=== PATIENT | male | born 1935 | race Caucasian/White ===

== ENCOUNTER 2016-11-19 02:28 | Inpatient (IN) | payer MEDICARE ==
[~2016-11-19] VITALS: Ht 182.9 cm; Wt 109.9 kg
[2016-11-19 04:14] VITALS: BP 182/94
[2016-11-19] MEDS ORDERED: PRED-220 PO (04:29)
[2016-11-19] MEDS ORDERED: ACET325T9 PO (04:29)
[2016-11-19] MEDS ORDERED: METO50TA10 PO (04:29)
[2016-11-19] MEDS ORDERED: SPIR25TA PO (04:29)
[2016-11-19] MEDS ORDERED: ASCO-78 PO (04:29)
[2016-11-19] MEDS ORDERED: SERT50TA PO (04:29)
[2016-11-19] MEDS ORDERED: GLYB2.5T2 PO (04:29)
[2016-11-19] MEDS ORDERED: MELA3TAB2 PO (04:29)
[2016-11-19] MEDS ORDERED: ZINC220T PO (04:29)
[2016-11-19] MEDS ORDERED: ALLO100T PO (04:29)
[2016-11-19] MEDS ORDERED: TELM40TA PO (04:29)
[2016-11-19] MEDS ORDERED: RIVA15TA PO (04:29)
[2016-11-19] MEDS ORDERED: ANTI-COAG MONITOR BY PHARMACY. MC PRN (04:45)
[2016-11-19] MEDS ORDERED: MAG HYDROX/AL HYDROX/SIMETH 30 ML ORAL.SUSP PO PRN (04:45)
[2016-11-19] MEDS ORDERED: ACETAMINOPHEN 325 MG TABLET PO PRN ×2 (04:45→17:39)
[2016-11-19] MEDS ORDERED: METHYL SALICYLATE/MENTHOL TOPICAL OINTMENT 29GM TUBE. TP PRN (04:45)
--- NOTE | 2016-11-19 05:35 | EKG ---
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
[2016-11-19 06:26] LABS: BASO % 1 % (0-3); EOS # 0.1 x10^3/uL (0.0-0.7); EOS % 1 % (0-3); HEMATOCRIT 33.4 % (39.0-53.0); HEMOGLOBIN 11.2 g/dL (13.0-17.5); LYMPH # 0.8 x10^3/uL (1.0-4.8); LYMPH % 15 % (24-48); MEAN CORPUSCULAR HEMOGLOBIN 31 pg (25-35); MEAN CORPUSCULAR HGB CONC 33 g/dL (31-37); MEAN CORPUSCULAR VOLUME 92 fL (79-100); MONO # 0.5 x10^3/uL (0.0-1.1); MONO % 9 % (0-9); NEUT # 3.7 x10^3uL (1.8-7.7); NEUT % 74 % (31-73); PLATELET COUNT 172 x10^3/uL (140-400); RED BLOOD COUNT 3.63 x10^6/uL (4.30-5.70); WHITE BLOOD COUNT 5.1 x10^3/uL (4.0-11.0)
[2016-11-19 06:40] LABS: ALBUMIN 3.2 g/dL (3.4-5.0); ALBUMIN/GLOBULIN RATIO 1.1 (1.0-1.7); CALCIUM 9.6 mg/dL (8.5-10.1); CREATININE 1.5 mg/dL (0.7-1.3); GFR 44.7; MAGNESIUM 1.8 mg/dL (1.8-2.4); POTASSIUM 3.8 mmol/L (3.5-5.1); TOTAL BILIRUBIN 0.5 mg/dL (0.2-1.0); TOTAL PROTEIN 6.2 g/dL (6.4-8.2)
[2016-11-19] MEDS ORDERED: METOPROLOL SUCC 24HR ER 50 MG TAB.ER.24H. PO SCH (09:00)
[2016-11-19] MEDS: SERTRALINE 50 MG TABLET. PO SCH (09:21)
[2016-11-19] MEDS: ASCORBIC ACID 500 MG TABLET PO SCH ×2 (09:21→20:25)
[2016-11-19] MEDS: SPIRONOLACTONE 25 MG TABLET PO SCH (09:21)
[2016-11-19] MEDS: ZINC SULFATE 220 MG CAPSULE. PO SCH (09:21)
[2016-11-19] MEDS: ALLOPURINOL 100 MG TABLET. PO SCH (09:21)
[2016-11-19] MEDS: LOSARTAN 50 MG TABLET. PO SCH (09:22)
[2016-11-19] MEDS: predniSONE 10 MG TABLET PO SCH (09:22)
[2016-11-19] MEDS: glyBURIDE 5 MG TABLET PO SCH (09:22)
[2016-11-19] MEDS: RIVAROXABAN 15 MG TABLET. PO SCH (09:22)
[2016-11-19 11:21] LABS: THYROID STIM HORMONE (TSH) 1.526 uIU/mL (0.358-3.740)
[2016-11-19 15:55] VITALS: BP 170/79
[2016-11-19] MEDS ORDERED: METOPROLOL SUCC 24HR ER 25 MG TAB.ER.24H. PO ONE (17:15)
[2016-11-19 18:08] LABS: T3 TOTAL 89 ng/dL (71-180); THYROXINE 5.7 ug/dL (4.5-12.0)
--- NOTE | 2016-11-19 19:52 | PDOC ---
Exam Reynaldo Demential Exam: Reynaldo Note: Please also refer to the separate dictated note~for this date of service dictated separately.~Patient seen individually. Discussed the patient with Nursing staff reviewed the chart.~Reviewed interim history and current functioning. Reviewed vital signs,~Labs/ Radiology~and current medications noted below. Continue current treatment with the changes noted in the dictated addendum note Assessment: Vital Signs: Vital Signs Date Time Temp Pulse Resp B/P (MAP) Pulse Ox O2 Delivery O2 Flow Rate FiO2 11/19/16 17:33 83 170/79 11/19/16 15:55 98.0 20 97 11/19/16 04:14 Room Air Labs: Laboratory Tests Test 11/19/16 06:05 White Blood Count 5.1 x10^3/uL (4.0-11.0) Red Blood Count 3.63 x10^6/uL (4.30-5.70) L Hemoglobin 11.2 g/dL (13.0-17.5) L Hematocrit 33.4 % (39.0-53.0) L Mean Corpuscular Volume 92 fL (79-100) Mean Corpuscular Hemoglobin 31 pg (25-35) Mean Corpuscular Hemoglobin Concent 33 g/dL (31-37) Red Cell Distribution Width 14.0 % (11.5-14.5) Platelet Count 172 x10^3/uL (140-400) Neutrophils (%) (Auto) 74 % (31-73) H Lymphocytes (%) (Auto) 15 % (24-48) L Monocytes (%) (Auto) 9 % (0-9) Eosinophils (%) (Auto) 1 % (0-3) Basophils (%) (Auto) 1 % (0-3) Neutrophils # (Auto) 3.7 x10^3uL (1.8-7.7) Lymphocytes # (Auto) 0.8 x10^3/uL (1.0-4.8) L Monocytes # (Auto) 0.5 x10^3/uL (0.0-1.1) Eosinophils # (Auto) 0.1 x10^3/uL (0.0-0.7) Basophils # (Auto) 0.0 x10^3/uL (0.0-0.2) Sodium Level 145 mmol/L (136-145) Potassium Level 3.8 mmol/L (3.5-5.1) Chloride Level 109 mmol/L (98-107) H Carbon Dioxide Level 27 mmol/L (21-32) Anion Gap 9 (6-14) Blood Urea Nitrogen 19 mg/dL (8-26) Creatinine 1.5 mg/dL (0.7-1.3) H Estimated GFR (Cockcroft-Gault) 44.7 BUN/Creatinine Ratio 13 (6-20) Glucose Level 106 mg/dL (70-99) H Calcium Level 9.6 mg/dL (8.5-10.1) Magnesium Level 1.8 mg/dL (1.8-2.4) Iron Level 35 ug/dL (65-175) L Total Iron Binding Capacity 267 ug/dL (250-450) Iron Saturation 13 % (15-34) L Total Bilirubin 0.5 mg/dL (0.2-1.0) Aspartate Amino Transferase (AST) 10 U/L (15-37) L Alanine Aminotransferase (ALT) 14 U/L (16-63) L Alkaline Phosphatase 53 U/L (46-116) Total Protein 6.2 g/dL (6.4-8.2) L Albumin 3.2 g/dL (3.4-5.0) L Albumin/Globulin Ratio 1.1 (1.0-1.7) Triglycerides Level 156 mg/dL (0-150) H Cholesterol Level 178 mg/dL (0-200) LDL Cholesterol, Calculated 118 mg/dL (0-100) H VLDL Cholesterol, Calculated 31 mg/dL (0-40) Non-HDL Cholesterol Calculated 149 mg/dL (0-129) H HDL Cholesterol 29 mg/dL (40-60) L Cholesterol/HDL Ratio 6.0 Vitamin B12 Level 317 pg/mL (247-911) 25-Hydroxy Vitamin D Total Pending Thyroid Stimulating Hormone (TSH) 1.526 uIU/mL (0.358-3.740) Thyroxine (T4) 5.7 ug/dL (4.5-12.0) Total Triiodothyronine (TT3) 89 ng/dL (71-180) RPR Titer Additional Testing Pending Current Medications: Meds: Current Medications Acetaminophen (Tylenol) 650 mg PRN Q6HRS PRN PO PAIN / TEMP; Start 11/19/16 at 04:45; Stop 11/19/16 at 17:39; Status DC Multi-Ingredient Ointment (Analgesic Morrow) 1 rajesh PRN QID PRN TP MUSCLE PAIN; Start 11/19/16 at 04:45 Al Hydroxide/Mg Hydroxide (Mylanta Plus Xs) 15 ml PRN AFTMEALHC PRN PO DYSPEPSIA; Start 11/19/16 at 04:45 Magnesium Hydroxide (Milk Of Magnesia) 2,400 mg PRN QHS PRN PO CONSTIPATION; Start 11/19/16 at 04:45 Sertraline HCl (Zoloft) 50 mg DAILY PO Last administered on 11/19/16 09:21; Start 11/19/16 at 09:00 Melatonin 3 mg QHS PO ; Start 11/19/16 at 21:00 Allopurinol (Zyloprim) 100 mg DAILY PO Last administered on 11/19/16 09:21; Start 11/19/16 at 09:00 Metoprolol Succinate (Toprol Xl) 50 mg DAILY PO Last administered on 11/19/16 09:21; Start 11/19/16 at 09:00; Stop 11/19/16 at 17:14; Status DC Prednisone (Prednisone) 10 mg DAILY PO Last administered on 11/19/16 09:22; Start 11/19/16 at 09:00 Rivaroxaban (Xarelto) 15 mg DAILY PO Last administered on 11/19/16 09:22; Start 11/19/16 at 09:00 Spironolactone (Aldactone) 25 mg DAILY PO Last administered on 11/19/16 09:21; Start 11/19/16 at 09:00 Ascorbic Acid (Vitamin C) 500 mg BID PO Last administered on 11/19/16 09:21; Start 11/19/16 at 09:00 Glyburide (Diabeta) 2.5 mg DAILYWBKFT PO Last administered on 11/19/16 09:22; Start 11/19/16 at 08:00 Losartan Potassium (Cozaar) 100 mg DAILY PO Last administered on 11/19/16 09:22 ; Start 11/19/16 at 09:00 Zinc Sulfate (Orazinc) 220 mg DAILY PO Last administered on 11/19/16 09:21; Start 11/19/16 at 09:00 Info (Anti-Coagulation Monitoring By Pharmacy) 1 each PRN DAILY PRN MC SEE COMMENTS; Start 11/19/16 at 04:45 Olanzapine (ZyPREXA ZYDIS) 2.5 mg PRN Q2HR PRN PO PSYCHOSIS; Start 11/19/16 at 05:15 Metoprolol Succinate (Toprol Xl) 50 mg 1X ONCE PO Last administered on t 17:33; Start 11/19/16 at 17:15; Stop 11/19/16 at 17:16; Status DC Metoprolol Succinate (Toprol Xl) 100 mg DAILY PO ; Start 11/20/16 at 09:00 Acetaminophen (Tylenol) 650 mg PRN Q6HRS PRN PO PAIN / TEMP; Start 11/19/16 at 17:39 Mirtazapine (Remeron) 7.5 mg QHS PO ; Start 11/19/16 at 21:00 Risperidone (RisperDAL) 0.25 mg QHS PO ; Start 11/19/16 at 21:00 Active Scripts Active Reported Zinc Sulfate 220 Mg Tablet 220 Mg PO DAILY Micardis (Telmisartan) 40 Mg Tablet 40 Mg PO BID Aldactone (Spironolactone) 25 Mg Tablet 25 Mg PO DAILY Zoloft (Sertraline Hcl) 50 Mg Tablet 50 Mg PO DAILY Xarelto (Rivaroxaban) 15 Mg Tablet 15 Mg PO DAILY Prednisone 10 Mg Tablet 10 Mg PO DAILY Take 3 tablets by mouth twice a day for 3 days, then take 2 tablets by mouth twice a day for 3 days, then take 1 tablet by mouth twice a day for 3 days, then take 1 tablet by mouth daily x 3 days, then stop. Metoprolol Succinate ( Xl ) (Metoprolol Succinate) 50 Mg Tab.er.24h 50 Mg PO DAILY Glyburide 2.5 Mg Tablet 2.5 Mg PO DAILY Melatonin 3 Mg Tablet 3 Mg PO QHS Vitamin C (Ascorbate Calcium) 500 Mg Tablet 500 Mg PO BID Allopurinol 100 Mg Tablet 100 Mg PO DAILY Tylenol (Acetaminophen) 325 Mg Tablet 325 Mg PO PRN Q4HRS PRN Diagnosis: Problems: (1) Anxiety disorder (2) Psychosis, atypical (3) Impulse control disorder JANEY LAI MD Nov 19, 2016 19:52
[2016-11-19] MEDS: risperiDONE 0.25 MG TABLET. PO SCH (20:27)
[2016-11-19] MEDS: MELATONIN 3 MG TABLET PO SCH (20:27)
[2016-11-19] MEDS: MIRTAZAPINE 7.5 MG TABLET. PO SCH (20:27)
--- NOTE | 2016-11-19 22:52 | CONS ---
DATE OF CONSULTATION: 11/19/2016 HISTORY OF PRESENT ILLNESS: The patient is an 81-year-old male patient who apparently was seen at [facility] with concerns for worsening hallucinations that began about 6 months ago. The patient's family is concerned because these hallucinations are happening more frequently. They initially occurred once or twice per month but now occur daily. He states he sees people black and white. Sometimes he sees multiple people, some memorable people including young girl with mental retardation and various exotic dancers and this is concerning because he feels that these people are real, not hallucinations, even though he describes them as hallucination. He denies any history of auditory hallucination. He states that this hallucination disappeared when he turns the light on and only happens at nighttime, never in the daytime. [facility] inpatient psychiatric stabilization. PAST MEDICAL HISTORY: Significant for atrial fibrillation, chronic obstructive pulmonary disease, type 2 diabetes, gout, hypertension, and stroke. PAST SURGICAL HISTORY: Significant for hemorrhoidectomy and knee surgery. 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 FAMILY HISTORY: Unremarkable. SOCIAL HISTORY: He is . He is a former smoker, used to smoke 3 packs per day for 20 years. He does not drink alcohol or use any recreational drugs. 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 ALLERGIES: He is allergic to PENICILLIN, CIPROFLOXACIN, CODEINE, DABIGATRAN ETEXILATE, FENOFIBRATE, NIACIN, OMEGA 3, AND TIOTROPIUM. MEDICATIONS: He is currently on following medications: He is on Tylenol 650 mg every 4 hours, allopurinol 100 mg once a day, ascorbate calcium 500 mg twice a day, glyburide 2.5 mg once a day, melatonin 3 mg at bedtime, metoprolol succinate 50 mg once a day, prednisone 10 mg once a day, rivaroxaban or Xarelto 15 mg once a day, sertraline 50 mg once a day. He is on spironolactone 25 mg once a day, Micardis 40 mg p.o. b.i.d., zinc sulfate 220 mg once a day. PHYSICAL EXAMINATION: GENERAL: When I examined him, he was sitting on the edge of the bed comfortably in no apparent respiratory distress. He is somewhat pale, but no jaundice, cyanosis, or thyromegaly. No jugular venous distention. No limb edema. VITAL SIGNS: His heart rate was 83, blood pressure was 170/79, temperature was 98, respiratory rate 20, and oxygen saturation was 97%. HEAD, EYES, EARS, NOSE, AND THROAT: Showed normocephalic, atraumatic. NECK: Supple. HEART: Showed normal first and second heart sounds with no gallop, rub, or murmur. CHEST: Clear to auscultation. No crepitation or rhonchi. ABDOMEN: Distended, soft, nontender. NEUROLOGIC: He is awake, alert. All his cranial nerves are intact. EXTREMITIES: He moves extremities without difficulty, ambulates with a walker. LABORATORY DATA: His lab work showed a white cell count of 5100, hemoglobin 11, hematocrit 33, MCV 92, and platelet count of 172,000. Serum sodium was 145, potassium 3.8, chloride 109, bicarbonate 27, anion gap of 9, BUN 19, creatinine 1.5, estimated GFR was 44 mL per minute, his glucose 106, calcium was 9.6, and magnesium 1.8. Serum iron was 35, TIBC was 267, and iron saturation was 13%. Total bilirubin, AST, ALT, alkaline phosphatase were normal. Total protein 6.2, albumin 3.2. His triglycerides 156. Total cholesterol was 78, LDL cholesterol was 118, VLDL was 31, and HDL cholesterol was 29. Vitamin B12 was 317 picogram and TSH was 1.5-6. IMPRESSION: In summary, this is an 81-year-old male patient who was evaluated at the [facility] for a new onset of hallucinations that started about 6 months ago initially occasionally and now it is more persistent. 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 He has no past psychiatric history with no previous admission to any psych unit. No suicidal or homicidal ideation. He has multiple medical problems including atrial fibrillation, chronic obstructive pulmonary disease, type 2 diabetes, gout, hypertension and has had a stroke. So far, all his vital signs are stable, although his blood pressure is somewhat high. His lab work showed that he has deranged kidney function with a creatinine of 1.5 and mild protein-calorie malnutrition. From the medical point of view, the patient seems to be mostly stable, although his blood pressure is not optimally controlled and his kidney function is slightly abnormal. PLAN: My plan is to observe him further and to see if the blood pressure gets better after perhaps using all his medications as he is on losartan potassium. He is on spironolactone and metoprolol. I will check also his lab work including his hemoglobin A1c and scan his bladder to make sure that he does not have any urinary retention. Thank you, Dr. Hawkins, for allowing me to participate in the care of this patient. CONNOR GRAVES MD DR: GHISLAINE/nila JOB#: [id number] / [id number]
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
--- NOTE | 2016-11-20 01:14 | ACF ---
Admission Criteria Forms PSYCHIATRIC DISORDERS Clinical Indications for Inpatient Care (Place 'X' for any and all applicable criteria): Ongoing inpatient care may be needed for 1 or more of the following(1)(2)(3)(4)( 6)(7)(8): [ ]I. Danger to self or others not manageable at lower level of care. [ ]II. Grave disability (eg, inability to perform self care necessary at lower level of care) [ ]III. Agitation or inappropriate behavior interfering with care for primary condition (eg, attempting to discontinue lines or drains prematurely, unable to cooperate with respiratory care) [x]IV. Severe disability or disorder indicated by ALL of the following: [x]a) Severe behavioral health disorder-related symptoms or condition indicated by 1 or more of the following: [ ]i) Severe problem with cognition, memory, judgment, or impulse control [x]ii) Severe clinical manifestations (eg, hallucinations, delusions, other acute psychotic symptoms, domo, extreme agitation or anxiety) [x]b) Patient management at lower level of care is not feasible until acute intervention or modification is initiated. Extended stay beyond goal length of stay for the primary condition may be needed untilALLof the following are present(1)(2)(3)(4)(722)(23): [ ]a) Danger to self or others is absent or manageable at lower level of care [ ]b) Behavior crisis management, including physical or chemical restraints, is required and is not available at a lower level of care. [ ]c) Behavioral symptoms (e.g., agitation, somnolence, inappropriate behavior) are present, and are not manageable at a lower level of care. [ ]d) Patient cannot understand follow-up treatment and crisis plan. [ ]e) Provider and supports are sufficiently available at lower level of care. [ ]f) Patient can participate (e.g., verify absence of plan for harm) and is in needed of monitoring. The original [facility] [employer] content created by [facility] [employer] has been revised. The portions of the content which have been revised are identified through the use of italic text, and Jan [employer] has neither reviewed nor approved the modified material. All other unmodified content is copyright [facility] [employer]. Please see references footnoted in the original [facility] edition 2015 Admission Criteria Met?: Yes ANKIT FUNES Nov 20, 2016 01:14
[2016-11-20 06:05] VITALS: BP 149/79
[2016-11-20] MEDS: ZINC SULFATE 220 MG CAPSULE. PO SCH (07:49)
[2016-11-20] MEDS: ASCORBIC ACID 500 MG TABLET PO SCH ×2 (07:49→19:54)
[2016-11-20] MEDS: glyBURIDE 5 MG TABLET PO SCH (07:49)
[2016-11-20] MEDS: SPIRONOLACTONE 25 MG TABLET PO SCH (07:50)
[2016-11-20] MEDS: ALLOPURINOL 100 MG TABLET. PO SCH (07:50)
[2016-11-20] MEDS: RIVAROXABAN 15 MG TABLET. PO SCH (07:50)
[2016-11-20] MEDS: predniSONE 10 MG TABLET PO SCH (07:50)
[2016-11-20] MEDS: LOSARTAN 50 MG TABLET. PO SCH (07:50)
[2016-11-20] MEDS: SERTRALINE 50 MG TABLET. PO SCH (07:50)
[2016-11-20] MEDS: METOPROLOL SUCC 24HR ER 100 MG TAB.ER.24H. PO SCH (07:52)
--- NOTE | 2016-11-20 14:29 | RAD ---
CT head without contrast 11/20/2016 Clinical indication: History of brain tumor resection in November 2014. Comparison: None. Technique: Multiple noncontrast CT images of the head obtained according to standard protocol. PQRS Compliance Statement: One or more of the following individualized dose reduction techniques were utilized for this examination: 1. Automated exposure control 2. Adjustment of the mA and/or kV according to patient size 3. Use of iterative reconstruction technique Head findings: There are postsurgical changes of a prior translabyrinthine right tumor debulking with multiple punctate foci of low attenuation underlying the cranioplasty which likely represents fat packing. There is high density soft tissue adjacent to the prior resection which likely represents residual tumor. There are wedge-shaped low-attenuation old infarct in medial left cerebellar hemisphere. Ventricles and subarachnoid spaces are normal in size and configuration. There are patchy supratentorial hemispheric white matter low attenuation. The basal cisterns are patent. Waddell-white matter interfaces are otherwise maintained. No midline shift. Visualized globes and orbits are unremarkable. Impression: 1. No acute intracranial hemorrhage or midline shift. 2. Prior right translabyrinthine tumor debulking with probable fat packing subjacent to the cranioplasty with adjacent high density soft tissue which likely represents residual tumor. 3. Old medial left cerebellar infarct and mild nonspecific white matter disease, most, seen in chronic small vessel ischemic disease.
[2016-11-20 16:22] VITALS: BP 184/94
--- NOTE | 2016-11-20 16:54 | RAD ---
Renal ultrasound, 11/20/2016: History: Impaired renal function The right kidney measures 10.7 cm in length while the left kidney measures 11.8 cm. There is no evidence of hydronephrosis. Several small cysts are present in both kidneys. The largest of these on the right lies in the upper pole and measures 2.5 cm. The largest cyst on the left is 1.4 cm. The renal parenchymal echogenicity is otherwise within normal limits. Limited views of the urinary bladder demonstrate an impression upon its base due to an enlarged prostate gland. The bladder is otherwise unremarkable. IMPRESSION: 1. Small bilateral renal cysts. 2. No evidence of renal obstruction.
[2016-11-20] MEDS: MIRTAZAPINE 7.5 MG TABLET. PO SCH (19:54)
[2016-11-20] MEDS: MELATONIN 3 MG TABLET PO SCH (19:54)
[2016-11-20] MEDS: risperiDONE 0.25 MG TABLET. PO SCH (19:54)
[2016-11-20] MEDS: APIXABAN 2.5 MG TABLET PO SCH (19:56)
[2016-11-20] MEDS: MECLIZINE 12.5 MG TABLET. PO SCH (19:56)
--- NOTE | 2016-11-20 20:05 | PDOC ---
Exam Reynaldo Demential Exam: Reynaldo Note: Please also refer to the separate dictated note~for this date of service dictated separately.~Patient seen individually. Discussed the patient with Nursing staff reviewed the chart.~Reviewed interim history and current functioning. Reviewed vital signs,~Labs/ Radiology~and current medications noted below. Continue current treatment with the changes noted in the dictated addendum note Assessment: Vital Signs: Vital Signs Date Time Temp Pulse Resp B/P (MAP) Pulse Ox O2 Delivery O2 Flow Rate FiO2 11/20/16 16:22 97.0 77 18 184/94 (124) 96 11/19/16 04:14 Room Air I&O Intake and Output 11/20/16 07:00 Intake Total 720 ml Balance 720 ml Intake Oral 720 ml Labs: Laboratory Tests Test 11/20/16 06:14 Uric Acid 8.4 mg/dL (3.5-7.2) H Current Medications: Meds: Current Medications Acetaminophen (Tylenol) 650 mg PRN Q6HRS PRN PO PAIN / TEMP; Start 11/19/16 at 04:45; Stop 11/19/16 at 17:39; Status DC Multi-Ingredient Ointment (Analgesic [place]) 1 rajesh PRN QID PRN TP MUSCLE PAIN; Start 11/19/16 at 04:45 Al Hydroxide/Mg Hydroxide (Mylanta Plus Xs) 15 ml PRN AFTMEALHC PRN PO DYSPEPSIA; Start 11/19/16 at 04:45 Magnesium Hydroxide (Milk Of Magnesia) 2,400 mg PRN QHS PRN PO CONSTIPATION; Start 11/19/16 at 04:45 Sertraline HCl (Zoloft) 50 mg DAILY PO Last administered on 11/20/16 07:50; Start 11/19/16 at 09:00 Melatonin 3 mg QHS PO Last administered on 11/20/16 19:54; Start 11/19/16 at 21: 00 Allopurinol (Zyloprim) 100 mg DAILY PO Last administered on 11/20/16 07:50; Start 11/19/16 at 09:00 Metoprolol Succinate (Toprol Xl) 50 mg DAILY PO Last administered on 11/19/16 09:21; Start 11/19/16 at 09:00; Stop 11/19/16 at 17:14; Status DC Prednisone (Prednisone) 10 mg DAILY PO Last administered on 11/20/16 07:50; Start 11/19/16 at 09:00 Rivaroxaban (Xarelto) 15 mg DAILY PO Last administered on 11/20/16 07:50; Start 11/19/16 at 09:00; Stop 11/20/16 at 17:18; Status DC Spironolactone (Aldactone) 25 mg DAILY PO Last administered on 11/20/16 07:50; Start 11/19/16 at 09:00 Ascorbic Acid (Vitamin C) 500 mg BID PO Last administered on 11/20/16 19:54; Start 11/19/16 at 09:00 Glyburide (Diabeta) 2.5 mg DAILYWBKFT PO Last administered on 11/20/16 07:49; Start 11/19/16 at 08:00 Losartan Potassium (Cozaar) 100 mg DAILY PO Last administered on 11/20/16 07:50 ; Start 11/19/16 at 09:00 Zinc Sulfate (Orazinc) 220 mg DAILY PO Last administered on 11/20/16 07:49; Start 11/19/16 at 09:00 Info (Anti-Coagulation Monitoring By Pharmacy) 1 each PRN DAILY PRN [facility] SEE COMMENTS; Start 11/19/16 at 04:45 Olanzapine (ZyPREXA ZYDIS) 2.5 mg PRN Q2HR PRN PO PSYCHOSIS; Start 11/19/16 at 05:15 Metoprolol Succinate (Toprol Xl) 50 mg 1X ONCE PO Last administered on 17:33; Start 11/19/16 at 17:15; Stop 11/19/16 at 17:16; Status DC Metoprolol Succinate (Toprol Xl) 100 mg DAILY PO Last administered on 11/20/16 07:52; Start 11/20/16 at 09:00 Acetaminophen (Tylenol) 650 mg PRN Q6HRS PRN PO PAIN / TEMP; Start 11/19/16 at 17:39 Mirtazapine (Remeron) 7.5 mg QHS PO Last administered on 11/20/16 19:54; Start 11/19/16 at 21:00 Risperidone (RisperDAL) 0.25 mg QHS PO Last administered on 11/20/16 19:54; Start 11/19/16 at 21:00 Apixaban (Eliquis) 2.5 mg BID PO Last administered on 11/20/16 19:56; Start 11/20/16 at 21:00 Meclizine HCl (Antivert) 25 mg BID PO Last administered on 11/20/16 19:56; Start 11/20/16 at 21:00 Ferrous Sulfate (Feosol) 325 mg DAILYWBKFT PO ; Start 11/21/16 at 08:00 Cyanocobalamin (Vitamin B-12) 1,000 mcg DAILY PO ; Start 11/21/16 at 09:00 Active Scripts Active Reported Zinc Sulfate 220 Mg Tablet 220 Mg PO DAILY Micardis (Telmisartan) 40 Mg Tablet 40 Mg PO BID Aldactone (Spironolactone) 25 Mg Tablet 25 Mg PO DAILY Zoloft (Sertraline Hcl) 50 Mg Tablet 50 Mg PO DAILY Xarelto (Rivaroxaban) 15 Mg Tablet 15 Mg PO DAILY Prednisone 10 Mg Tablet 10 Mg PO DAILY Take 3 tablets by mouth twice a day for 3 days, then take 2 tablets by mouth twice a day for 3 days, then take 1 tablet by mouth twice a day for 3 days, then take 1 tablet by mouth daily x 3 days, then stop. Metoprolol Succinate ( Xl ) (Metoprolol Succinate) 50 Mg Tab.er.24h 50 Mg PO DAILY Glyburide 2.5 Mg Tablet 2.5 Mg PO DAILY Melatonin 3 Mg Tablet 3 Mg PO QHS Vitamin C (Ascorbate Calcium) 500 Mg Tablet 500 Mg PO BID Allopurinol 100 Mg Tablet 100 Mg PO DAILY Tylenol (Acetaminophen) 325 Mg Tablet 325 Mg PO PRN Q4HRS PRN Diagnosis: Problems: (1) Anxiety disorder (2) Psychosis, atypical (3) Impulse control disorder JANEY LAI MD Nov 20, 2016 20:05
[2016-11-20] MEDS: MAGNESIUM HYDROXIDE 2,400 MG/30 ML ORAL.SUSP. PO PRN (21:01)
[2016-11-21 06:26] VITALS: BP 176/95
--- NOTE | 2016-11-21 07:03 | CONS ---
DATE OF CONSULTATION: NEURO CONSULT REFERRING PHYSICIAN: Dr. Hawkins. REASON FOR CONSULTATION: Severe dizziness and unsteadiness. HISTORY OF PRESENT ILLNESS: This is an 81-year-old right-handed white male who was admitted to Emergency Room today after he presented with chief complaint of six-month history of visual hallucinations. The patient describes night visual hallucinations seeing some memorable people and exotic dancers. The hallucination usually disappears after he turns the light on. Therefore, he always asked to have a flashlight at night. The hallucination frequency becomes more intense and frequent. Neuro exam was requested because the patient has been complaining of dizziness described as "unsteadiness" and tendency to fall. 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 The patient stated he has had frequent falls in the last year or so. On occasions he complains of global headaches. He denies nausea, vomiting, photophobia, or phonophobia. He also complains of hearing loss on the right side after doing the craniotomy. The patient denies dysarthria, dysphagia, diplopia. PAST MEDICAL HISTORY: Significant for atrial fibrillations, COPD, diabetes mellitus type 2, history of stroke and concussion, hypertension, and gout. PAST SURGICAL HISTORY: Significant for total right knee replacement, craniotomy as described above. The patient stated his hallucinations started 1 month after the tumor removal. FAMILY HISTORY: Noncontributory. SOCIAL HISTORY: The patient is . He denies smoking. He used to smoke 3 packs of cigarettes daily for 20 years. He denies alcohol drinking or illicit drug use. He is a retired [employer]. ALLERGIES: PENICILLIN, CIPROFLOXACIN, CODEINE, FENOFIBRATE, NIACIN, AND OMEGA 3. CURRENT MEDICATIONS: Micardis 40 mg p.o. twice daily, prednisone 10 mg once daily, glyburide 2.5 mg once daily, melatonin 3 mg at bedtime, metoprolol succinate 50 mg once daily, Xarelto 15 mg once daily, allopurinol 100 mg once daily, and Tylenol p.r.n.. REVIEW OF SYSTEMS: A 10-point review of system was performed and consistent with unsteadiness, intermittent headaches, and visual hallucinations which is described above, otherwise unremarkable. PHYSICAL EXAMINATION: GENERAL: Well developed, well nourished white male, not in acute distress. VITAL SIGNS: Blood pressure ____, respiratory rate 20, pulse is 83 and regular. CARDIOVASCULAR: ____ rhythm, normal S1, S2. There is no S3 or S4 or murmur. ABDOMEN: Soft. Bowel sounds positive. EXTREMITIES: Negative for cyanosis, clubbing, or pitting edema. NEUROLOGIC: Mental status: The patient is alert and oriented x3. The speech is fluent. There is no language dysfunction. The patient recalls 2/3 immediately and after 1 and 3 minutes. Judgment and abstract thinking are normal. The patient denies hallucination or delusion. CRANIAL NERVES: Visual norman are full. The pupils are reactive to light and accommodation. The extraocular movements are intact. There is no nystagmus. There is no facial motor or sensory deficit. Hearing is diminished over the right side. The palate is elevated symmetrically. Sternocleidomastoid muscles are powerful bilaterally. The patient shrugs his shoulders symmetrically and protrudes his tongue in the midline without fasciculation or atrophy. MOTOR: No focal muscle bulk was seen. The tone is normal. The strength is 5/5 throughout. Sensory examination revealed diminished pinprick and light touch senses over the left face, arm, and leg, probably secondary to right craniotomy. Sensory examination was normal to pinprick, light touch, vibratory and position senses. Deep tendon reflexes were asymmetric and hypoactive with absent Achilles responses. Gait: The stance is unsteady. The patient ambulates with a walker, however, he has abnormal [id number] bilaterally. LABORATORY DATA: CBC revealed white blood cells of 5100, hemoglobin 11.2, hematocrit 33.4, platelet count 172,000. Chemistry revealed sodium of 145, potassium 3.8, chloride 109, CO2 of 27, BUN 19, creatinine 1.5, glucose 106, uric acid 8.4, calcium 9.6, iron is 35 with normal TIBC. Lipid profile revealed elevated triglyceride and LDL and low HDL, vitamin B12 in the low normal at 317. TSH, thyroid profile is normal. 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 Otherwise, no acute intracranial hemorrhage or stroke. IMPRESSION: 1. Dizziness, "unsteadiness," probably multifactorial including right labyrinthine tumor and postoperative changes along with cerebellar infarct. 2. Multiple medical problems include hyperlipidemia, hypertension, diabetes mellitus, anxiety, and gout. 3. Anemia, probably of iron deficiency and low normal vitamin B12. RECOMMENDATIONS: 1. Continue with current management initiated by Dr. Antoine and Dr. Hawkins. 2. We will try meclizine 25 mg b.i.d. - t.i.d. 3. Vitamin B12 and iron supplements. M Angel ROBB MD DR: TAMEKA/nila JOB#: [id number] / [id number]
[2016-11-21] MEDS: APIXABAN 2.5 MG TABLET PO SCH ×2 (09:19→19:37)
[2016-11-21] MEDS: SERTRALINE 50 MG TABLET. PO SCH (09:19)
[2016-11-21] MEDS: METOPROLOL SUCC 24HR ER 100 MG TAB.ER.24H. PO SCH (09:20)
[2016-11-21] MEDS: MECLIZINE 12.5 MG TABLET. PO SCH ×2 (09:20→19:37)
[2016-11-21] MEDS: ZINC SULFATE 220 MG CAPSULE. PO SCH (09:20)
[2016-11-21] MEDS: ALLOPURINOL 100 MG TABLET. PO SCH (09:21)
[2016-11-21] MEDS: predniSONE 10 MG TABLET PO SCH (09:21)
[2016-11-21] MEDS: SPIRONOLACTONE 25 MG TABLET PO SCH (09:21)
[2016-11-21] MEDS: ASCORBIC ACID 500 MG TABLET PO SCH ×2 (09:21→19:37)
[2016-11-21] MEDS: glyBURIDE 5 MG TABLET PO SCH (09:21)
[2016-11-21] MEDS: LOSARTAN 50 MG TABLET. PO SCH (09:22)
[2016-11-21] MEDS: CYANOCOBALAMIN (VITAMIN B-12) 1,000 MCG TABLET. PO SCH (09:26)
[2016-11-21] MEDS: FERROUS SULFATE 325 MG TABLET PO SCH (09:30)
[2016-11-21 16:34] VITALS: BP 154/90
[2016-11-21] MEDS: MELATONIN 3 MG TABLET PO SCH (19:36)
[2016-11-21] MEDS: risperiDONE 0.25 MG TABLET. PO SCH (19:37)
--- NOTE | 2016-11-21 21:09 | PN ---
DATE: 11/20/2016 This is a late entry for 11/20/2016 and covers elements not covered in my initial note. SUBJECTIVE: The patient was seen individually evening of 11/20/2016. He slept 7-1/[address] head has been completed and I have discussed with Dr. Del Angel, Neurology about some remaining intracranial lesion, but this is known from the past history. No clear hallucinations noted the previous night and he is tolerating the Risperdal, which was initiated at 0.25 mg at bedtime. He is quite aware of his medications and in fact corrected the nursing staff at one point. REVIEW OF SYSTEMS: Ambulation impaired with a walker. No CV, , pulmonary, eye, ENT system symptoms on review. MENTAL STATUS EXAM: Oriented to himself and situation. Speech is coherent. He is pleasant. Verbal abstraction fair, computation impaired, language function intact. Mood and affect showing improvement. No active suicidal or homicidal ideation. No active hallucinations. LABORATORY DATA: Reviewed. 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 PLAN: Continue Risperdal 0.25 mg at bedtime, Remeron 7.5 mg at bedtime, Zoloft 50 mg a day, Zyprexa p.r.n., melatonin 3 mg at bedtime. Adjust further as clinically indicated. MAN Ainsley LAI MD DR: LUZ/nila JOB#: [id number] / [id number]
--- NOTE | 2016-11-21 22:25 | PDOC ---
Exam Reynaldo Demential Exam: Reynaldo Note: Please also refer to the separate dictated note~for this date of service dictated separately.~Patient seen individually. Discussed the patient with Nursing staff reviewed the chart.~Reviewed interim history and current functioning. Reviewed vital signs,~Labs/ Radiology~and current medications noted below. Continue current treatment with the changes noted in the dictated addendum note Assessment: Vital Signs: Vital Signs Date Time Temp Pulse Resp B/P (MAP) Pulse Ox O2 Delivery O2 Flow Rate FiO2 11/21/16 16:34 97.6 80 18 154/90 (111) 100 11/19/16 04:14 Room Air I&O Intake and Output 11/21/16 07:00 Intake Total 720 ml Balance 720 ml Intake Oral 720 ml Current Medications: Meds: Current Medications Acetaminophen (Tylenol) 650 mg PRN Q6HRS PRN PO PAIN / TEMP; Start 11/19/16 at 04:45; Stop 11/19/16 at 17:39; Status DC Multi-Ingredient Ointment (Analgesic [place]) 1 rajesh PRN QID PRN TP MUSCLE PAIN; Start 11/19/16 at 04:45 Al Hydroxide/Mg Hydroxide (Mylanta Plus Xs) 15 ml PRN AFTMEALHC PRN PO DYSPEPSIA; Start 11/19/16 at 04:45 Magnesium Hydroxide (Milk Of Magnesia) 2,400 mg PRN QHS PRN PO CONSTIPATION Last administered on 11/20/16 21:01; Start 11/19/16 at 04:45 Sertraline HCl (Zoloft) 50 mg DAILY PO Last administered on 11/21/16 09:19; Start 11/19/16 at 09:00 Melatonin 3 mg QHS PO Last administered on 11/21/16 19:36; Start 11/19/16 at 21: 00 Allopurinol (Zyloprim) 100 mg DAILY PO Last administered on 11/21/16 09:21; Start 11/19/16 at 09:00 Metoprolol Succinate (Toprol Xl) 50 mg DAILY PO Last administered on 11/19/16 09:21; Start 11/19/16 at 09:00; Stop 11/19/16 at 17:14; Status DC Prednisone (Prednisone) 10 mg DAILY PO Last administered on 11/21/16 09:21; Start 11/19/16 at 09:00 Rivaroxaban (Xarelto) 15 mg DAILY PO Last administered on 11/20/16 07:50; Start 11/19/16 at 09:00; Stop 11/20/16 at 17:18; Status DC Spironolactone (Aldactone) 25 mg DAILY PO Last administered on 11/21/16 09:21; Start 11/19/16 at 09:00 Ascorbic Acid (Vitamin C) 500 mg BID PO Last administered on 11/21/16 19:37; Start 11/19/16 at 09:00 Glyburide (Diabeta) 2.5 mg DAILYWBKFT PO Last administered on 11/21/16 09:21; Start 11/19/16 at 08:00 Losartan Potassium (Cozaar) 100 mg DAILY PO Last administered on 11/21/16 09:22 ; Start 11/19/16 at 09:00 Zinc Sulfate (Orazinc) 220 mg DAILY PO Last administered on 11/21/16 09:20; Start 11/19/16 at 09:00 Info (Anti-Coagulation Monitoring By Pharmacy) 1 each PRN DAILY PRN MC SEE COMMENTS; Start 11/19/16 at 04:45 Olanzapine (ZyPREXA ZYDIS) 2.5 mg PRN Q2HR PRN PO PSYCHOSIS; Start 11/19/16 at 05:15 Metoprolol Succinate (Toprol Xl) 50 mg 1X ONCE PO Last administered on 17:33; Start 11/19/16 at 17:15; Stop 11/19/16 at 17:16; Status DC Metoprolol Succinate (Toprol Xl) 100 mg DAILY PO Last administered on 11/21/16 09:20; Start 11/20/16 at 09:00 Acetaminophen (Tylenol) 650 mg PRN Q6HRS PRN PO PAIN / TEMP; Start 11/19/16 at 17:39 Mirtazapine (Remeron) 7.5 mg QHS PO Last administered on 11/20/16 19:54; Start 11/19/16 at 21:00; Stop 11/21/16 at 18:44; Status DC Risperidone (RisperDAL) 0.25 mg QHS PO Last administered on 11/21/16 19:37; Start 11/19/16 at 21:00 Apixaban (Eliquis) 2.5 mg BID PO Last administered on 11/21/16 19:37; Start 11/20/16 at 21:00 Meclizine HCl (Antivert) 25 mg BID PO Last administered on 11/21/16 19:37; Start 11/20/16 at 21:00 Ferrous Sulfate (Feosol) 325 mg DAILYWBKFT PO Last administered on 11/21/16 09: 30; Start 11/21/16 at 08:00 Cyanocobalamin (Vitamin B-12) 1,000 mcg DAILY PO Last administered on 11/21/16 09:26; Start 11/21/16 at 09:00 Trazodone HCl (Desyrel) 50 mg QHS PRN PO INSOMNIA, MAY REPEAT X1; Start at 18:45 Active Scripts Active Reported Zinc Sulfate 220 Mg Tablet 220 Mg PO DAILY Micardis (Telmisartan) 40 Mg Tablet 40 Mg PO BID Aldactone (Spironolactone) 25 Mg Tablet 25 Mg PO DAILY Zoloft (Sertraline Hcl) 50 Mg Tablet 50 Mg PO DAILY Xarelto (Rivaroxaban) 15 Mg Tablet 15 Mg PO DAILY Prednisone 10 Mg Tablet 10 Mg PO DAILY Take 3 tablets by mouth twice a day for 3 days, then take 2 tablets by mouth twice a day for 3 days, then take 1 tablet by mouth twice a day for 3 days, then take 1 tablet by mouth daily x 3 days, then stop. Metoprolol Succinate ( Xl ) (Metoprolol Succinate) 50 Mg Tab.er.24h 50 Mg PO DAILY Glyburide 2.5 Mg Tablet 2.5 Mg PO DAILY Melatonin 3 Mg Tablet 3 Mg PO QHS Vitamin C (Ascorbate Calcium) 500 Mg Tablet 500 Mg PO BID Allopurinol 100 Mg Tablet 100 Mg PO DAILY Tylenol (Acetaminophen) 325 Mg Tablet 325 Mg PO PRN Q4HRS PRN Diagnosis: Problems: (1) Anxiety disorder (2) Psychosis, atypical (3) Impulse control disorder JANEY LAI MD Nov 21, 2016 22:25
[2016-11-21] MEDS: traZODone 50 MG TABLET. PO PRN (23:50)
[2016-11-22 02:46] VITALS: BP 180/100
[2016-11-22 06:28] VITALS: BP 189/93
[2016-11-22] MEDS: FERROUS SULFATE 325 MG TABLET PO SCH (08:07)
[2016-11-22] MEDS: CYANOCOBALAMIN (VITAMIN B-12) 1,000 MCG TABLET. PO SCH (08:07)
[2016-11-22] MEDS: ZINC SULFATE 220 MG CAPSULE. PO SCH (08:07)
[2016-11-22] MEDS: LOSARTAN 50 MG TABLET. PO SCH (08:07)
[2016-11-22] MEDS: ASCORBIC ACID 500 MG TABLET PO SCH ×2 (08:07→19:50)
[2016-11-22] MEDS: METOPROLOL SUCC 24HR ER 100 MG TAB.ER.24H. PO SCH (08:07)
[2016-11-22] MEDS: APIXABAN 2.5 MG TABLET PO SCH ×2 (08:08→19:50)
[2016-11-22] MEDS: SERTRALINE 50 MG TABLET. PO SCH (08:08)
[2016-11-22] MEDS: SPIRONOLACTONE 25 MG TABLET PO SCH (08:08)
[2016-11-22] MEDS: glyBURIDE 5 MG TABLET PO SCH (08:08)
[2016-11-22] MEDS: ALLOPURINOL 100 MG TABLET. PO SCH (08:08)
[2016-11-22] MEDS: predniSONE 10 MG TABLET PO SCH (08:08)
[2016-11-22] MEDS: MECLIZINE 12.5 MG TABLET. PO SCH (09:00)
[2016-11-22 15:53] VITALS: BP 164/93
[2016-11-22] MEDS: risperiDONE 0.25 MG TABLET. PO SCH (19:50)
[2016-11-22] MEDS: MELATONIN 3 MG TABLET PO SCH (19:50)
[2016-11-22] MEDS: MIRTAZAPINE 15 MG TABLET PO SCH (19:51)
--- NOTE | 2016-11-22 19:56 | PDOC ---
Exam Reynaldo Demential Exam: Reynaldo Note: Please also refer to the separate dictated note~for this date of service dictated separately.~Patient seen individually. Discussed the patient with Nursing staff reviewed the chart.~Reviewed interim history and current functioning. Reviewed vital signs,~Labs/ Radiology~and current medications noted below. Continue current treatment with the changes noted in the dictated addendum note Assessment: Vital Signs: Vital Signs Date Time Temp Pulse Resp B/P (MAP) Pulse Ox O2 Delivery O2 Flow Rate FiO2 11/22/16 15:53 97.8 68 18 164/93 (116) 98 11/19/16 04:14 Room Air I&O Intake and Output 11/22/16 07:00 Intake Total 960 ml Output Total 1 ml Balance 959 ml Intake Oral 960 ml Output Urine Total 1 ml Current Medications: Meds: Current Medications Acetaminophen (Tylenol) 650 mg PRN Q6HRS PRN PO PAIN / TEMP; Start 11/19/16 at 04:45; Stop 11/19/16 at 17:39; Status DC Multi-Ingredient Ointment (Analgesic [place]) 1 rajesh PRN QID PRN TP MUSCLE PAIN; Start 11/19/16 at 04:45 Al Hydroxide/Mg Hydroxide (Mylanta Plus Xs) 15 ml PRN AFTMEALHC PRN PO DYSPEPSIA; Start 11/19/16 at 04:45 Magnesium Hydroxide (Milk Of Magnesia) 2,400 mg PRN QHS PRN PO CONSTIPATION Last administered on 11/20/16 21:01; Start 11/19/16 at 04:45 Sertraline HCl (Zoloft) 50 mg DAILY PO Last administered on 11/22/16 08:08; Start 11/19/16 at 09:00 Melatonin 3 mg QHS PO Last administered on 11/22/16 19:50; Start 11/19/16 at 21: 00 Allopurinol (Zyloprim) 100 mg DAILY PO Last administered on 11/22/16 08:08; Start 11/19/16 at 09:00 Metoprolol Succinate (Toprol Xl) 50 mg DAILY PO Last administered on 11/19/16 09:21; Start 11/19/16 at 09:00; Stop 11/19/16 at 17:14; Status DC Prednisone (Prednisone) 10 mg DAILY PO Last administered on 11/22/16 08:08; Start 11/19/16 at 09:00 Rivaroxaban (Xarelto) 15 mg DAILY PO Last administered on 11/20/16 07:50; Start 11/19/16 at 09:00; Stop 11/20/16 at 17:18; Status DC Spironolactone (Aldactone) 25 mg DAILY PO Last administered on 11/22/16 08:08; Start 11/19/16 at 09:00 Ascorbic Acid (Vitamin C) 500 mg BID PO Last administered on 11/22/16 19:50; Start 11/19/16 at 09:00 Glyburide (Diabeta) 2.5 mg DAILYWBKFT PO Last administered on 11/22/16 08:08; Start 11/19/16 at 08:00 Losartan Potassium (Cozaar) 100 mg DAILY PO Last administered on 11/22/16 08:07 ; Start 11/19/16 at 09:00 Zinc Sulfate (Orazinc) 220 mg DAILY PO Last administered on 11/22/16 08:07; Start 11/19/16 at 09:00 Info (Anti-Coagulation Monitoring By Pharmacy) 1 each PRN DAILY PRN [facility] SEE COMMENTS; Start 11/19/16 at 04:45; Status Cancel Olanzapine (ZyPREXA ZYDIS) 2.5 mg PRN Q2HR PRN PO PSYCHOSIS; Start 11/19/16 at 05:15 Metoprolol Succinate (Toprol Xl) 50 mg 1X ONCE PO Last administered on 17:33; Start 11/19/16 at 17:15; Stop 11/19/16 at 17:16; Status DC Metoprolol Succinate (Toprol Xl) 100 mg DAILY PO Last administered on 11/22/16 08:07; Start 11/20/16 at 09:00 Acetaminophen (Tylenol) 650 mg PRN Q6HRS PRN PO PAIN / TEMP; Start 11/19/16 at 17:39 Mirtazapine (Remeron) 7.5 mg QHS PO Last administered on 11/20/16 19:54; Start 11/19/16 at 21:00; Stop 11/21/16 at 18:44; Status DC Risperidone (RisperDAL) 0.25 mg QHS PO Last administered on 11/22/16 19:50; Start 11/19/16 at 21:00 Apixaban (Eliquis) 2.5 mg BID PO Last administered on 11/22/16 19:50; Start 11/20/16 at 21:00 Meclizine HCl (Antivert) 25 mg BID PO Last administered on 11/21/16 19:37; Start 11/20/16 at 21:00; Stop 11/22/16 at 19:05; Status DC Ferrous Sulfate (Feosol) 325 mg DAILYWBKFT PO Last administered on 11/22/16 08: 07; Start 11/21/16 at 08:00 Cyanocobalamin (Vitamin B-12) 1,000 mcg DAILY PO Last administered on 11/22/16 08:07; Start 11/21/16 at 09:00 Trazodone HCl (Desyrel) 50 mg QHS PRN PO INSOMNIA, MAY REPEAT X1 Last administered on 11/21/16 23:50; Start 11/21/16 at 18:45 Vitamin D (Vitamin D3) 50,000 unit WEEKLY PO ; Start 11/23/16 at 09:00 Mirtazapine (Remeron) 15 mg QHS PO Last administered on 11/22/16 19:51; Start 11/22/16 at 21:00 Active Scripts Active Reported Zinc Sulfate 220 Mg Tablet 220 Mg PO DAILY Micardis (Telmisartan) 40 Mg Tablet 40 Mg PO BID Aldactone (Spironolactone) 25 Mg Tablet 25 Mg PO DAILY Zoloft (Sertraline Hcl) 50 Mg Tablet 50 Mg PO DAILY Xarelto (Rivaroxaban) 15 Mg Tablet 15 Mg PO DAILY Prednisone 10 Mg Tablet 10 Mg PO DAILY Take 3 tablets by mouth twice a day for 3 days, then take 2 tablets by mouth twice a day for 3 days, then take 1 tablet by mouth twice a day for 3 days, then take 1 tablet by mouth daily x 3 days, then stop. Metoprolol Succinate ( Xl ) (Metoprolol Succinate) 50 Mg Tab.er.24h 50 Mg PO DAILY Glyburide 2.5 Mg Tablet 2.5 Mg PO DAILY Melatonin 3 Mg Tablet 3 Mg PO QHS Vitamin C (Ascorbate Calcium) 500 Mg Tablet 500 Mg PO BID Allopurinol 100 Mg Tablet 100 Mg PO DAILY Tylenol (Acetaminophen) 325 Mg Tablet 325 Mg PO PRN Q4HRS PRN Diagnosis: Problems: (1) Anxiety disorder (2) Psychosis, atypical (3) Impulse control disorder JANEY LAI MD Nov 22, 2016 19:56
--- NOTE | 2016-11-22 20:24 | PN ---
DATE: 11/21/2016 PSYCHIATRIC PROGRESS NOTE This is a late entry for 11/21/2016, covers elements not covered in my initial note of 11/21/2016. SUBJECTIVE: The patient was seen individually the evening of 11/21/2016. The patient slept poorly the night before despite the Remeron 7.5 mg at bedtime. He is taking meclizine 25 mg twice a day and complains of feeling dizzy and drowsy during the day on 11/21/2016. He wonders if it is any of his psychotropics that could be causing this reaction. It is unlikely that it is the Remeron since even with the Remeron he did not sleep very well the night before and it is unlikely to be the very small dosage of Risperdal that he takes at night for the same reason. Drowsiness certainly could happen with the meclizine, but he is wanting one of his psychotropics discontinued to see how he does and we will stop the Remeron and use trazodone p.r.n. as noted below. REVIEW OF SYSTEMS: Ambulation impaired with a walker. No CV, , pulmonary, eye system symptoms on review. MENTAL STATUS EXAM: Reasonably oriented. Speech coherent met with him in his room the evening of 11/21/2016. Abstraction fair, computation reasonable, language function intact. Attention span short. No psychotic symptoms, no hallucinations the previous night. LABORATORY DATA: Reviewed. IMPRESSION: Psychotic disorder, unspecified. 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 Anxiety disorder, unspecified. PLAN: Discontinue the Remeron, continue Risperdal 0.25 mg at bedtime, start trazodone 50 mg at bedtime p.r.n., may repeat x 1 for insomnia. Continue meclizine for now, but the drowsiness could well be contributed by the meclizine and we will reassess in a day or so. MAN Ainsley LAI MD DR: LUZ/nila JOB#: [id number] / [id number]
[2016-11-23 06:08] VITALS: BP 165/81
[2016-11-23] MEDS: SERTRALINE 50 MG TABLET. PO SCH (08:58)
[2016-11-23] MEDS: ZINC SULFATE 220 MG CAPSULE. PO SCH (08:58)
[2016-11-23] MEDS: ASCORBIC ACID 500 MG TABLET PO SCH ×2 (08:58→20:43)
[2016-11-23] MEDS: METOPROLOL SUCC 24HR ER 100 MG TAB.ER.24H. PO SCH (08:58)
[2016-11-23] MEDS: CYANOCOBALAMIN (VITAMIN B-12) 1,000 MCG TABLET. PO SCH (08:58)
[2016-11-23] MEDS: FERROUS SULFATE 325 MG TABLET PO SCH (08:59)
[2016-11-23] MEDS: ALLOPURINOL 100 MG TABLET. PO SCH (08:59)
[2016-11-23] MEDS: glyBURIDE 5 MG TABLET PO SCH (08:59)
[2016-11-23] MEDS: predniSONE 10 MG TABLET PO SCH (08:59)
[2016-11-23] MEDS: APIXABAN 2.5 MG TABLET PO SCH ×2 (09:00→20:43)
[2016-11-23] MEDS: LOSARTAN 50 MG TABLET. PO SCH (09:00)
[2016-11-23] MEDS: CHOLECALCIFEROL (VITAMIN D3) 50,000 UNIT CAPSULE PO SCH (09:02)
[2016-11-23] MEDS: SPIRONOLACTONE 25 MG TABLET PO SCH (09:03)
[2016-11-23 13:25] LABS: BACTERIA,URINE 0 /HPF (0-FEW); BILIRUBIN,URINE NEG (NEG); CLARITY,URINE CLEAR; COLOR,URINE YELLOW; GLUCOSE,URINE NEG (NEG); HYALINE CASTS, URINE OCC /HPF; NITRITE,URINE NEG (NEG); RBC,URINE RARE /HPF (0-2); SQUAMOUS EPITHELIAL CELL,UR OCC /LPF; UROBILINOGEN,URINE 0.2 mg/dL (0.2 mg/dL); WBC,URINE RARE /HPF (0-4)
[2016-11-23 16:15] VITALS: BP 159/82
--- NOTE | 2016-11-23 20:09 | PDOC ---
Exam Reynaldo Demential Exam: Reynaldo Note: Please also refer to the separate dictated note~for this date of service dictated separately.~Patient seen individually. Discussed the patient with Nursing staff reviewed the chart.~Reviewed interim history and current functioning. Reviewed vital signs,~Labs/ Radiology~and current medications noted below. Continue current treatment with the changes noted in the dictated addendum note Assessment: Vital Signs: Vital Signs Date Time Temp Pulse Resp B/P (MAP) Pulse Ox O2 Delivery O2 Flow Rate FiO2 11/23/16 16:15 98.1 67 20 159/82 (107) 99 Room Air I&O Intake and Output 11/23/16 07:00 Intake Total 840 ml Balance 840 ml Intake Oral 840 ml Labs: Laboratory Tests Test 11/23/16 08:55 11/23/16 13:00 Glucose (Fingerstick) 167 mg/dL (70-99) H Urine Collection Type Unknown Urine Color Yellow Urine Clarity Clear Urine pH 5.5 Urine Specific [place] 1.015 Urine Protein Neg (NEG-TRACE) Urine Glucose (UA) Neg mg/dL (NEG) Urine Ketones (Stick) Neg mg/dL (NEG) Urine Blood Neg (NEG) Urine Nitrite Neg (NEG) Urine Bilirubin Neg (NEG) Urine Urobilinogen Dipstick 0.2 mg/dL (0.2 mg/dL) Urine Leukocyte Esterase Neg (NEG) Urine RBC Rare /HPF (0-2) Urine WBC Rare /HPF (0-4) Urine Squamous Epithelial Cells Occ /LPF Urine Bacteria 0 /HPF (0-FEW) Urine Hyaline Casts Occ /HPF Current Medications: Meds: Current Medications Acetaminophen (Tylenol) 650 mg PRN Q6HRS PRN PO PAIN / TEMP; Start 11/19/16 at 04:45; Stop 11/19/16 at 17:39; Status DC Multi-Ingredient Ointment (Analgesic [place]) 1 rajesh PRN QID PRN TP MUSCLE PAIN; Start 11/19/16 at 04:45 Al Hydroxide/Mg Hydroxide (Mylanta Plus Xs) 15 ml PRN AFTMEALHC PRN PO DYSPEPSIA; Start 11/19/16 at 04:45 Magnesium Hydroxide (Milk Of Magnesia) 2,400 mg PRN QHS PRN PO CONSTIPATION Last administered on 11/20/16t 21:01; Start 11/19/16 at 04:45 Sertraline HCl (Zoloft) 50 mg DAILY PO Last administered on 11/23/16 08:58; Start 11/19/16 at 09:00 Melatonin 3 mg QHS PO Last administered on 11/22/16 19:50; Start 11/19/16 at 21: 00 Allopurinol (Zyloprim) 100 mg DAILY PO Last administered on 11/23/16 08:59; Start 11/19/16 at 09:00 Metoprolol Succinate (Toprol Xl) 50 mg DAILY PO Last administered on 11/19/16 09:21; Start 11/19/16 at 09:00; Stop 11/19/16 at 17:14; Status DC Prednisone (Prednisone) 10 mg DAILY PO Last administered on 11/23/16 08:59; Start 11/19/16 at 09:00 Rivaroxaban (Xarelto) 15 mg DAILY PO Last administered on 11/20/16 07:50; Start 11/19/16 at 09:00; Stop 11/20/16 at 17:18; Status DC Spironolactone (Aldactone) 25 mg DAILY PO Last administered on 11/23/16 09:03; Start 11/19/16 at 09:00 Ascorbic Acid (Vitamin C) 500 mg BID PO Last administered on 11/23/16 08:58; Start 11/19/16 at 09:00 Glyburide (Diabeta) 2.5 mg DAILYWBKFT PO Last administered on 11/23/16 08:59; Start 11/19/16 at 08:00 Losartan Potassium (Cozaar) 100 mg DAILY PO Last administered on 11/23/16 09:00 ; Start 11/19/16 at 09:00 Zinc Sulfate (Orazinc) 220 mg DAILY PO Last administered on 11/23/16 08:58; Start 11/19/16 at 09:00 Info (Anti-Coagulation Monitoring By Pharmacy) 1 each PRN DAILY PRN [facility] SEE COMMENTS; Start 11/19/16 at 04:45; Status Cancel Olanzapine (ZyPREXA ZYDIS) 2.5 mg PRN Q2HR PRN PO PSYCHOSIS; Start 11/19/16 at 05:15 Metoprolol Succinate (Toprol Xl) 50 mg 1X ONCE PO Last administered on 17:33; Start 11/19/16 at 17:15; Stop 11/19/16 at 17:16; Status DC Metoprolol Succinate (Toprol Xl) 100 mg DAILY PO Last administered on 11/23/16 08:58; Start 11/20/16 at 09:00 Acetaminophen (Tylenol) 650 mg PRN Q6HRS PRN PO PAIN / TEMP; Start 11/19/16 at 17:39 Mirtazapine (Remeron) 7.5 mg QHS PO Last administered on 11/20/16 19:54; Start 11/19/16 at 21:00; Stop 11/21/16 at 18:44; Status DC Risperidone (RisperDAL) 0.25 mg QHS PO Last administered on 11/22/16 19:50; Start 11/19/16 at 21:00 Apixaban (Eliquis) 2.5 mg BID PO Last administered on 11/23/16 09:00; Start 11/20/16 at 21:00 Meclizine HCl (Antivert) 25 mg BID PO Last administered on 11/21/16 19:37; Start 11/20/16 at 21:00; Stop 11/22/16 at 19:05; Status DC Ferrous Sulfate (Feosol) 325 mg DAILYWBKFT PO Last administered on 11/23/16 08: 59; Start 11/21/16 at 08:00 Cyanocobalamin (Vitamin B-12) 1,000 mcg DAILY PO Last administered on 11/23/16 08:58; Start 11/21/16 at 09:00 Trazodone HCl (Desyrel) 50 mg QHS PRN PO INSOMNIA, MAY REPEAT X1 Last administered on 11/21/16 23:50; Start 11/21/16 at 18:45 Vitamin D (Vitamin D3) 50,000 unit WEEKLY PO Last administered on 11/23/16 09: 02; Start 11/23/16 at 09:00 Mirtazapine (Remeron) 15 mg QHS PO Last administered on 11/22/16 19:51; Start 11/22/16 at 21:00 Active Scripts Active Reported Zinc Sulfate 220 Mg Tablet 220 Mg PO DAILY Micardis (Telmisartan) 40 Mg Tablet 40 Mg PO BID Aldactone (Spironolactone) 25 Mg Tablet 25 Mg PO DAILY Zoloft (Sertraline Hcl) 50 Mg Tablet 50 Mg PO DAILY Xarelto (Rivaroxaban) 15 Mg Tablet 15 Mg PO DAILY Prednisone 10 Mg Tablet 10 Mg PO DAILY Take 3 tablets by mouth twice a day for 3 days, then take 2 tablets by mouth twice a day for 3 days, then take 1 tablet by mouth twice a day for 3 days, then take 1 tablet by mouth daily x 3 days, then stop. Metoprolol Succinate ( Xl ) (Metoprolol Succinate) 50 Mg Tab.er.24h 50 Mg PO DAILY Glyburide 2.5 Mg Tablet 2.5 Mg PO DAILY Melatonin 3 Mg Tablet 3 Mg PO QHS Vitamin C (Ascorbate Calcium) 500 Mg Tablet 500 Mg PO BID Allopurinol 100 Mg Tablet 100 Mg PO DAILY Tylenol (Acetaminophen) 325 Mg Tablet 325 Mg PO PRN Q4HRS PRN Diagnosis: Problems: (1) Anxiety disorder (2) Psychosis, atypical (3) Impulse control disorder JANEY LAI MD Nov 23, 2016 20:09
[2016-11-23] MEDS: traZODone 50 MG TABLET. PO PRN (20:43)
[2016-11-23] MEDS: MIRTAZAPINE 15 MG TABLET PO SCH (20:43)
[2016-11-23] MEDS: MELATONIN 3 MG TABLET PO SCH (20:43)
[2016-11-23] MEDS: risperiDONE 0.25 MG TABLET. PO SCH (20:43)
--- NOTE | 2016-11-24 01:26 | PN ---
DATE: 11/22/2016 PSYCHIATRIC PROGRESS NOTE This is a late entry for 11/22/2016, covers elements not covered in my initial note. SUBJECTIVE: The patient was seen individually the evening of 11/22/2016. He is sleeping poorly at night. Fell at 2:20 in the morning, as he was trying to get to the bathroom and stood up to do this. Blood pressure has been slightly elevated, we will defer to Dr. Singleton/Dr. Antoine. REVIEW OF SYSTEMS: Still complains of some drowsiness during the day. Meclizine has been discontinued since there is a question whether this could be contributing to it. REVIEW OF SYSTEMS: Ambulation impaired with a walker. No CV, , pulmonary, eye, ENT system symptoms on review. MENTAL STATUS EXAM: Reasonably oriented. Speech is coherent, abstraction fair, computation impaired, language function intact. Attention span short. Gait slightly unsteady with walker. LABORATORY DATA: Reviewed. 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 PLAN: Restart Remeron 15 mg at bedtime to help with his insomnia. Continue trazodone 50 mg at bedtime and may repeat x 1 p.r.n. for insomnia, melatonin 3 mg at bedtime, Zoloft 50 mg a day, Risperdal 0.25 mg at bedtime, and Zyprexa p.r.n. He has had no overt hallucinations the previous evening. JANEY LAI MD DR: LUZ/nila JOB#: [id number] / [id number]
[2016-11-24 05:51] VITALS: BP 168/82
[2016-11-24] MEDS: LOSARTAN 50 MG TABLET. PO SCH (08:27)
[2016-11-24] MEDS: CYANOCOBALAMIN (VITAMIN B-12) 1,000 MCG TABLET. PO SCH (08:27)
[2016-11-24] MEDS: ASCORBIC ACID 500 MG TABLET PO SCH ×2 (08:27→19:35)
[2016-11-24] MEDS: SERTRALINE 50 MG TABLET. PO SCH (08:27)
[2016-11-24] MEDS: FERROUS SULFATE 325 MG TABLET PO SCH (08:27)
[2016-11-24] MEDS: predniSONE 10 MG TABLET PO SCH (08:28)
[2016-11-24] MEDS: glyBURIDE 5 MG TABLET PO SCH (08:28)
[2016-11-24] MEDS: APIXABAN 2.5 MG TABLET PO SCH ×2 (08:28→19:36)
[2016-11-24] MEDS: METOPROLOL SUCC 24HR ER 100 MG TAB.ER.24H. PO SCH (08:28)
[2016-11-24] MEDS: ZINC SULFATE 220 MG CAPSULE. PO SCH (08:28)
[2016-11-24] MEDS: ALLOPURINOL 100 MG TABLET. PO SCH (08:28)
[2016-11-24] MEDS: SPIRONOLACTONE 25 MG TABLET PO SCH (08:28)
[2016-11-24 16:06] VITALS: BP 178/83
[2016-11-24] MEDS: risperiDONE 0.25 MG TABLET. PO SCH (19:35)
[2016-11-24] MEDS: MIRTAZAPINE 15 MG TABLET PO SCH (19:36)
[2016-11-24] MEDS: traZODone 50 MG TABLET. PO PRN (19:36)
[2016-11-24] MEDS: MELATONIN 3 MG TABLET PO SCH (19:36)
--- NOTE | 2016-11-24 19:58 | PDOC ---
Exam Reynaldo Demential Exam: Reynaldo Note: Please also refer to the separate dictated note~for this date of service dictated separately.~Patient seen individually. Discussed the patient with Nursing staff reviewed the chart.~Reviewed interim history and current functioning. Reviewed vital signs,~Labs/ Radiology~and current medications noted below. Continue current treatment with the changes noted in the dictated addendum note Assessment: Vital Signs: Vital Signs Date Time Temp Pulse Resp B/P (MAP) Pulse Ox O2 Delivery O2 Flow Rate FiO2 11/24/16 16:06 97.6 82 16 178/83 (114) 99 11/23/16 16:15 Room Air I&O Intake and Output 11/24/16 07:00 Intake Total 1080 ml Balance 1080 ml Intake Oral 1080 ml Labs: Laboratory Tests Test 11/24/16 08:22 Glucose (Fingerstick) 93 mg/dL (70-99) Current Medications: Meds: Current Medications Acetaminophen (Tylenol) 650 mg PRN Q6HRS PRN PO PAIN / TEMP; Start 11/19/16 at 04:45; Stop 11/19/16 at 17:39; Status DC Multi-Ingredient Ointment (Analgesic [place]) 1 rajesh PRN QID PRN TP MUSCLE PAIN; Start 11/19/16 at 04:45 Al Hydroxide/Mg Hydroxide (Mylanta Plus Xs) 15 ml PRN AFTMEALHC PRN PO DYSPEPSIA; Start 11/19/16 at 04:45 Magnesium Hydroxide (Milk Of Magnesia) 2,400 mg PRN QHS PRN PO CONSTIPATION Last administered on 11/20/16 21:01; Start 11/19/16 at 04:45 Sertraline HCl (Zoloft) 50 mg DAILY PO Last administered on 11/24/16 08:27; Start 11/19/16 at 09:00 Melatonin 3 mg QHS PO Last administered on 11/24/16 19:36; Start 11/19/16 at 21: 00 Allopurinol (Zyloprim) 100 mg DAILY PO Last administered on 11/24/16 08:28; Start 11/19/16 at 09:00 Metoprolol Succinate (Toprol Xl) 50 mg DAILY PO Last administered on 11/19/16 09:21; Start 11/19/16 at 09:00; Stop 11/19/16 at 17:14; Status DC Prednisone (Prednisone) 10 mg DAILY PO Last administered on 11/24/16 08:28; Start 11/19/16 at 09:00 Rivaroxaban (Xarelto) 15 mg DAILY PO Last administered on 11/20/16 07:50; Start 11/19/16 at 09:00; Stop 11/20/16 at 17:18; Status DC Spironolactone (Aldactone) 25 mg DAILY PO Last administered on 11/24/16 08:28; Start 11/19/16 at 09:00 Ascorbic Acid (Vitamin C) 500 mg BID PO Last administered on 11/24/16 19:35; Start 11/19/16 at 09:00 Glyburide (Diabeta) 2.5 mg DAILYWBKFT PO Last administered on 11/24/16 08:28; Start 11/19/16 at 08:00 Losartan Potassium (Cozaar) 100 mg DAILY PO Last administered on 11/24/16 08:27 ; Start 11/19/16 at 09:00 Zinc Sulfate (Orazinc) 220 mg DAILY PO Last administered on 11/24/16 08:28; Start 11/19/16 at 09:00 Info (Anti-Coagulation Monitoring By Pharmacy) 1 each PRN DAILY PRN [facility] SEE COMMENTS; Start 11/19/16 at 04:45; Status Cancel Olanzapine (ZyPREXA ZYDIS) 2.5 mg PRN Q2HR PRN PO PSYCHOSIS; Start 11/19/16 at 05:15 Metoprolol Succinate (Toprol Xl) 50 mg 1X ONCE PO Last administered on 17:33; Start 11/19/16 at 17:15; Stop 11/19/16 at 17:16; Status DC Metoprolol Succinate (Toprol Xl) 100 mg DAILY PO Last administered on 11/24/16 08:28; Start 11/20/16 at 09:00 Acetaminophen (Tylenol) 650 mg PRN Q6HRS PRN PO PAIN / TEMP; Start 11/19/16 at 17:39 Mirtazapine (Remeron) 7.5 mg QHS PO Last administered on 11/20/16 19:54; Start 11/19/16 at 21:00; Stop 11/21/16 at 18:44; Status DC Risperidone (RisperDAL) 0.25 mg QHS PO Last administered on 11/23/16 20:43; Start 11/19/16 at 21:00; Stop 11/24/16 at 18:32; Status DC Apixaban (Eliquis) 2.5 mg BID PO Last administered on 11/24/16 19:36; Start 11/20/16 at 21:00 Meclizine HCl (Antivert) 25 mg BID PO Last administered on 11/21/16 19:37; Start 11/20/16 at 21:00; Stop 11/22/16 at 19:05; Status DC Ferrous Sulfate (Feosol) 325 mg DAILYWBKFT PO Last administered on 11/24/16 08: 27; Start 11/21/16 at 08:00 Cyanocobalamin (Vitamin B-12) 1,000 mcg DAILY PO Last administered on 11/24/16 08:27; Start 11/21/16 at 09:00 Trazodone HCl (Desyrel) 50 mg QHS PRN PO INSOMNIA, MAY REPEAT X1 Last administered on 11/24/16 19:36; Start 11/21/16 at 18:45 Vitamin D (Vitamin D3) 50,000 unit WEEKLY PO Last administered on 11/23/16 09: 02; Start 11/23/16 at 09:00 Mirtazapine (Remeron) 15 mg QHS PO Last administered on 11/24/16 19:36; Start 11/22/16 at 21:00 Risperidone (RisperDAL) 0.375 mg DAILY@1900 PO Last administered on 11/24/16 19 :35; Start 11/24/16 at 19:00 Active Scripts Active Reported Zinc Sulfate 220 Mg Tablet 220 Mg PO DAILY Micardis (Telmisartan) 40 Mg Tablet 40 Mg PO BID Aldactone (Spironolactone) 25 Mg Tablet 25 Mg PO DAILY Zoloft (Sertraline Hcl) 50 Mg Tablet 50 Mg PO DAILY Xarelto (Rivaroxaban) 15 Mg Tablet 15 Mg PO DAILY Prednisone 10 Mg Tablet 10 Mg PO DAILY Take 3 tablets by mouth twice a day for 3 days, then take 2 tablets by mouth twice a day for 3 days, then take 1 tablet by mouth twice a day for 3 days, then take 1 tablet by mouth daily x 3 days, then stop. Metoprolol Succinate ( Xl ) (Metoprolol Succinate) 50 Mg Tab.er.24h 50 Mg PO DAILY Glyburide 2.5 Mg Tablet 2.5 Mg PO DAILY Melatonin 3 Mg Tablet 3 Mg PO QHS Vitamin C (Ascorbate Calcium) 500 Mg Tablet 500 Mg PO BID Allopurinol 100 Mg Tablet 100 Mg PO DAILY Tylenol (Acetaminophen) 325 Mg Tablet 325 Mg PO PRN Q4HRS PRN Diagnosis: Problems: (1) Anxiety disorder (2) Psychosis, atypical (3) Impulse control disorder JANEY LAI MD Nov 24, 2016 19:58
--- NOTE | 2016-11-24 23:43 | PN ---
DATE: 11/23/2016 This late entry 11/23/2016 covers the elements that are covered in my initial note of 11/23/2016. SUBJECTIVE: The patient slept 8-1/4 hours previous evening, which is quite an improvement for him. UA is negative. He was somewhat delusional previous evening; thought his son had bought in $800 glasses which were misplaced here. Nursing staff to check with the family on this. REVIEW OF SYSTEMS: Still complains of some dizziness ambulates with a walker. No CV, , pulmonary, eye system symptoms on review. MENTAL STATUS EXAM: Reasonably oriented. Speech is coherent, has some latency. Abstraction fair, computation impaired, language function intact, attention span short. Mood and affect overall showing improvement. LABORATORY DATA: Reviewed. No clear psychotic symptoms other than as noted above. IMPRESSION: Unchanged from initial note. PLAN: Continue Risperdal 0.25 mg at bedtime, Remeron 15 mg at bedtime, Zoloft 50 mg a day, melatonin 3 mg at bedtime, trazodone p.r.n., Zyprexa p.r.n. Adjust further as clinically indicated. MAN Ainsley LAI MD DR: LUZ/nila JOB#: [id number] / [id number]
[2016-11-25 06:09] VITALS: BP 136/86
[2016-11-25] MEDS: SERTRALINE 50 MG TABLET. PO SCH (08:30)
[2016-11-25] MEDS: SPIRONOLACTONE 25 MG TABLET PO SCH (08:30)
[2016-11-25] MEDS: predniSONE 10 MG TABLET PO SCH (08:30)
[2016-11-25] MEDS: APIXABAN 2.5 MG TABLET PO SCH ×2 (08:31→20:48)
[2016-11-25] MEDS: CYANOCOBALAMIN (VITAMIN B-12) 1,000 MCG TABLET. PO SCH (08:31)
[2016-11-25] MEDS: LOSARTAN 50 MG TABLET. PO SCH (08:31)
[2016-11-25] MEDS: METOPROLOL SUCC 24HR ER 100 MG TAB.ER.24H. PO SCH (08:31)
[2016-11-25] MEDS: ZINC SULFATE 220 MG CAPSULE. PO SCH (08:32)
[2016-11-25] MEDS: ASCORBIC ACID 500 MG TABLET PO SCH ×2 (08:32→19:47)
[2016-11-25] MEDS: ALLOPURINOL 100 MG TABLET. PO SCH (08:32)
[2016-11-25] MEDS: FERROUS SULFATE 325 MG TABLET PO SCH (08:32)
[2016-11-25] MEDS: glyBURIDE 5 MG TABLET PO SCH (08:32)
[2016-11-25] MEDS: MAGNESIUM HYDROXIDE 2,400 MG/30 ML ORAL.SUSP. PO PRN (08:53)
[2016-11-25 09:46] LABS: BASO # 0.1 x10^3/uL (0.0-0.2); BASO % 1 % (0-3); EOS # 0.1 x10^3/uL (0.0-0.7); EOS % 2 % (0-3); HEMATOCRIT 37.2 % (39.0-53.0); HEMOGLOBIN 12.1 g/dL (13.0-17.5); LYMPH # 1.2 x10^3/uL (1.0-4.8); LYMPH % 21 % (24-48); MEAN CORPUSCULAR HEMOGLOBIN 30 pg (25-35); MEAN CORPUSCULAR HGB CONC 33 g/dL (31-37); MEAN CORPUSCULAR VOLUME 92 fL (79-100); MONO # 0.4 x10^3/uL (0.0-1.1); MONO % 7 % (0-9); NEUT # 4.2 x10^3uL (1.8-7.7); NEUT % 70 % (31-73); PLATELET COUNT 166 x10^3/uL (140-400); RED BLOOD COUNT 4.04 x10^6/uL (4.30-5.70)
[2016-11-25 09:52] LABS: ALBUMIN 3.3 g/dL (3.4-5.0); ALBUMIN/GLOBULIN RATIO 1.1 (1.0-1.7); CALCIUM 9.6 mg/dL (8.5-10.1); CREATININE 1.7 mg/dL (0.7-1.3); GFR 38.7; MAGNESIUM 1.7 mg/dL (1.8-2.4); POTASSIUM 3.9 mmol/L (3.5-5.1); TOTAL BILIRUBIN 0.4 mg/dL (0.2-1.0); TOTAL PROTEIN 6.2 g/dL (6.4-8.2)
[2016-11-25 16:18] VITALS: BP 164/82
[2016-11-25] MEDS: risperiDONE 0.25 MG TABLET. PO SCH (19:41)
[2016-11-25] MEDS: traZODone 50 MG TABLET. PO PRN (19:44)
[2016-11-25] MEDS: MELATONIN 3 MG TABLET PO SCH (19:45)
--- NOTE | 2016-11-25 19:54 | PDOC ---
Exam Reynaldo Demential Exam: Reynaldo Note: Please also refer to the separate dictated note~for this date of service dictated separately.~Patient seen individually. Discussed the patient with Nursing staff reviewed the chart.~Reviewed interim history and current functioning. Reviewed vital signs,~Labs/ Radiology~and current medications noted below. Continue current treatment with the changes noted in the dictated addendum note Assessment: Vital Signs: Vital Signs Date Time Temp Pulse Resp B/P (MAP) Pulse Ox O2 Delivery O2 Flow Rate FiO2 11/25/16 16:18 97.9 87 18 164/82 (109) 99 11/23/16 16:15 Room Air I&O Intake and Output 11/25/16 07:00 Intake Total 900 ml Balance 900 ml Intake Oral 900 ml # Voids 1 Labs: Laboratory Tests Test 11/25/16 07:19 11/25/16 09:28 Glucose (Fingerstick) 84 mg/dL (70-99) White Blood Count 6.0 x10^3/uL (4.0-11.0) Red Blood Count 4.04 x10^6/uL (4.30-5.70) L Hemoglobin 12.1 g/dL (13.0-17.5) L Hematocrit 37.2 % (39.0-53.0) L Mean Corpuscular Volume 92 fL (79-100) Mean Corpuscular Hemoglobin 30 pg (25-35) Mean Corpuscular Hemoglobin Concent 33 g/dL (31-37) Red Cell Distribution Width 14.0 % (11.5-14.5) Platelet Count 166 x10^3/uL (140-400) Neutrophils (%) (Auto) 70 % (31-73) Lymphocytes (%) (Auto) 21 % (24-48) L Monocytes (%) (Auto) 7 % (0-9) Eosinophils (%) (Auto) 2 % (0-3) Basophils (%) (Auto) 1 % (0-3) Neutrophils # (Auto) 4.2 x10^3uL (1.8-7.7) Lymphocytes # (Auto) 1.2 x10^3/uL (1.0-4.8) Monocytes # (Auto) 0.4 x10^3/uL (0.0-1.1) Eosinophils # (Auto) 0.1 x10^3/uL (0.0-0.7) Basophils # (Auto) 0.1 x10^3/uL (0.0-0.2) Sodium Level 144 mmol/L (136-145) Potassium Level 3.9 mmol/L (3.5-5.1) Chloride Level 109 mmol/L (98-107) H Carbon Dioxide Level 30 mmol/L (21-32) Anion Gap 5 (6-14) L Blood Urea Nitrogen 26 mg/dL (8-26) Creatinine 1.7 mg/dL (0.7-1.3) H Estimated GFR (Cockcroft-Gault) 38.7 BUN/Creatinine Ratio 15 (6-20) Glucose Level 129 mg/dL (70-99) H Calcium Level 9.6 mg/dL (8.5-10.1) Magnesium Level 1.7 mg/dL (1.8-2.4) L Total Bilirubin 0.4 mg/dL (0.2-1.0) Aspartate Amino Transferase (AST) 10 U/L (15-37) L Alanine Aminotransferase (ALT) 25 U/L (16-63) Alkaline Phosphatase 60 U/L (46-116) Total Protein 6.2 g/dL (6.4-8.2) L Albumin 3.3 g/dL (3.4-5.0) L Albumin/Globulin Ratio 1.1 (1.0-1.7) Current Medications: Meds: Current Medications Acetaminophen (Tylenol) 650 mg PRN Q6HRS PRN PO PAIN / TEMP; Start 11/19/16 at 04:45; Stop 11/19/16 at 17:39; Status DC Multi-Ingredient Ointment (Analgesic [place]) 1 rajesh PRN QID PRN TP MUSCLE PAIN; Start 11/19/16 at 04:45 Al Hydroxide/Mg Hydroxide (Mylanta Plus Xs) 15 ml PRN AFTMEALHC PRN PO DYSPEPSIA; Start 11/19/16 at 04:45 Magnesium Hydroxide (Milk Of Magnesia) 2,400 mg PRN QHS PRN PO CONSTIPATION Last administered on 11/25/16 08:53; Start 11/19/16 at 04:45 Sertraline HCl (Zoloft) 50 mg DAILY PO Last administered on 11/25/16 08:30; Start 11/19/16 at 09:00 Melatonin 3 mg QHS PO Last administered on 11/25/16 19:45; Start 11/19/16 at 21: 00 Allopurinol (Zyloprim) 100 mg DAILY PO Last administered on 11/25/16 08:32; Start 11/19/16 at 09:00 Metoprolol Succinate (Toprol Xl) 50 mg DAILY PO Last administered on 11/19/16 09:21; Start 11/19/16 at 09:00; Stop 11/19/16 at 17:14; Status DC Prednisone (Prednisone) 10 mg DAILY PO Last administered on 11/25/16 08:30; Start 11/19/16 at 09:00 Rivaroxaban (Xarelto) 15 mg DAILY PO Last administered on 11/20/16 07:50; Start 11/19/16 at 09:00; Stop 11/20/16 at 17:18; Status DC Spironolactone (Aldactone) 25 mg DAILY PO Last administered on 11/25/16 08:30; Start 11/19/16 at 09:00 Ascorbic Acid (Vitamin C) 500 mg BID PO Last administered on 11/25/16 19:47; Start 11/19/16 at 09:00 Glyburide (Diabeta) 2.5 mg DAILYWBKFT PO Last administered on 11/25/16 08:32; Start 11/19/16 at 08:00 Losartan Potassium (Cozaar) 100 mg DAILY PO Last administered on 11/25/16 08:31 ; Start 11/19/16 at 09:00 Zinc Sulfate (Orazinc) 220 mg DAILY PO Last administered on 11/25/16 08:32; Start 11/19/16 at 09:00 Info (Anti-Coagulation Monitoring By Pharmacy) 1 each PRN DAILY PRN [facility] SEE COMMENTS; Start 11/19/16 at 04:45; Status Cancel Olanzapine (ZyPREXA ZYDIS) 2.5 mg PRN Q2HR PRN PO PSYCHOSIS; Start 11/19/16 at 05:15 Metoprolol Succinate (Toprol Xl) 50 mg 1X ONCE PO Last administered on 17:33; Start 11/19/16 at 17:15; Stop 11/19/16 at 17:16; Status DC Metoprolol Succinate (Toprol Xl) 100 mg DAILY PO Last administered on 11/25/16 08:31; Start 11/20/16 at 09:00 Acetaminophen (Tylenol) 650 mg PRN Q6HRS PRN PO PAIN / TEMP; Start 11/19/16 at 17:39 Mirtazapine (Remeron) 7.5 mg QHS PO Last administered on 11/20/16 19:54; Start 11/19/16 at 21:00; Stop 11/21/16 at 18:44; Status DC Risperidone (RisperDAL) 0.25 mg QHS PO Last administered on 11/23/16 20:43; Start 11/19/16 at 21:00; Stop 11/24/16 at 18:32; Status DC Apixaban (Eliquis) 2.5 mg BID PO Last administered on 11/25/16 08:31; Start 11/20/16 at 21:00 Meclizine HCl (Antivert) 25 mg BID PO Last administered on 11/21/16 19:37; Start 11/20/16 at 21:00; Stop 11/22/16 at 19:05; Status DC Ferrous Sulfate (Feosol) 325 mg DAILYWBKFT PO Last administered on 11/25/16 08: 32; Start 11/21/16 at 08:00 Cyanocobalamin (Vitamin B-12) 1,000 mcg DAILY PO Last administered on 11/25/16 08:31; Start 11/21/16 at 09:00 Trazodone HCl (Desyrel) 50 mg QHS PRN PO INSOMNIA, MAY REPEAT X1 Last administered on 11/25/16 19:44; Start 11/21/16 at 18:45 Vitamin D (Vitamin D3) 50,000 unit WEEKLY PO Last administered on 11/23/16 09: 02; Start 11/23/16 at 09:00 Mirtazapine (Remeron) 15 mg QHS PO Last administered on 11/24/16 19:36; Start 11/22/16 at 21:00 Risperidone (RisperDAL) 0.375 mg DAILY@1900 PO Last administered on 11/25/16 19 :41; Start 11/24/16 at 19:00 Active Scripts Active Reported Zinc Sulfate 220 Mg Tablet 220 Mg PO DAILY Micardis (Telmisartan) 40 Mg Tablet 40 Mg PO BID Aldactone (Spironolactone) 25 Mg Tablet 25 Mg PO DAILY Zoloft (Sertraline Hcl) 50 Mg Tablet 50 Mg PO DAILY Xarelto (Rivaroxaban) 15 Mg Tablet 15 Mg PO DAILY Prednisone 10 Mg Tablet 10 Mg PO DAILY Take 3 tablets by mouth twice a day for 3 days, then take 2 tablets by mouth twice a day for 3 days, then take 1 tablet by mouth twice a day for 3 days, then take 1 tablet by mouth daily x 3 days, then stop. Metoprolol Succinate ( Xl ) (Metoprolol Succinate) 50 Mg Tab.er.24h 50 Mg PO DAILY Glyburide 2.5 Mg Tablet 2.5 Mg PO DAILY Melatonin 3 Mg Tablet 3 Mg PO QHS Vitamin C (Ascorbate Calcium) 500 Mg Tablet 500 Mg PO BID Allopurinol 100 Mg Tablet 100 Mg PO DAILY Tylenol (Acetaminophen) 325 Mg Tablet 325 Mg PO PRN Q4HRS PRN Diagnosis: Problems: (1) Anxiety disorder (2) Psychosis, atypical (3) Impulse control disorder JANEY LAI MD Nov 25, 2016 19:54
[2016-11-25] MEDS: MIRTAZAPINE 15 MG TABLET PO SCH (20:49)
--- NOTE | 2016-11-26 01:02 | PN ---
DATE: 11/24/2016 This is a late entry for 11/24/2016 and covers elements not covered in my initial note. I met with the patient evening of 11/24/2016. The previous evening per nursing report, the patient was hallucinating, saw a [place] dog in his room but none during the day. Per nursing staff, he gets a little paranoid about his as well, which was not evident to me initially. REVIEW OF SYSTEMS: No CV, , pulmonary, eye, ENT system symptoms on review. Gait unsteady, complains of some dizziness. MENTAL STATUS EXAM: Reasonably oriented. Speech is coherent, anxious. Abstraction fair, computation impaired, language function intact, attention span short. Mood and affect overall improved, still anxious, slightly labile at times. LABORATORY DATA: Reviewed. IMPRESSION: Unchanged from initial note. 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 PLAN: The patient is currently on Risperdal 0.25 mg at bedtime. We will increase this to 0.375 mg at 7 p.m. to cover for the evening hallucinations. Maintain melatonin, Zoloft, Remeron, along with trazodone and Zyprexa p.r.n. Adjust as clinically indicated. JANEY LAI MD DR: LUZ/nila JOB#: [id number] / [id number]
[2016-11-26 06:55] VITALS: BP 144/91
[2016-11-26] MEDS: ALLOPURINOL 100 MG TABLET. PO SCH (09:00)
[2016-11-26] MEDS: predniSONE 10 MG TABLET PO SCH (09:16)
[2016-11-26] MEDS: SPIRONOLACTONE 25 MG TABLET PO SCH (09:16)
[2016-11-26] MEDS: LOSARTAN 50 MG TABLET. PO SCH (09:16)
[2016-11-26] MEDS: CYANOCOBALAMIN (VITAMIN B-12) 1,000 MCG TABLET. PO SCH (09:17)
[2016-11-26] MEDS: ZINC SULFATE 220 MG CAPSULE. PO SCH (09:17)
[2016-11-26] MEDS: glyBURIDE 5 MG TABLET PO SCH (09:17)
[2016-11-26] MEDS: METOPROLOL SUCC 24HR ER 100 MG TAB.ER.24H. PO SCH (09:17)
[2016-11-26] MEDS: SERTRALINE 50 MG TABLET. PO SCH (09:17)
[2016-11-26] MEDS: ASCORBIC ACID 500 MG TABLET PO SCH ×2 (09:17→20:34)
[2016-11-26] MEDS: APIXABAN 2.5 MG TABLET PO SCH ×2 (09:18→20:34)
[2016-11-26] MEDS: FERROUS SULFATE 325 MG TABLET PO SCH (09:18)
[2016-11-26 16:33] VITALS: BP 152/84
[2016-11-26] MEDS ORDERED: risperiDONE 0.25 MG TABLET. PO SCH (19:00)
--- NOTE | 2016-11-26 19:55 | PDOC ---
Exam Reynaldo Demential Exam: Reynaldo Note: Please also refer to the separate dictated note~for this date of service dictated separately.~Patient seen individually. Discussed the patient with Nursing staff reviewed the chart.~Reviewed interim history and current functioning. Reviewed vital signs,~Labs/ Radiology~and current medications noted below. Continue current treatment with the changes noted in the dictated addendum note Assessment: Vital Signs: Vital Signs Date Time Temp Pulse Resp B/P (MAP) Pulse Ox O2 Delivery O2 Flow Rate FiO2 11/26/16 16:33 97.7 81 20 152/84 (106) 99 Room Air I&O Intake and Output 11/26/16 07:00 Intake Total 1440 ml Balance 1440 ml Intake Oral 1440 ml # Voids 1 # Bowel Movements 1 Labs: Laboratory Tests Test 11/26/16 07:22 Glucose (Fingerstick) 94 mg/dL (70-99) Current Medications: Meds: Current Medications Acetaminophen (Tylenol) 650 mg PRN Q6HRS PRN PO PAIN / TEMP; Start 11/19/16 at 04:45; Stop 11/19/16 at 17:39; Status DC Multi-Ingredient Ointment (Analgesic [place]) 1 rajesh PRN QID PRN TP MUSCLE PAIN; Start 11/19/16 at 04:45 Al Hydroxide/Mg Hydroxide (Mylanta Plus Xs) 15 ml PRN AFTMEALHC PRN PO DYSPEPSIA; Start 11/19/16 at 04:45 Magnesium Hydroxide (Milk Of Magnesia) 2,400 mg PRN QHS PRN PO CONSTIPATION Last administered on 11/25/16 08:53; Start 11/19/16 at 04:45 Sertraline HCl (Zoloft) 50 mg DAILY PO Last administered on 11/26/16 09:17; Start 11/19/16 at 09:00 Melatonin 3 mg QHS PO Last administered on 11/25/16 19:45; Start 11/19/16 at 21: 00 Allopurinol (Zyloprim) 100 mg DAILY PO Last administered on 11/26/16 09:00; Start 11/19/16 at 09:00 Metoprolol Succinate (Toprol Xl) 50 mg DAILY PO Last administered on 11/19/16 09:21; Start 11/19/16 at 09:00; Stop 11/19/16 at 17:14; Status DC Prednisone (Prednisone) 10 mg DAILY PO Last administered on 11/26/16 09:16; Start 11/19/16 at 09:00 Rivaroxaban (Xarelto) 15 mg DAILY PO Last administered on 11/20/16 07:50; Start 11/19/16 at 09:00; Stop 11/20/16 at 17:18; Status DC Spironolactone (Aldactone) 25 mg DAILY PO Last administered on 11/26/16 09:16 ; Start 11/19/16 at 09:00 Ascorbic Acid (Vitamin C) 500 mg BID PO Last administered on 11/26/16 09:17; Start 11/19/16 at 09:00 Glyburide (Diabeta) 2.5 mg DAILYWBKFT PO Last administered on 11/26/16 09:17; Start 11/19/16 at 08:00 Losartan Potassium (Cozaar) 100 mg DAILY PO Last administered on 11/26/16 09: 16; Start 11/19/16 at 09:00 Zinc Sulfate (Orazinc) 220 mg DAILY PO Last administered on 11/26/16 09:17; Start 11/19/16 at 09:00 Info (Anti-Coagulation Monitoring By Pharmacy) 1 each PRN DAILY PRN MC SEE COMMENTS; Start 11/19/16 at 04:45; Status Cancel Olanzapine (ZyPREXA ZYDIS) 2.5 mg PRN Q2HR PRN PO PSYCHOSIS; Start 11/19/16 at 05:15 Metoprolol Succinate (Toprol Xl) 50 mg 1X ONCE PO Last administered on 17:33; Start 11/19/16 at 17:15; Stop 11/19/16 at 17:16; Status DC Metoprolol Succinate (Toprol Xl) 100 mg DAILY PO Last administered on 09:17; Start 11/20/16 at 09:00 Acetaminophen (Tylenol) 650 mg PRN Q6HRS PRN PO PAIN / TEMP; Start 11/19/16 at 17:39 Mirtazapine (Remeron) 7.5 mg QHS PO Last administered on 11/20/16 19:54; Start 11/19/16 at 21:00; Stop 11/21/16 at 18:44; Status DC Risperidone (RisperDAL) 0.25 mg QHS PO Last administered on 11/23/16 20:43; Start 11/19/16 at 21:00; Stop 11/24/16 at 18:32; Status DC Apixaban (Eliquis) 2.5 mg BID PO Last administered on 11/26/16 09:18; Start at 21:00 Meclizine HCl (Antivert) 25 mg BID PO Last administered on 11/21/16 19:37; Start 11/20/16 at 21:00; Stop 11/22/16 at 19:05; Status DC Ferrous Sulfate (Feosol) 325 mg DAILYWBKFT PO Last administered on 11/26/16 09 :18; Start 11/21/16 at 08:00 Cyanocobalamin (Vitamin B-12) 1,000 mcg DAILY PO Last administered on 09:17; Start 11/21/16 at 09:00 Trazodone HCl (Desyrel) 50 mg QHS PRN PO INSOMNIA, MAY REPEAT X1 Last administered on 11/25/16 19:44; Start 11/21/16 at 18:45 Vitamin D (Vitamin D3) 50,000 unit WEEKLY PO Last administered on 11/23/16 09: 02; Start 11/23/16 at 09:00 Mirtazapine (Remeron) 15 mg QHS PO Last administered on 11/25/16 20:49; Start 11/22/16 at 21:00 Risperidone (RisperDAL) 0.375 mg DAILY@1900 PO Last administered on 11/25/16 19 :41; Start 11/24/16 at 19:00; Stop 11/26/16 at 15:03; Status DC Risperidone (RisperDAL) 0.5 mg DAILY@1900 PO ; Start 11/26/16 at 19:00; Stop 02/02 at 19:03; Status DC Risperidone (RisperDAL) 1 mg DAILY@1900 PO ; Start 11/27/16 at 19:00 Active Scripts Active Reported Zinc Sulfate 220 Mg Tablet 220 Mg PO DAILY Micardis (Telmisartan) 40 Mg Tablet 40 Mg PO BID Aldactone (Spironolactone) 25 Mg Tablet 25 Mg PO DAILY Zoloft (Sertraline Hcl) 50 Mg Tablet 50 Mg PO DAILY Xarelto (Rivaroxaban) 15 Mg Tablet 15 Mg PO DAILY Prednisone 10 Mg Tablet 10 Mg PO DAILY Take 3 tablets by mouth twice a day for 3 days, then take 2 tablets by mouth twice a day for 3 days, then take 1 tablet by mouth twice a day for 3 days, then take 1 tablet by mouth daily x 3 days, then stop. Metoprolol Succinate ( Xl ) (Metoprolol Succinate) 50 Mg Tab.er.24h 50 Mg PO DAILY Glyburide 2.5 Mg Tablet 2.5 Mg PO DAILY Melatonin 3 Mg Tablet 3 Mg PO QHS Vitamin C (Ascorbate Calcium) 500 Mg Tablet 500 Mg PO BID Allopurinol 100 Mg Tablet 100 Mg PO DAILY Tylenol (Acetaminophen) 325 Mg Tablet 325 Mg PO PRN Q4HRS PRN Diagnosis: Problems: (1) Anxiety disorder (2) Psychosis, atypical (3) Impulse control disorder JANEY LAI MD Nov 26, 2016 19:55
[2016-11-26] MEDS: MELATONIN 3 MG TABLET PO SCH (20:34)
[2016-11-26] MEDS: MIRTAZAPINE 15 MG TABLET PO SCH (20:34)
--- NOTE | 2016-11-26 22:54 | PN ---
DATE: 11/25/2016 PSYCHIATRIC PROGRESS NOTE This is a late entry of 11/25/2016 covers elements not covered in my initial note. SUBJECTIVE: The patient slept 6-1/2 hours the previous evening. I met with him twice on rounds in the evening as he wanted to meet with me again later in his room. He wanted the door shut and had a very long conversation about believing how people where walking into his home at night to go into his 's bedroom and he felt she was having extramarital affairs. He is able to show inside that this may be his perception reality. The previous evening, he was talking about being confused had to walk across the parking lot, but no hallucinations noted. REVIEW OF SYSTEMS: No CV, , pulmonary, eye system symptoms on review. Ambulation impaired. MENTAL STATUS EXAM: Reasonably oriented. Speech coherent, abstraction fair, computation impaired, language function intact, attention span short. Mood and affect somewhat anxious, labile, but improved. LABORATORY DATA: Reviewed. IMPRESSION: Unchanged from initial note. PLAN: Continue current psychotropics. Risperdal will be increased to 0.5 mg p.o. daily starting on 11/26/2016. Continue the rest unchanged. JANEY LAI MD DR: LUZ/nila JOB#: [id number] / [id number]
[2016-11-27 05:54] VITALS: BP 138/88
[2016-11-27] MEDS: METOPROLOL SUCC 24HR ER 100 MG TAB.ER.24H. PO SCH (06:53)
[2016-11-27] MEDS: glyBURIDE 5 MG TABLET PO SCH (06:53)
[2016-11-27] MEDS: ZINC SULFATE 220 MG CAPSULE. PO SCH (06:54)
[2016-11-27] MEDS: APIXABAN 2.5 MG TABLET PO SCH ×2 (06:54→19:57)
[2016-11-27] MEDS: ALLOPURINOL 100 MG TABLET. PO SCH (06:54)
[2016-11-27] MEDS: SPIRONOLACTONE 25 MG TABLET PO SCH (06:54)
[2016-11-27] MEDS: FERROUS SULFATE 325 MG TABLET PO SCH (06:54)
[2016-11-27] MEDS: predniSONE 10 MG TABLET PO SCH (06:54)
[2016-11-27] MEDS: SERTRALINE 50 MG TABLET. PO SCH (06:54)
[2016-11-27] MEDS: CYANOCOBALAMIN (VITAMIN B-12) 1,000 MCG TABLET. PO SCH (06:54)
[2016-11-27] MEDS: LOSARTAN 50 MG TABLET. PO SCH (06:55)
[2016-11-27] MEDS: ASCORBIC ACID 500 MG TABLET PO SCH ×2 (06:55→19:57)
[2016-11-27 16:12] VITALS: BP 139/88
[2016-11-27] MEDS ORDERED: risperiDONE 1 MG TABLET. PO SCH (19:00)
[2016-11-27] MEDS: MELATONIN 3 MG TABLET PO SCH (19:57)
[2016-11-27] MEDS: MIRTAZAPINE 15 MG TABLET PO SCH (19:57)
[2016-11-27] MEDS: traZODone 50 MG TABLET. PO PRN (19:57)
[2016-11-27] MEDS: risperiDONE 0.5 MG TABLET. PO SCH (19:58)
--- NOTE | 2016-11-27 20:02 | PDOC ---
Exam Reynaldo Demential Exam: Reynaldo Note: Please also refer to the separate dictated note~for this date of service dictated separately.~Patient seen individually. Discussed the patient with Nursing staff reviewed the chart.~Reviewed interim history and current functioning. Reviewed vital signs,~Labs/ Radiology~and current medications noted below. Continue current treatment with the changes noted in the dictated addendum note Assessment: Vital Signs: Vital Signs Date Time Temp Pulse Resp B/P (MAP) Pulse Ox O2 Delivery O2 Flow Rate FiO2 11/27/16 16:12 97.8 81 18 139/88 (105) 96 11/27/16 05:54 Room Air I&O Intake and Output 11/27/16 07:00 Intake Total 900 ml Balance 900 ml Intake Oral 900 ml # Voids 1 Labs: Laboratory Tests Test 11/27/16 07:49 Glucose (Fingerstick) 87 mg/dL (70-99) Current Medications: Meds: Current Medications Acetaminophen (Tylenol) 650 mg PRN Q6HRS PRN PO PAIN / TEMP; Start 11/19/16 at 04:45; Stop 11/19/16 at 17:39; Status DC Multi-Ingredient Ointment (Analgesic [place]) 1 rajesh PRN QID PRN TP MUSCLE PAIN; Start 11/19/16 at 04:45 Al Hydroxide/Mg Hydroxide (Mylanta Plus Xs) 15 ml PRN AFTMEALHC PRN PO DYSPEPSIA; Start 11/19/16 at 04:45 Magnesium Hydroxide (Milk Of Magnesia) 2,400 mg PRN QHS PRN PO CONSTIPATION Last administered on 11/25/16 08:53; Start 11/19/16 at 04:45 Sertraline HCl (Zoloft) 50 mg DAILY PO Last administered on 11/27/16 06:54; Start 11/19/16 at 09:00 Melatonin 3 mg QHS PO Last administered on 11/27/16 19:57; Start 11/19/16 at 21 :00 Allopurinol (Zyloprim) 100 mg DAILY PO Last administered on 11/27/16 06:54; Start 11/19/16 at 09:00 Metoprolol Succinate (Toprol Xl) 50 mg DAILY PO Last administered on 11/19/16 09:21; Start 11/19/16 at 09:00; Stop 11/19/16 at 17:14; Status DC Prednisone (Prednisone) 10 mg DAILY PO Last administered on 11/27/16 06:54; Start 11/19/16 at 09:00 Rivaroxaban (Xarelto) 15 mg DAILY PO Last administered on 11/20/16 07:50; Start 11/19/16 at 09:00; Stop 11/20/16 at 17:18; Status DC Spironolactone (Aldactone) 25 mg DAILY PO Last administered on 11/27/16 06:54 ; Start 11/19/16 at 09:00 Ascorbic Acid (Vitamin C) 500 mg BID PO Last administered on 11/27/16 19:57; Start 11/19/16 at 09:00 Glyburide (Diabeta) 2.5 mg DAILYWBKFT PO Last administered on 11/27/16 06:53; Start 11/19/16 at 08:00 Losartan Potassium (Cozaar) 100 mg DAILY PO Last administered on 11/27/16 06: 55; Start 11/19/16 at 09:00 Zinc Sulfate (Orazinc) 220 mg DAILY PO Last administered on 11/27/16 06:54; Start 11/19/16 at 09:00 Info (Anti-Coagulation Monitoring By Pharmacy) 1 each PRN DAILY PRN MC SEE COMMENTS; Start 11/19/16 at 04:45; Status Cancel Olanzapine (ZyPREXA ZYDIS) 2.5 mg PRN Q2HR PRN PO PSYCHOSIS; Start 11/19/16 at 05:15 Metoprolol Succinate (Toprol Xl) 50 mg 1X ONCE PO Last administered on 17:33; Start 11/19/16 at 17:15; Stop 11/19/16 at 17:16; Status DC Metoprolol Succinate (Toprol Xl) 100 mg DAILY PO Last administered on 06:53; Start 11/20/16 at 09:00 Acetaminophen (Tylenol) 650 mg PRN Q6HRS PRN PO PAIN / TEMP; Start 11/19/16 at 17:39 Mirtazapine (Remeron) 7.5 mg QHS PO Last administered on 11/20/16 19:54; Start 11/19/16 at 21:00; Stop 11/21/16 at 18:44; Status DC Risperidone (RisperDAL) 0.25 mg QHS PO Last administered on 11/23/16 20:43; Start 11/19/16 at 21:00; Stop 11/24/16 at 18:32; Status DC Apixaban (Eliquis) 2.5 mg BID PO Last administered on 11/27/16 19:57; Start at 21:00 Meclizine HCl (Antivert) 25 mg BID PO Last administered on 11/21/16 19:37; Start 11/20/16 at 21:00; Stop 11/22/16 at 19:05; Status DC Ferrous Sulfate (Feosol) 325 mg DAILYWBKFT PO Last administered on 11/27/16 06 :54; Start 11/21/16 at 08:00 Cyanocobalamin (Vitamin B-12) 1,000 mcg DAILY PO Last administered on 06:54; Start 11/21/16 at 09:00 Trazodone HCl (Desyrel) 50 mg QHS PRN PO INSOMNIA, MAY REPEAT X1 Last administered on 11/27/16 19:57; Start 11/21/16 at 18:45 Vitamin D (Vitamin D3) 50,000 unit WEEKLY PO Last administered on 11/23/16 09: 02; Start 11/23/16 at 09:00 Mirtazapine (Remeron) 15 mg QHS PO Last administered on 11/27/16 19:57; Start 11/22/16 at 21:00 Risperidone (RisperDAL) 0.375 mg DAILY@1900 PO Last administered on 11/25/16 19 :41; Start 11/24/16 at 19:00; Stop 11/26/16 at 15:03; Status DC Risperidone (RisperDAL) 0.5 mg DAILY@1900 PO ; Start 11/26/16 at 19:00; Stop 02/02 at 19:03; Status DC Risperidone (RisperDAL) 1 mg DAILY@1900 PO ; Start 11/27/16 at 19:00; Stop 11/27 at 19:00; Status DC Risperidone (RisperDAL) 0.5 mg DAILY@1900 PO Last administered on 11/27/16 19: 58; Start 11/27/16 at 19:00 Risperidone (RisperDAL) 0.5 mg DAILY PO ; Start 11/28/16 at 09:00 Active Scripts Active Reported Zinc Sulfate 220 Mg Tablet 220 Mg PO DAILY Micardis (Telmisartan) 40 Mg Tablet 40 Mg PO BID Aldactone (Spironolactone) 25 Mg Tablet 25 Mg PO DAILY Zoloft (Sertraline Hcl) 50 Mg Tablet 50 Mg PO DAILY Xarelto (Rivaroxaban) 15 Mg Tablet 15 Mg PO DAILY Prednisone 10 Mg Tablet 10 Mg PO DAILY Take 3 tablets by mouth twice a day for 3 days, then take 2 tablets by mouth twice a day for 3 days, then take 1 tablet by mouth twice a day for 3 days, then take 1 tablet by mouth daily x 3 days, then stop. Metoprolol Succinate ( Xl ) (Metoprolol Succinate) 50 Mg Tab.er.24h 50 Mg PO DAILY Glyburide 2.5 Mg Tablet 2.5 Mg PO DAILY Melatonin 3 Mg Tablet 3 Mg PO QHS Vitamin C (Ascorbate Calcium) 500 Mg Tablet 500 Mg PO BID Allopurinol 100 Mg Tablet 100 Mg PO DAILY Tylenol (Acetaminophen) 325 Mg Tablet 325 Mg PO PRN Q4HRS PRN Diagnosis: Problems: (1) Anxiety disorder (2) Psychosis, atypical (3) Impulse control disorder JANEY LAI MD Nov 27, 2016 20:02
--- NOTE | 2016-11-27 22:34 | PN ---
DATE: 11/26/2016 This is a late entry for 11/26/2016, and covers the elements not covered in my initial note. SUBJECTIVE: The patient was staffed at a treatment team meeting at length the morning of 11/26/2016 and the patient's [id number], Lela, attended the conference. Reviewed at length his diagnosis, past history of an intracranial lesion with partial excision, which could be further complicating the presentation. He has been quite paranoid, delusional that his is having an affair, that young man walk into his house at night to go into her bedroom. His son has removed all the guns. The patient is wanting one of his guns back to protect his . MENTAL STATUS EXAMINATION: He is quite oriented. No CV, , pulmonary, eye, ENT system symptoms on review. Complains of some lightheadedness at times, sleep and appetite are fair, at times in the evening gets confused believes he has to walk across a parking lot. Reasonably oriented. Speech coherent, abstraction fair, computation somewhat impaired, language function intact. Mood and affect somewhat anxious, labile. LABORATORY DATA: Reviewed. IMPRESSION: Unchanged from initial note. PLAN: Increase Risperdal from 0.375 mg a day, initially I thought of increasing to 0.5 mg a day and then decided to increase to 1 mg a day. Maintain the Rest unchanged and adjust further as clinically indicated. JANEY LAI MD DR: LUZ/nila JOB#: [id number] / [id number]
[2016-11-28 06:44] VITALS: BP 140/70
[2016-11-28] MEDS: glyBURIDE 5 MG TABLET PO SCH (08:51)
[2016-11-28] MEDS: FERROUS SULFATE 325 MG TABLET PO SCH (08:57)
[2016-11-28] MEDS: SPIRONOLACTONE 25 MG TABLET PO SCH (08:59)
[2016-11-28] MEDS: risperiDONE 0.5 MG TABLET. PO SCH ×2 (09:00→18:19)
[2016-11-28] MEDS: LOSARTAN 50 MG TABLET. PO SCH (09:00)
[2016-11-28] MEDS: CYANOCOBALAMIN (VITAMIN B-12) 1,000 MCG TABLET. PO SCH (09:00)
[2016-11-28] MEDS: METOPROLOL SUCC 24HR ER 100 MG TAB.ER.24H. PO SCH (09:00)
[2016-11-28] MEDS: ZINC SULFATE 220 MG CAPSULE. PO SCH (09:00)
[2016-11-28] MEDS: SERTRALINE 50 MG TABLET. PO SCH (09:00)
[2016-11-28] MEDS: APIXABAN 2.5 MG TABLET PO SCH ×2 (09:00→20:25)
[2016-11-28] MEDS: predniSONE 10 MG TABLET PO SCH (09:00)
[2016-11-28] MEDS: ASCORBIC ACID 500 MG TABLET PO SCH ×2 (09:00→20:25)
[2016-11-28] MEDS: ALLOPURINOL 100 MG TABLET. PO SCH (09:01)
[2016-11-28 16:36] VITALS: BP 135/84
[2016-11-28] MEDS: MELATONIN 3 MG TABLET PO SCH (20:25)
[2016-11-28] MEDS: MIRTAZAPINE 15 MG TABLET PO SCH (20:25)
[2016-11-28] MEDS: traZODone 50 MG TABLET. PO PRN (20:25)
--- NOTE | 2016-11-28 20:39 | PN ---
DATE: 11/27/2016 This is a late entry for 11/27/2016 and covers elements not covered in my initial note. SUBJECTIVE: The patient was seen individually evening 11/27/2016. The patient did well the previous evening and has done reasonably well during the day on 11/27/2016, but as I met with him, he admits to some unsteadiness of his gait and dizziness. He states especially when he gets up at night to go to the restroom, he feels very unsteady. He does get 1 mg Risperdal at 1900 hours and we will change it to 0.5 mg b.i.d. to reduce the potential side effect. REVIEW OF SYSTEMS: Ambulation impaired. No CV, , pulmonary, eye, ENT system symptoms on review. MENTAL STATUS EXAM: The patient was seen individually, pleasant, verbal, as I met with him and I sat with him. Speech is coherent, abstraction fair, computation somewhat impaired, language function intact. Less psychotic, mood and affect showing improved liability and he was able to process at some length how he now was feeling that perhaps his was not having an affair. He talked at great length how he met with his neighbor who has security cameras and neighbor had reassured him that he had not seen anything on the security cameras to validate his belief that young men were coming in to his house at night. It is interesting that the patient brought this up spontaneously with me the evening of 11/27/2016. LABORATORY DATA: Reviewed. IMPRESSION: Unchanged from initial note. PLAN: Continue psychotropics with the changes noted above. Reviewed drug interactions at length. Risk/benefit ratio favors no further change at this time. MAN Ainsley LAI MD DR: LUZ/nila JOB#: [id number] / [id number]
--- NOTE | 2016-11-28 23:21 | PDOC ---
Exam Reynaldo Demential Exam: Reynaldo Note: Please also refer to the separate dictated note~for this date of service dictated separately.~Patient seen individually. Discussed the patient with Nursing staff reviewed the chart.~Reviewed interim history and current functioning. Reviewed vital signs,~Labs/ Radiology~and current medications noted below. Continue current treatment with the changes noted in the dictated addendum note Assessment: Vital Signs: Vital Signs Date Time Temp Pulse Resp B/P (MAP) Pulse Ox O2 Delivery O2 Flow Rate FiO2 11/28/16 16:36 97.8 73 16 135/84 (101) 98 11/28/16 06:31 Room Air I&O Intake and Output 11/28/16 07:00 Intake Total 1440 ml Balance 1440 ml Intake Oral 1440 ml # Voids 1 Labs: Laboratory Tests Test 11/28/16 07:54 Glucose (Fingerstick) 83 mg/dL (70-99) Current Medications: Meds: Current Medications Acetaminophen (Tylenol) 650 mg PRN Q6HRS PRN PO PAIN / TEMP; Start 11/19/16 at 04:45; Stop 11/19/16 at 17:39; Status DC Multi-Ingredient Ointment (Analgesic [place]) 1 rajesh PRN QID PRN TP MUSCLE PAIN; Start 11/19/16 at 04:45 Al Hydroxide/Mg Hydroxide (Mylanta Plus Xs) 15 ml PRN AFTMEALHC PRN PO DYSPEPSIA; Start 11/19/16 at 04:45 Magnesium Hydroxide (Milk Of Magnesia) 2,400 mg PRN QHS PRN PO CONSTIPATION Last administered on 11/25/16 08:53; Start 11/19/16 at 04:45 Sertraline HCl (Zoloft) 50 mg DAILY PO Last administered on 11/28/16 09:00; Start 11/19/16 at 09:00 Melatonin 3 mg QHS PO Last administered on 11/28/16 20:25; Start 11/19/16 at 21 :00 Allopurinol (Zyloprim) 100 mg DAILY PO Last administered on 11/28/16 09:01; Start 11/19/16 at 09:00 Metoprolol Succinate (Toprol Xl) 50 mg DAILY PO Last administered on 11/19/16 09:21; Start 11/19/16 at 09:00; Stop 11/19/16 at 17:14; Status DC Prednisone (Prednisone) 10 mg DAILY PO Last administered on 11/28/16 09:00; Start 11/19/16 at 09:00 Rivaroxaban (Xarelto) 15 mg DAILY PO Last administered on 11/20/16 07:50; Start 11/19/16 at 09:00; Stop 11/20/16 at 17:18; Status DC Spironolactone (Aldactone) 25 mg DAILY PO Last administered on 11/28/16 08:59 ; Start 11/19/16 at 09:00 Ascorbic Acid (Vitamin C) 500 mg BID PO Last administered on 11/28/16 20:25; Start 11/19/16 at 09:00 Glyburide (Diabeta) 2.5 mg DAILYWBKFT PO Last administered on 11/28/16 08:51; Start 11/19/16 at 08:00 Losartan Potassium (Cozaar) 100 mg DAILY PO Last administered on 11/28/16 09: 00; Start 11/19/16 at 09:00 Zinc Sulfate (Orazinc) 220 mg DAILY PO Last administered on 11/28/16 09:00; Start 11/19/16 at 09:00 Info (Anti-Coagulation Monitoring By Pharmacy) 1 each PRN DAILY PRN [facility] SEE COMMENTS; Start 11/19/16 at 04:45; Status Cancel Olanzapine (ZyPREXA ZYDIS) 2.5 mg PRN Q2HR PRN PO PSYCHOSIS; Start 11/19/16 at 05:15 Metoprolol Succinate (Toprol Xl) 50 mg 1X ONCE PO Last administered on 17:33; Start 11/19/16 at 17:15; Stop 11/19/16 at 17:16; Status DC Metoprolol Succinate (Toprol Xl) 100 mg DAILY PO Last administered on 09:00; Start 11/20/16 at 09:00 Acetaminophen (Tylenol) 650 mg PRN Q6HRS PRN PO PAIN / TEMP; Start 11/19/16 at 17:39 Mirtazapine (Remeron) 7.5 mg QHS PO Last administered on 11/20/16 19:54; Start 11/19/16 at 21:00; Stop 11/21/16 at 18:44; Status DC Risperidone (RisperDAL) 0.25 mg QHS PO Last administered on 11/23/16 20:43; Start 11/19/16 at 21:00; Stop 11/24/16 at 18:32; Status DC Apixaban (Eliquis) 2.5 mg BID PO Last administered on 11/28/16 20:25; Start at 21:00 Meclizine HCl (Antivert) 25 mg BID PO Last administered on 11/21/16 19:37; Start 11/20/16 at 21:00; Stop 11/22/16 at 19:05; Status DC Ferrous Sulfate (Feosol) 325 mg DAILYWBKFT PO Last administered on 11/28/16 08 :57; Start 11/21/16 at 08:00 Cyanocobalamin (Vitamin B-12) 1,000 mcg DAILY PO Last administered on 09:00; Start 11/21/16 at 09:00 Trazodone HCl (Desyrel) 50 mg QHS PRN PO INSOMNIA, MAY REPEAT X1 Last administered on 11/28/16 20:25; Start 11/21/16 at 18:45 Vitamin D (Vitamin D3) 50,000 unit WEEKLY PO Last administered on 11/23/16 09: 02; Start 11/23/16 at 09:00 Mirtazapine (Remeron) 15 mg QHS PO Last administered on 11/28/16 20:25; Start 11/22/16 at 21:00 Risperidone (RisperDAL) 0.375 mg DAILY@1900 PO Last administered on 11/25/16 19 :41; Start 11/24/16 at 19:00; Stop 11/26/16 at 15:03; Status DC Risperidone (RisperDAL) 0.5 mg DAILY@1900 PO ; Start 11/26/16 at 19:00; Stop 02/02 at 19:03; Status DC Risperidone (RisperDAL) 1 mg DAILY@1900 PO ; Start 11/27/16 at 19:00; Stop 11/27 at 19:00; Status DC Risperidone (RisperDAL) 0.5 mg DAILY@1900 PO Last administered on 11/28/16 18: 19; Start 11/27/16 at 19:00 Risperidone (RisperDAL) 0.5 mg DAILY PO Last administered on 11/28/16t 09:00; Start 11/28/16 at 09:00 Active Scripts Active Reported Zinc Sulfate 220 Mg Tablet 220 Mg PO DAILY Micardis (Telmisartan) 40 Mg Tablet 40 Mg PO BID Aldactone (Spironolactone) 25 Mg Tablet 25 Mg PO DAILY Zoloft (Sertraline Hcl) 50 Mg Tablet 50 Mg PO DAILY Xarelto (Rivaroxaban) 15 Mg Tablet 15 Mg PO DAILY Prednisone 10 Mg Tablet 10 Mg PO DAILY Take 3 tablets by mouth twice a day for 3 days, then take 2 tablets by mouth twice a day for 3 days, then take 1 tablet by mouth twice a day for 3 days, then take 1 tablet by mouth daily x 3 days, then stop. Metoprolol Succinate ( Xl ) (Metoprolol Succinate) 50 Mg Tab.er.24h 50 Mg PO DAILY Glyburide 2.5 Mg Tablet 2.5 Mg PO DAILY Melatonin 3 Mg Tablet 3 Mg PO QHS Vitamin C (Ascorbate Calcium) 500 Mg Tablet 500 Mg PO BID Allopurinol 100 Mg Tablet 100 Mg PO DAILY Tylenol (Acetaminophen) 325 Mg Tablet 325 Mg PO PRN Q4HRS PRN Diagnosis: Problems: (1) Anxiety disorder (2) Psychosis, atypical (3) Impulse control disorder JANEY LAI MD Nov 28, 2016 23:21
[2016-11-29 06:22] VITALS: BP 147/89
[2016-11-29] MEDS: glyBURIDE 5 MG TABLET PO SCH (08:26)
[2016-11-29] MEDS: SPIRONOLACTONE 25 MG TABLET PO SCH (08:28)
[2016-11-29] MEDS: FERROUS SULFATE 325 MG TABLET PO SCH (08:28)
[2016-11-29] MEDS: ZINC SULFATE 220 MG CAPSULE. PO SCH (08:29)
[2016-11-29] MEDS: risperiDONE 0.5 MG TABLET. PO SCH ×2 (08:29→18:08)
[2016-11-29] MEDS: APIXABAN 2.5 MG TABLET PO SCH ×2 (08:29→20:02)
[2016-11-29] MEDS: LOSARTAN 50 MG TABLET. PO SCH (08:29)
[2016-11-29] MEDS: predniSONE 10 MG TABLET PO SCH (08:29)
[2016-11-29] MEDS: SERTRALINE 50 MG TABLET. PO SCH (08:30)
[2016-11-29] MEDS: METOPROLOL SUCC 24HR ER 100 MG TAB.ER.24H. PO SCH (08:30)
[2016-11-29] MEDS: ALLOPURINOL 100 MG TABLET. PO SCH (08:30)
[2016-11-29] MEDS: CYANOCOBALAMIN (VITAMIN B-12) 1,000 MCG TABLET. PO SCH (08:30)
[2016-11-29] MEDS: ASCORBIC ACID 500 MG TABLET PO SCH ×2 (08:30→20:02)
[2016-11-29 17:38] VITALS: BP 110/70
[2016-11-29] MEDS: MELATONIN 3 MG TABLET PO SCH (20:01)
[2016-11-29] MEDS: MIRTAZAPINE 15 MG TABLET PO SCH (20:02)
[2016-11-29] MEDS: traZODone 50 MG TABLET. PO PRN (20:02)
[2016-11-29] MEDS: MAGNESIUM HYDROXIDE 2,400 MG/30 ML ORAL.SUSP. PO PRN (20:25)
--- NOTE | 2016-11-29 20:27 | PDOC ---
Exam Reynaldo Demential Exam: Reynaldo Note: Please also refer to the separate dictated note~for this date of service dictated separately.~Patient seen individually. Discussed the patient with Nursing staff reviewed the chart.~Reviewed interim history and current functioning. Reviewed vital signs,~Labs/ Radiology~and current medications noted below. Continue current treatment with the changes noted in the dictated addendum note Assessment: Vital Signs: Vital Signs Date Time Temp Pulse Resp B/P (MAP) Pulse Ox O2 Delivery O2 Flow Rate FiO2 11/29/16 17:38 98.1 76 18 110/70 (83) 98 11/28/16 06:31 Room Air I&O Intake and Output 11/29/16 07:00 Intake Total 1200 ml Balance 1200 ml Intake Oral 1200 ml # Voids 1 # Bowel Movements 1 Labs: Laboratory Tests Test 11/29/16 07:20 Glucose (Fingerstick) 95 mg/dL (70-99) Current Medications: Meds: Current Medications Acetaminophen (Tylenol) 650 mg PRN Q6HRS PRN PO PAIN / TEMP; Start 11/19/16 at 04:45; Stop 11/19/16 at 17:39; Status DC Multi-Ingredient Ointment (Analgesic [place]) 1 rajesh PRN QID PRN TP MUSCLE PAIN; Start 11/19/16 at 04:45 Al Hydroxide/Mg Hydroxide (Mylanta Plus Xs) 15 ml PRN AFTMEALHC PRN PO DYSPEPSIA; Start 11/19/16 at 04:45 Magnesium Hydroxide (Milk Of Magnesia) 2,400 mg PRN QHS PRN PO CONSTIPATION Last administered on 11/29/16 20:25; Start 11/19/16 at 04:45 Sertraline HCl (Zoloft) 50 mg DAILY PO Last administered on 11/29/16 08:30; Start 11/19/16 at 09:00 Melatonin 3 mg QHS PO Last administered on 11/29/16 20:01; Start 11/19/16 at 21 :00 Allopurinol (Zyloprim) 100 mg DAILY PO Last administered on 11/29/16 08:30; Start 11/19/16 at 09:00 Metoprolol Succinate (Toprol Xl) 50 mg DAILY PO Last administered on 11/19/16 09:21; Start 11/19/16 at 09:00; Stop 11/19/16 at 17:14; Status DC Prednisone (Prednisone) 10 mg DAILY PO Last administered on 11/29/16 08:29; Start 11/19/16 at 09:00 Rivaroxaban (Xarelto) 15 mg DAILY PO Last administered on 11/20/16 07:50; Start 11/19/16 at 09:00; Stop 11/20/16 at 17:18; Status DC Spironolactone (Aldactone) 25 mg DAILY PO Last administered on 11/29/16 08:28 ; Start 11/19/16 at 09:00 Ascorbic Acid (Vitamin C) 500 mg BID PO Last administered on 11/29/16 20:02; Start 11/19/16 at 09:00 Glyburide (Diabeta) 2.5 mg DAILYWBKFT PO Last administered on 11/29/16 08:26; Start 11/19/16 at 08:00 Losartan Potassium (Cozaar) 100 mg DAILY PO Last administered on 11/29/16 08: 29; Start 11/19/16 at 09:00 Zinc Sulfate (Orazinc) 220 mg DAILY PO Last administered on 11/29/16 08:29; Start 11/19/16 at 09:00 Info (Anti-Coagulation Monitoring By Pharmacy) 1 each PRN DAILY PRN [facility] SEE COMMENTS; Start 11/19/16 at 04:45; Status Cancel Olanzapine (ZyPREXA ZYDIS) 2.5 mg PRN Q2HR PRN PO PSYCHOSIS; Start 11/19/16 at 05:15 Metoprolol Succinate (Toprol Xl) 50 mg 1X ONCE PO Last administered on 17:33; Start 11/19/16 at 17:15; Stop 11/19/16 at 17:16; Status DC Metoprolol Succinate (Toprol Xl) 100 mg DAILY PO Last administered on 08:30; Start 11/20/16 at 09:00 Acetaminophen (Tylenol) 650 mg PRN Q6HRS PRN PO PAIN / TEMP; Start 11/19/16 at 17:39 Mirtazapine (Remeron) 7.5 mg QHS PO Last administered on 11/20/16 19:54; Start 11/19/16 at 21:00; Stop 11/21/16 at 18:44; Status DC Risperidone (RisperDAL) 0.25 mg QHS PO Last administered on 11/23/16 20:43; Start 11/19/16 at 21:00; Stop 11/24/16 at 18:32; Status DC Apixaban (Eliquis) 2.5 mg BID PO Last administered on 11/29/16 20:02; Start at 21:00 Meclizine HCl (Antivert) 25 mg BID PO Last administered on 11/21/16 19:37; Start 11/20/16 at 21:00; Stop 11/22/16 at 19:05; Status DC Ferrous Sulfate (Feosol) 325 mg DAILYWBKFT PO Last administered on 11/29/16 08 :28; Start 11/21/16 at 08:00 Cyanocobalamin (Vitamin B-12) 1,000 mcg DAILY PO Last administered on 08:30; Start 11/21/16 at 09:00 Trazodone HCl (Desyrel) 50 mg QHS PRN PO INSOMNIA, MAY REPEAT X1 Last administered on 11/29/16 20:02; Start 11/21/16 at 18:45 Vitamin D (Vitamin D3) 50,000 unit WEEKLY PO Last administered on 11/23/16 09: 02; Start 11/23/16 at 09:00 Mirtazapine (Remeron) 15 mg QHS PO Last administered on 11/29/16 20:02; Start 11/22/16 at 21:00 Risperidone (RisperDAL) 0.375 mg DAILY@1900 PO Last administered on 11/25/16 19 :41; Start 11/24/16 at 19:00; Stop 11/26/16 at 15:03; Status DC Risperidone (RisperDAL) 0.5 mg DAILY@1900 PO ; Start 11/26/16 at 19:00; Stop 02/02 at 19:03; Status DC Risperidone (RisperDAL) 1 mg DAILY@1900 PO ; Start 11/27/16 at 19:00; Stop 11/27 at 19:00; Status DC Risperidone (RisperDAL) 0.5 mg DAILY@1900 PO Last administered on 11/29/16 18: 08; Start 11/27/16 at 19:00; Stop 11/29/16 at 19:24; Status DC Risperidone (RisperDAL) 0.5 mg DAILY PO Last administered on 11/29/16t 08:29; Start 11/28/16 at 09:00 Risperidone (RisperDAL) 1 mg DAILY@1900 PO ; Start 11/30/16 at 19:00 Active Scripts Active Reported Zinc Sulfate 220 Mg Tablet 220 Mg PO DAILY Micardis (Telmisartan) 40 Mg Tablet 40 Mg PO BID Aldactone (Spironolactone) 25 Mg Tablet 25 Mg PO DAILY Zoloft (Sertraline Hcl) 50 Mg Tablet 50 Mg PO DAILY Xarelto (Rivaroxaban) 15 Mg Tablet 15 Mg PO DAILY Prednisone 10 Mg Tablet 10 Mg PO DAILY Take 3 tablets by mouth twice a day for 3 days, then take 2 tablets by mouth twice a day for 3 days, then take 1 tablet by mouth twice a day for 3 days, then take 1 tablet by mouth daily x 3 days, then stop. Metoprolol Succinate ( Xl ) (Metoprolol Succinate) 50 Mg Tab.er.24h 50 Mg PO DAILY Glyburide 2.5 Mg Tablet 2.5 Mg PO DAILY Melatonin 3 Mg Tablet 3 Mg PO QHS Vitamin C (Ascorbate Calcium) 500 Mg Tablet 500 Mg PO BID Allopurinol 100 Mg Tablet 100 Mg PO DAILY Tylenol (Acetaminophen) 325 Mg Tablet 325 Mg PO PRN Q4HRS PRN Diagnosis: Problems: (1) Anxiety disorder (2) Psychosis, atypical (3) Impulse control disorder JANEY LAI MD Nov 29, 2016 20:27
--- NOTE | 2016-11-29 22:04 | PN ---
DATE: 11/28/2016 PSYCHIATRIC PROGRESS NOTE This is a late entry of 11/28/2016 covers elements not covered in my initial note. SUBJECTIVE: I met with the patient evening of 11/28/2016. Per nursing report, the patient was seen pleasant, interactive, social calmer, and compliant. This is a gradual improvement for him. He seems less psychotic as I met with him at some length individually evening of 11/28/2016. No CV, , pulmonary, eye, ENT system symptoms on review. Gait somewhat unsteady. MENTAL STATUS EXAM: Reasonably oriented. Speech coherent, abstraction fair, computation impaired, language function intact. Mood and affect showing stability. He talked at length about that it is probably not feasible that is why first getting young man to come to her at night because his neighbor has cameras when they did not pickup anything. However, he was still questioning and ____ from the distant past when his had told him that she had gone out for a cup of coffee with a male friend. He is still somewhat preoccupied with this, but much less delusional. Speech is coherent, abstraction fair, computation somewhat impaired. Mood and affect appears stable. No active suicidal or homicidal ideation. LABORATORY DATA: Reviewed. IMPRESSION: Unchanged from initial note. PLAN: Continue current psychotropics mentioned in my initial note. Adjust as clinically indicated. MAN Ainsley LAI MD DR: LUZ/nila JOB#: [id number] / [id number]
[2016-11-30 06:30] VITALS: BP 145/80
[2016-11-30] MEDS: METOPROLOL SUCC 24HR ER 100 MG TAB.ER.24H. PO SCH (09:00)
[2016-11-30] MEDS: predniSONE 10 MG TABLET PO SCH (09:15)
[2016-11-30] MEDS: ALLOPURINOL 100 MG TABLET. PO SCH (09:15)
[2016-11-30] MEDS: CHOLECALCIFEROL (VITAMIN D3) 50,000 UNIT CAPSULE PO SCH (09:15)
[2016-11-30] MEDS: glyBURIDE 5 MG TABLET PO SCH (09:15)
[2016-11-30] MEDS: ASCORBIC ACID 500 MG TABLET PO SCH ×2 (09:15→19:48)
[2016-11-30] MEDS: APIXABAN 2.5 MG TABLET PO SCH ×2 (09:15→19:49)
[2016-11-30] MEDS: FERROUS SULFATE 325 MG TABLET PO SCH (09:15)
[2016-11-30] MEDS: SERTRALINE 50 MG TABLET. PO SCH (09:15)
[2016-11-30] MEDS: CYANOCOBALAMIN (VITAMIN B-12) 1,000 MCG TABLET. PO SCH (09:15)
[2016-11-30] MEDS: ZINC SULFATE 220 MG CAPSULE. PO SCH (09:15)
[2016-11-30] MEDS: risperiDONE 0.5 MG TABLET. PO SCH (09:15)
[2016-11-30] MEDS: SPIRONOLACTONE 25 MG TABLET PO SCH (09:15)
[2016-11-30] MEDS: LOSARTAN 50 MG TABLET. PO SCH (09:15)
[2016-11-30 11:34] LABS: BASO % 1 % (0-3); EOS # 0.2 x10^3/uL (0.0-0.7); EOS % 2 % (0-3); HEMOGLOBIN 12.8 g/dL (13.0-17.5); LYMPH # 1.1 x10^3/uL (1.0-4.8); LYMPH % 15 % (24-48); MEAN CORPUSCULAR HEMOGLOBIN 30 pg (25-35); MEAN CORPUSCULAR HGB CONC 33 g/dL (31-37); MEAN CORPUSCULAR VOLUME 92 fL (79-100); MONO # 0.4 x10^3/uL (0.0-1.1); MONO % 5 % (0-9); NEUT % 77 % (31-73); PLATELET COUNT 176 x10^3/uL (140-400); RED BLOOD COUNT 4.24 x10^6/uL (4.30-5.70); RED CELL DISTRIBUTION WIDTH 14.6 % (11.5-14.5); WHITE BLOOD COUNT 7.8 x10^3/uL (4.0-11.0)
[2016-11-30 13:21] LABS: ALBUMIN 3.5 g/dL (3.4-5.0); ALBUMIN/GLOBULIN RATIO 1.2 (1.0-1.7); CALCIUM 9.6 mg/dL (8.5-10.1); CREATININE 1.5 mg/dL (0.7-1.3); GFR 44.7; POTASSIUM 4.2 mmol/L (3.5-5.1); TOTAL BILIRUBIN 0.3 mg/dL (0.2-1.0); TOTAL PROTEIN 6.4 g/dL (6.4-8.2)
[2016-11-30 17:00] VITALS: BP 130/80
[2016-11-30] MEDS: risperiDONE 1 MG TABLET. PO SCH (17:54)
[2016-11-30] MEDS: MELATONIN 3 MG TABLET PO SCH (19:49)
[2016-11-30] MEDS: MIRTAZAPINE 15 MG TABLET PO SCH (19:49)
--- NOTE | 2016-11-30 20:27 | PDOC ---
Exam Reynaldo Demential Exam: Reynaldo Note: Please also refer to the separate dictated note~for this date of service dictated separately.~Patient seen individually. Discussed the patient with Nursing staff reviewed the chart.~Reviewed interim history and current functioning. Reviewed vital signs,~Labs/ Radiology~and current medications noted below. Continue current treatment with the changes noted in the dictated addendum note Assessment: Vital Signs: Vital Signs Date Time Temp Pulse Resp B/P (MAP) Pulse Ox O2 Delivery O2 Flow Rate FiO2 11/30/16 17:00 97.9 88 22 130/80 (97) 98 11/28/16 06:31 Room Air I&O Intake and Output 11/30/16 07:00 Intake Total 1640 ml Balance 1640 ml Intake Oral 1640 ml # Voids 3 Labs: Laboratory Tests Test 11/30/16 07:19 11/30/16 08:58 Glucose (Fingerstick) 97 mg/dL (70-99) White Blood Count 7.8 x10^3/uL (4.0-11.0) Red Blood Count 4.24 x10^6/uL (4.30-5.70) L Hemoglobin 12.8 g/dL (13.0-17.5) L Hematocrit 39.0 % (39.0-53.0) Mean Corpuscular Volume 92 fL (79-100) Mean Corpuscular Hemoglobin 30 pg (25-35) Mean Corpuscular Hemoglobin Concent 33 g/dL (31-37) Red Cell Distribution Width 14.6 % (11.5-14.5) H Platelet Count 176 x10^3/uL (140-400) Neutrophils (%) (Auto) 77 % (31-73) H Lymphocytes (%) (Auto) 15 % (24-48) L Monocytes (%) (Auto) 5 % (0-9) Eosinophils (%) (Auto) 2 % (0-3) Basophils (%) (Auto) 1 % (0-3) Neutrophils # (Auto) 6.0 x10^3uL (1.8-7.7) Lymphocytes # (Auto) 1.1 x10^3/uL (1.0-4.8) Monocytes # (Auto) 0.4 x10^3/uL (0.0-1.1) Eosinophils # (Auto) 0.2 x10^3/uL (0.0-0.7) Basophils # (Auto) 0.0 x10^3/uL (0.0-0.2) Sodium Level 146 mmol/L (136-145) H Potassium Level 4.2 mmol/L (3.5-5.1) Chloride Level 110 mmol/L (98-107) H Carbon Dioxide Level 30 mmol/L (21-32) Anion Gap 6 (6-14) Blood Urea Nitrogen 28 mg/dL (8-26) H Creatinine 1.5 mg/dL (0.7-1.3) H Estimated GFR (Cockcroft-Gault) 44.7 BUN/Creatinine Ratio 19 (6-20) Glucose Level 131 mg/dL (70-99) H Calcium Level 9.6 mg/dL (8.5-10.1) Total Bilirubin 0.3 mg/dL (0.2-1.0) Aspartate Amino Transferase (AST) 12 U/L (15-37) L Alanine Aminotransferase (ALT) 28 U/L (16-63) Alkaline Phosphatase 62 U/L (46-116) Total Protein 6.4 g/dL (6.4-8.2) Albumin 3.5 g/dL (3.4-5.0) Albumin/Globulin Ratio 1.2 (1.0-1.7) Current Medications: Meds: Current Medications Acetaminophen (Tylenol) 650 mg PRN Q6HRS PRN PO PAIN / TEMP; Start 11/19/16 at 04:45; Stop 11/19/16 at 17:39; Status DC Multi-Ingredient Ointment (Analgesic [place]) 1 rajesh PRN QID PRN TP MUSCLE PAIN; Start 11/19/16 at 04:45 Al Hydroxide/Mg Hydroxide (Mylanta Plus Xs) 15 ml PRN AFTMEALHC PRN PO DYSPEPSIA; Start 11/19/16 at 04:45 Magnesium Hydroxide (Milk Of Magnesia) 2,400 mg PRN QHS PRN PO CONSTIPATION Last administered on 11/29/16 20:25; Start 11/19/16 at 04:45 Sertraline HCl (Zoloft) 50 mg DAILY PO Last administered on 11/30/16 09:15; Start 11/19/16 at 09:00 Melatonin 3 mg QHS PO Last administered on 11/30/16 19:49; Start 11/19/16 at 21 :00 Allopurinol (Zyloprim) 100 mg DAILY PO Last administered on 11/30/16 09:15; Start 11/19/16 at 09:00 Metoprolol Succinate (Toprol Xl) 50 mg DAILY PO Last administered on 11/19/16 09:21; Start 11/19/16 at 09:00; Stop 11/19/16 at 17:14; Status DC Prednisone (Prednisone) 10 mg DAILY PO Last administered on 11/30/16 09:15; Start 11/19/16 at 09:00 Rivaroxaban (Xarelto) 15 mg DAILY PO Last administered on 11/20/16 07:50; Start 11/19/16 at 09:00; Stop 11/20/16 at 17:18; Status DC Spironolactone (Aldactone) 25 mg DAILY PO Last administered on 11/30/16 09:15 ; Start 11/19/16 at 09:00 Ascorbic Acid (Vitamin C) 500 mg BID PO Last administered on 11/30/16 19:48; Start 11/19/16 at 09:00 Glyburide (Diabeta) 2.5 mg DAILYWBKFT PO Last administered on 11/30/16 09:15; Start 11/19/16 at 08:00 Losartan Potassium (Cozaar) 100 mg DAILY PO Last administered on 11/30/16 09: 15; Start 11/19/16 at 09:00 Zinc Sulfate (Orazinc) 220 mg DAILY PO Last administered on 11/30/16 09:15; Start 11/19/16 at 09:00 Info (Anti-Coagulation Monitoring By Pharmacy) 1 each PRN DAILY PRN [facility] SEE COMMENTS; Start 11/19/16 at 04:45; Status Cancel Olanzapine (ZyPREXA ZYDIS) 2.5 mg PRN Q2HR PRN PO PSYCHOSIS; Start 11/19/16 at 05:15 Metoprolol Succinate (Toprol Xl) 50 mg 1X ONCE PO Last administered on 17:33; Start 11/19/16 at 17:15; Stop 11/19/16 at 17:16; Status DC Metoprolol Succinate (Toprol Xl) 100 mg DAILY PO Last administered on 09:00; Start 11/20/16 at 09:00 Acetaminophen (Tylenol) 650 mg PRN Q6HRS PRN PO PAIN / TEMP; Start 11/19/16 at 17:39 Mirtazapine (Remeron) 7.5 mg QHS PO Last administered on 11/20/16 19:54; Start 11/19/16 at 21:00; Stop 11/21/16 at 18:44; Status DC Risperidone (RisperDAL) 0.25 mg QHS PO Last administered on 11/23/16 20:43; Start 11/19/16 at 21:00; Stop 11/24/16 at 18:32; Status DC Apixaban (Eliquis) 2.5 mg BID PO Last administered on 11/30/16 19:49; Start at 21:00 Meclizine HCl (Antivert) 25 mg BID PO Last administered on 11/21/16 19:37; Start 11/20/16 at 21:00; Stop 11/22/16 at 19:05; Status DC Ferrous Sulfate (Feosol) 325 mg DAILYWBKFT PO Last administered on 11/30/16 09 :15; Start 11/21/16 at 08:00 Cyanocobalamin (Vitamin B-12) 1,000 mcg DAILY PO Last administered on 09:15; Start 11/21/16 at 09:00 Trazodone HCl (Desyrel) 50 mg QHS PRN PO INSOMNIA, MAY REPEAT X1 Last administered on 11/29/16 20:02; Start 11/21/16 at 18:45 Vitamin D (Vitamin D3) 50,000 unit WEEKLY PO Last administered on 11/30/16 09: 15; Start 11/23/16 at 09:00 Mirtazapine (Remeron) 15 mg QHS PO Last administered on 11/30/16 19:49; Start 11/22/16 at 21:00 Risperidone (RisperDAL) 0.375 mg DAILY@1900 PO Last administered on 11/25/16 19 :41; Start 11/24/16 at 19:00; Stop 11/26/16 at 15:03; Status DC Risperidone (RisperDAL) 0.5 mg DAILY@1900 PO ; Start 11/26/16 at 19:00; Stop 02/02 at 19:03; Status DC Risperidone (RisperDAL) 1 mg DAILY@1900 PO ; Start 11/27/16 at 19:00; Stop 11/27 at 19:00; Status DC Risperidone (RisperDAL) 0.5 mg DAILY@1900 PO Last administered on 11/29/16 18: 08; Start 11/27/16 at 19:00; Stop 11/29/16 at 19:24; Status DC Risperidone (RisperDAL) 0.5 mg DAILY PO Last administered on 11/30/16 09:15; Start 11/28/16 at 09:00 Risperidone (RisperDAL) 1 mg DAILY@1900 PO Last administered on 11/30/16 17:54 ; Start 11/30/16 at 19:00 Active Scripts Active Reported Zinc Sulfate 220 Mg Tablet 220 Mg PO DAILY Micardis (Telmisartan) 40 Mg Tablet 40 Mg PO BID Aldactone (Spironolactone) 25 Mg Tablet 25 Mg PO DAILY Zoloft (Sertraline Hcl) 50 Mg Tablet 50 Mg PO DAILY Xarelto (Rivaroxaban) 15 Mg Tablet 15 Mg PO DAILY Prednisone 10 Mg Tablet 10 Mg PO DAILY Take 3 tablets by mouth twice a day for 3 days, then take 2 tablets by mouth twice a day for 3 days, then take 1 tablet by mouth twice a day for 3 days, then take 1 tablet by mouth daily x 3 days, then stop. Metoprolol Succinate ( Xl ) (Metoprolol Succinate) 50 Mg Tab.er.24h 50 Mg PO DAILY Glyburide 2.5 Mg Tablet 2.5 Mg PO DAILY Melatonin 3 Mg Tablet 3 Mg PO QHS Vitamin C (Ascorbate Calcium) 500 Mg Tablet 500 Mg PO BID Allopurinol 100 Mg Tablet 100 Mg PO DAILY Tylenol (Acetaminophen) 325 Mg Tablet 325 Mg PO PRN Q4HRS PRN Diagnosis: Problems: (1) Anxiety disorder (2) Psychosis, atypical (3) Impulse control disorder JANEY LAI MD Nov 30, 2016 20:27
[2016-12-01 05:37] VITALS: BP 136/86
[2016-12-01] MEDS: SPIRONOLACTONE 25 MG TABLET PO SCH (08:49)
[2016-12-01] MEDS: CYANOCOBALAMIN (VITAMIN B-12) 1,000 MCG TABLET. PO SCH (08:50)
[2016-12-01] MEDS: APIXABAN 2.5 MG TABLET PO SCH ×2 (08:50→19:45)
[2016-12-01] MEDS: ASCORBIC ACID 500 MG TABLET PO SCH ×2 (08:50→19:45)
[2016-12-01] MEDS: FERROUS SULFATE 325 MG TABLET PO SCH (08:50)
[2016-12-01] MEDS: SERTRALINE 50 MG TABLET. PO SCH (08:50)
[2016-12-01] MEDS: ALLOPURINOL 100 MG TABLET. PO SCH (08:50)
[2016-12-01] MEDS: LOSARTAN 50 MG TABLET. PO SCH (08:51)
[2016-12-01] MEDS: ZINC SULFATE 220 MG CAPSULE. PO SCH (08:51)
[2016-12-01] MEDS: predniSONE 10 MG TABLET PO SCH (08:51)
[2016-12-01] MEDS: risperiDONE 0.5 MG TABLET. PO SCH (08:51)
[2016-12-01] MEDS: METOPROLOL SUCC 24HR ER 100 MG TAB.ER.24H. PO SCH (08:51)
[2016-12-01] MEDS: glyBURIDE 5 MG TABLET PO SCH (08:52)
--- NOTE | 2016-12-01 10:25 | PN ---
DATE: 11/29/2016 This is a late entry for 11/29/2016 and covers elements not covered in my initial note of 11/29/2016. I met with the patient evening 11/29/2016 at some length individually. He did well the previous evening, slept 5-3/4 hours, was not up at night. No active hallucinations at night. However, as I talked to him at some length, he is still somewhat paranoid about his and states she told him about an incident where she went out for coffee with another man in the distant past and wonders what the reason was for that. He wonders if he has an member of parliament, though he does want to leave her. Paranoia persists, but is much improved. REVIEW OF SYSTEMS: No CV, , pulmonary, eye, ENT system symptoms on review. Gait steady with a walker. MENTAL STATUS EXAM: Reasonably oriented. Speech coherent, abstraction fair, computation impaired, language function intact, attention span short. Mood and affect less labile. Intellect average. Insight improving. No active suicidal or homicidal ideation. LABORATORY DATA: Reviewed. IMPRESSION: Unchanged from initial note. PLAN: Increase Risperdal from 0.5 mg twice a day to 0.5 mg in the morning and 1 mg at night. Continue rest of the psychotropics and change. Reviewed drug interaction, risk/benefit ratio favors no further change at this time. MAN Ainsley LAI MD DR: LUZ/nila JOB#: [id number] / [id number]
[2016-12-01 16:35] VITALS: BP 115/80
[2016-12-01] MEDS: MELATONIN 3 MG TABLET PO SCH (19:45)
[2016-12-01] MEDS: MIRTAZAPINE 15 MG TABLET PO SCH (19:45)
[2016-12-01] MEDS: risperiDONE 1 MG TABLET. PO SCH (19:46)
--- NOTE | 2016-12-01 20:03 | PDOC ---
Exam Reynaldo Demential Exam: Reynaldo Note: Please also refer to the separate dictated note~for this date of service dictated separately.~Patient seen individually. Discussed the patient with Nursing staff reviewed the chart.~Reviewed interim history and current functioning. Reviewed vital signs,~Labs/ Radiology~and current medications noted below. Continue current treatment with the changes noted in the dictated addendum note Assessment: Vital Signs: Vital Signs Date Time Temp Pulse Resp B/P (MAP) Pulse Ox O2 Delivery O2 Flow Rate FiO2 12/01/16 16:35 97.9 83 20 115/80 (92) 100 12/01/16 05:37 Room Air I&O Intake and Output 12/01/16 07:00 Intake Total 1420 ml Balance 1420 ml Intake Oral 1420 ml Labs: Laboratory Tests Test 12/01/16 07:27 Glucose (Fingerstick) 79 mg/dL (70-99) Current Medications: Meds: Current Medications Acetaminophen (Tylenol) 650 mg PRN Q6HRS PRN PO PAIN / TEMP; Start 11/19/16 at 04:45; Stop 11/19/16 at 17:39; Status DC Multi-Ingredient Ointment (Analgesic [place]) 1 rajesh PRN QID PRN TP MUSCLE PAIN; Start 11/19/16 at 04:45 Al Hydroxide/Mg Hydroxide (Mylanta Plus Xs) 15 ml PRN AFTMEALHC PRN PO DYSPEPSIA; Start 11/19/16 at 04:45 Magnesium Hydroxide (Milk Of Magnesia) 2,400 mg PRN QHS PRN PO CONSTIPATION Last administered on 11/29/16 20:25; Start 11/19/16 at 04:45 Sertraline HCl (Zoloft) 50 mg DAILY PO Last administered on 12/01/16 08:50; Start 11/19/16 at 09:00; Stop 12/01/16 at 13:35; Status DC Melatonin 3 mg QHS PO Last administered on 12/01/16 19:45; Start 11/19/16 at 21 :00 Allopurinol (Zyloprim) 100 mg DAILY PO Last administered on 12/01/16 08:50; Start 11/19/16 at 09:00 Metoprolol Succinate (Toprol Xl) 50 mg DAILY PO Last administered on 11/19/16 09:21; Start 11/19/16 at 09:00; Stop 11/19/16 at 17:14; Status DC Prednisone (Prednisone) 10 mg DAILY PO Last administered on 12/01/16 08:51; Start 11/19/16 at 09:00 Rivaroxaban (Xarelto) 15 mg DAILY PO Last administered on 11/20/16 07:50; Start 11/19/16 at 09:00; Stop 11/20/16 at 17:18; Status DC Spironolactone (Aldactone) 25 mg DAILY PO Last administered on 12/01/16 08:49 ; Start 11/19/16 at 09:00 Ascorbic Acid (Vitamin C) 500 mg BID PO Last administered on 12/01/16 19:45; Start 11/19/16 at 09:00 Glyburide (Diabeta) 2.5 mg DAILYWBKFT PO Last administered on 12/01/16 08:52; Start 11/19/16 at 08:00 Losartan Potassium (Cozaar) 100 mg DAILY PO Last administered on 12/01/16 08: 51; Start 11/19/16 at 09:00 Zinc Sulfate (Orazinc) 220 mg DAILY PO Last administered on 12/01/16 08:51; Start 11/19/16 at 09:00 Info (Anti-Coagulation Monitoring By Pharmacy) 1 each PRN DAILY PRN [facility] SEE COMMENTS; Start 11/19/16 at 04:45; Status Cancel Olanzapine (ZyPREXA ZYDIS) 2.5 mg PRN Q2HR PRN PO PSYCHOSIS; Start 11/19/16 at 05:15 Metoprolol Succinate (Toprol Xl) 50 mg 1X ONCE PO Last administered on 17:33; Start 11/19/16 at 17:15; Stop 11/19/16 at 17:16; Status DC Metoprolol Succinate (Toprol Xl) 100 mg DAILY PO Last administered on 08:51; Start 11/20/16 at 09:00 Acetaminophen (Tylenol) 650 mg PRN Q6HRS PRN PO PAIN / TEMP; Start 11/19/16 at 17:39 Mirtazapine (Remeron) 7.5 mg QHS PO Last administered on 11/20/16 19:54; Start 11/19/16 at 21:00; Stop 11/21/16 at 18:44; Status DC Risperidone (RisperDAL) 0.25 mg QHS PO Last administered on 11/23/16 20:43; Start 11/19/16 at 21:00; Stop 11/24/16 at 18:32; Status DC Apixaban (Eliquis) 2.5 mg BID PO Last administered on 12/01/16 19:45; Start at 21:00 Meclizine HCl (Antivert) 25 mg BID PO Last administered on 11/21/16 19:37; Start 11/20/16 at 21:00; Stop 11/22/16 at 19:05; Status DC Ferrous Sulfate (Feosol) 325 mg DAILYWBKFT PO Last administered on 12/01/16 08 :50; Start 11/21/16 at 08:00 Cyanocobalamin (Vitamin B-12) 1,000 mcg DAILY PO Last administered on 08:50; Start 11/21/16 at 09:00 Trazodone HCl (Desyrel) 50 mg QHS PRN PO INSOMNIA, MAY REPEAT X1 Last administered on 11/29/16 20:02; Start 11/21/16 at 18:45 Vitamin D (Vitamin D3) 50,000 unit WEEKLY PO Last administered on 11/30/16 09: 15; Start 11/23/16 at 09:00 Mirtazapine (Remeron) 15 mg QHS PO Last administered on 12/01/16 19:45; Start 11/22/16 at 21:00 Risperidone (RisperDAL) 0.375 mg DAILY@1900 PO Last administered on 11/25/16 19 :41; Start 11/24/16 at 19:00; Stop 11/26/16 at 15:03; Status DC Risperidone (RisperDAL) 0.5 mg DAILY@1900 PO ; Start 11/26/16 at 19:00; Stop 02/02 at 19:03; Status DC Risperidone (RisperDAL) 1 mg DAILY@1900 PO ; Start 11/27/16 at 19:00; Stop 11/27 at 19:00; Status DC Risperidone (RisperDAL) 0.5 mg DAILY@1900 PO Last administered on 11/29/16 18: 08; Start 11/27/16 at 19:00; Stop 11/29/16 at 19:24; Status DC Risperidone (RisperDAL) 0.5 mg DAILY PO Last administered on 12/01/16 08:51; Start 11/28/16 at 09:00 Risperidone (RisperDAL) 1 mg DAILY@1900 PO Last administered on 12/01/16 19:46 ; Start 11/30/16 at 19:00 Sertraline HCl (Zoloft) 75 mg DAILY PO ; Start 12/02/16 at 09:00 Active Scripts Active Reported Zinc Sulfate 220 Mg Tablet 220 Mg PO DAILY Micardis (Telmisartan) 40 Mg Tablet 40 Mg PO BID Aldactone (Spironolactone) 25 Mg Tablet 25 Mg PO DAILY Zoloft (Sertraline Hcl) 50 Mg Tablet 50 Mg PO DAILY Xarelto (Rivaroxaban) 15 Mg Tablet 15 Mg PO DAILY Prednisone 10 Mg Tablet 10 Mg PO DAILY Take 3 tablets by mouth twice a day for 3 days, then take 2 tablets by mouth twice a day for 3 days, then take 1 tablet by mouth twice a day for 3 days, then take 1 tablet by mouth daily x 3 days, then stop. Metoprolol Succinate ( Xl ) (Metoprolol Succinate) 50 Mg Tab.er.24h 50 Mg PO DAILY Glyburide 2.5 Mg Tablet 2.5 Mg PO DAILY Melatonin 3 Mg Tablet 3 Mg PO QHS Vitamin C (Ascorbate Calcium) 500 Mg Tablet 500 Mg PO BID Allopurinol 100 Mg Tablet 100 Mg PO DAILY Tylenol (Acetaminophen) 325 Mg Tablet 325 Mg PO PRN Q4HRS PRN Diagnosis: Problems: (1) Anxiety disorder (2) Psychosis, atypical (3) Impulse control disorder JANEY LAI MD Dec 01, 2016 20:03
--- NOTE | 2016-12-02 04:26 | PN ---
DATE: 11/30/2016 This late entry 11/30/2016 covers elements not covered in my initial note of 11/30/2016. I met with the patient in the evening of 11/30/2016. In the evening of 11/29, he was telling staff that he was concerned his does not want him back home. Reportedly, is afraid of him in some respect. He urinated in his pants on 11/30/2016. Someone was visiting another patient on the unit and he knew them from the past, but walked away, did not interact with them. Per social service staff, this was somewhat of a change. REVIEW OF SYSTEMS: Ambulation impaired with walker. No CV, , pulmonary, eye, ENT system symptoms on review. Reliability poor. MENTAL STATUS EXAM: Oriented to himself and situation. Speech is coherent, abstraction fair, computation impaired, language function intact. Mood and affect less labile. LABORATORY DATA: Reviewed. IMPRESSION: Unchanged from initial note. PLAN: Continue current psychotropics including Risperdal 1 mg a day, Remeron, Zoloft. Zoloft will be increased to 75 mg a day starting 12/01/2016. Adjust further as clinically indicated. JANEY LAI MD DR: LUZ/nila JOB#: [id number] / [id number]
[2016-12-02 06:33] VITALS: BP 143/87
[2016-12-02] MEDS: SPIRONOLACTONE 25 MG TABLET PO SCH (06:49)
[2016-12-02] MEDS: LOSARTAN 50 MG TABLET. PO SCH (06:49)
[2016-12-02] MEDS: METOPROLOL SUCC 24HR ER 100 MG TAB.ER.24H. PO SCH (06:50)
[2016-12-02 07:20] VITALS: BP 147/93
[2016-12-02] MEDS: ALLOPURINOL 100 MG TABLET. PO SCH (08:40)
[2016-12-02] MEDS: FERROUS SULFATE 325 MG TABLET PO SCH (08:40)
[2016-12-02] MEDS: CYANOCOBALAMIN (VITAMIN B-12) 1,000 MCG TABLET. PO SCH (08:40)
[2016-12-02] MEDS: predniSONE 10 MG TABLET PO SCH (08:41)
[2016-12-02] MEDS: ZINC SULFATE 220 MG CAPSULE. PO SCH (08:41)
[2016-12-02] MEDS: ASCORBIC ACID 500 MG TABLET PO SCH ×2 (08:41→19:38)
[2016-12-02] MEDS: glyBURIDE 5 MG TABLET PO SCH (08:41)
[2016-12-02] MEDS: APIXABAN 2.5 MG TABLET PO SCH ×2 (08:41→19:38)
[2016-12-02] MEDS: risperiDONE 0.5 MG TABLET. PO SCH (08:41)
[2016-12-02] MEDS: SERTRALINE 50 MG TABLET. PO SCH (08:42)
[2016-12-02 16:38] VITALS: BP 163/90
[2016-12-02] MEDS: risperiDONE 1 MG TABLET. PO SCH (18:47)
[2016-12-02] MEDS: MIRTAZAPINE 15 MG TABLET PO SCH (19:38)
[2016-12-02] MEDS: MELATONIN 3 MG TABLET PO SCH (19:38)
--- NOTE | 2016-12-02 20:03 | PDOC ---
Exam Reynaldo Demential Exam: Reynaldo Note: Please also refer to the separate dictated note~for this date of service dictated separately.~Patient seen individually. Discussed the patient with Nursing staff reviewed the chart.~Reviewed interim history and current functioning. Reviewed vital signs,~Labs/ Radiology~and current medications noted below. Continue current treatment with the changes noted in the dictated addendum note Assessment: Vital Signs: Vital Signs Date Time Temp Pulse Resp B/P (MAP) Pulse Ox O2 Delivery O2 Flow Rate FiO2 12/02/16 16:38 97.3 83 20 163/90 (114) 99 12/01/16 05:37 Room Air I&O Intake and Output 12/02/16 07:00 Intake Total 1940 ml Balance 1940 ml Intake Oral 1940 ml # Bowel Movements 1 Labs: Laboratory Tests Test 12/02/16 07:31 Glucose (Fingerstick) 74 mg/dL (70-99) Current Medications: Meds: Current Medications Acetaminophen (Tylenol) 650 mg PRN Q6HRS PRN PO PAIN / TEMP; Start 11/19/16 at 04:45; Stop 11/19/16 at 17:39; Status DC Multi-Ingredient Ointment (Analgesic [place]) 1 rajesh PRN QID PRN TP MUSCLE PAIN; Start 11/19/16 at 04:45 Al Hydroxide/Mg Hydroxide (Mylanta Plus Xs) 15 ml PRN AFTMEALHC PRN PO DYSPEPSIA; Start 11/19/16 at 04:45 Magnesium Hydroxide (Milk Of Magnesia) 2,400 mg PRN QHS PRN PO CONSTIPATION Last administered on 11/29/16 20:25; Start 11/19/16 at 04:45 Sertraline HCl (Zoloft) 50 mg DAILY PO Last administered on 12/01/16 08:50; Start 11/19/16 at 09:00; Stop 12/01/16 at 13:35; Status DC Melatonin 3 mg QHS PO Last administered on 12/02/16 19:38; Start 11/19/16 at 21 :00 Allopurinol (Zyloprim) 100 mg DAILY PO Last administered on 12/02/16 08:40; Start 11/19/16 at 09:00 Metoprolol Succinate (Toprol Xl) 50 mg DAILY PO Last administered on 11/19/16 09:21; Start 11/19/16 at 09:00; Stop 11/19/16 at 17:14; Status DC Prednisone (Prednisone) 10 mg DAILY PO Last administered on 12/02/16 08:41; Start 11/19/16 at 09:00 Rivaroxaban (Xarelto) 15 mg DAILY PO Last administered on 11/20/16 07:50; Start 11/19/16 at 09:00; Stop 11/20/16 at 17:18; Status DC Spironolactone (Aldactone) 25 mg DAILY PO Last administered on 12/02/16 06:49 ; Start 11/19/16 at 09:00 Ascorbic Acid (Vitamin C) 500 mg BID PO Last administered on 12/02/16 19:38; Start 11/19/16 at 09:00 Glyburide (Diabeta) 2.5 mg DAILYWBKFT PO Last administered on 12/02/16 08:41; Start 11/19/16 at 08:00 Losartan Potassium (Cozaar) 100 mg DAILY PO Last administered on 12/02/16 06: 49; Start 11/19/16 at 09:00 Zinc Sulfate (Orazinc) 220 mg DAILY PO Last administered on 12/02/16 08:41; Start 11/19/16 at 09:00 Info (Anti-Coagulation Monitoring By Pharmacy) 1 each PRN DAILY PRN MC SEE COMMENTS; Start 11/19/16 at 04:45; Status Cancel Olanzapine (ZyPREXA ZYDIS) 2.5 mg PRN Q2HR PRN PO PSYCHOSIS; Start 11/19/16 at 05:15 Metoprolol Succinate (Toprol Xl) 50 mg 1X ONCE PO Last administered on 17:33; Start 11/19/16 at 17:15; Stop 11/19/16 at 17:16; Status DC Metoprolol Succinate (Toprol Xl) 100 mg DAILY PO Last administered on 06:50; Start 11/20/16 at 09:00 Acetaminophen (Tylenol) 650 mg PRN Q6HRS PRN PO PAIN / TEMP; Start 11/19/16 at 17:39 Mirtazapine (Remeron) 7.5 mg QHS PO Last administered on 11/20/16 19:54; Start 11/19/16 at 21:00; Stop 11/21/16 at 18:44; Status DC Risperidone (RisperDAL) 0.25 mg QHS PO Last administered on 11/23/16 20:43; Start 11/19/16 at 21:00; Stop 11/24/16 at 18:32; Status DC Apixaban (Eliquis) 2.5 mg BID PO Last administered on 12/02/16 19:38; Start at 21:00 Meclizine HCl (Antivert) 25 mg BID PO Last administered on 11/21/16 19:37; Start 11/20/16 at 21:00; Stop 11/22/16 at 19:05; Status DC Ferrous Sulfate (Feosol) 325 mg DAILYWBKFT PO Last administered on 12/02/16 08 :40; Start 11/21/16 at 08:00 Cyanocobalamin (Vitamin B-12) 1,000 mcg DAILY PO Last administered on 08:40; Start 11/21/16 at 09:00 Trazodone HCl (Desyrel) 50 mg QHS PRN PO INSOMNIA, MAY REPEAT X1 Last administered on 11/29/16 20:02; Start 11/21/16 at 18:45 Vitamin D (Vitamin D3) 50,000 unit WEEKLY PO Last administered on 11/30/16 09: 15; Start 11/23/16 at 09:00 Mirtazapine (Remeron) 15 mg QHS PO Last administered on 12/02/16 19:38; Start 11/22/16 at 21:00 Risperidone (RisperDAL) 0.375 mg DAILY@1900 PO Last administered on 11/25/16 19 :41; Start 11/24/16 at 19:00; Stop 11/26/16 at 15:03; Status DC Risperidone (RisperDAL) 0.5 mg DAILY@1900 PO ; Start 11/26/16 at 19:00; Stop 02/02 at 19:03; Status DC Risperidone (RisperDAL) 1 mg DAILY@1900 PO ; Start 11/27/16 at 19:00; Stop 11/27 at 19:00; Status DC Risperidone (RisperDAL) 0.5 mg DAILY@1900 PO Last administered on 11/29/16 18: 08; Start 11/27/16 at 19:00; Stop 11/29/16 at 19:24; Status DC Risperidone (RisperDAL) 0.5 mg DAILY PO Last administered on 12/02/16 08:41; Start 11/28/16 at 09:00 Risperidone (RisperDAL) 1 mg DAILY@1900 PO Last administered on 12/02/16 18:47 ; Start 11/30/16 at 19:00 Sertraline HCl (Zoloft) 75 mg DAILY PO Last administered on 12/02/16 08:42; Start 12/02/16 at 09:00 Active Scripts Active Reported Zinc Sulfate 220 Mg Tablet 220 Mg PO DAILY Micardis (Telmisartan) 40 Mg Tablet 40 Mg PO BID Aldactone (Spironolactone) 25 Mg Tablet 25 Mg PO DAILY Zoloft (Sertraline Hcl) 50 Mg Tablet 50 Mg PO DAILY Xarelto (Rivaroxaban) 15 Mg Tablet 15 Mg PO DAILY Prednisone 10 Mg Tablet 10 Mg PO DAILY Take 3 tablets by mouth twice a day for 3 days, then take 2 tablets by mouth twice a day for 3 days, then take 1 tablet by mouth twice a day for 3 days, then take 1 tablet by mouth daily x 3 days, then stop. Metoprolol Succinate ( Xl ) (Metoprolol Succinate) 50 Mg Tab.er.24h 50 Mg PO DAILY Glyburide 2.5 Mg Tablet 2.5 Mg PO DAILY Melatonin 3 Mg Tablet 3 Mg PO QHS Vitamin C (Ascorbate Calcium) 500 Mg Tablet 500 Mg PO BID Allopurinol 100 Mg Tablet 100 Mg PO DAILY Tylenol (Acetaminophen) 325 Mg Tablet 325 Mg PO PRN Q4HRS PRN Diagnosis: Problems: (1) Anxiety disorder (2) Psychosis, atypical (3) Impulse control disorder JANEY LAI MD Dec 02, 2016 20:03
--- NOTE | 2016-12-02 22:13 | OP ---
DATE OF SURGERY: 12/01/2016 PSYCHIATRIC PROGRESS NOTE This is a late entry of 12/01/2016 covers elements not covered in my initial note of 12/01/2016. I met with the patient on the evening of 12/01/2016. Per nursing staff, the patient has done better, still remains paranoid and was telling a staff member that he believes his is still having an affair with 2 guys. He does not share this me as I questioned him on it closely. REVIEW OF SYSTEMS: Ambulation impaired with walker. No CV, , pulmonary, eye system symptoms on review. Reliability is fair. MENTAL STATUS EXAM: Reasonably oriented. Speech is coherent, abstraction fair, computation somewhat impaired, language function intact, attention span short. Mood and affect showing some improvement. Labs reviewed. Impression is unchanged from initial note. PLAN: Continue current psychotropics and Risperdal was recently increased. The patient states he slipped to the floor this morning, but no injuries were noted. Staff have not noticed this, however. We will continue to monitor this. JANEY LAI MD DR: LUZ/nila JOB#: [id number] / [id number]
[2016-12-03 06:00] VITALS: BP 155/89
[2016-12-03] MEDS: METOPROLOL SUCC 24HR ER 100 MG TAB.ER.24H. PO SCH (09:01)
[2016-12-03] MEDS: SPIRONOLACTONE 25 MG TABLET PO SCH (09:01)
[2016-12-03] MEDS: ZINC SULFATE 220 MG CAPSULE. PO SCH (09:01)
[2016-12-03] MEDS: LOSARTAN 50 MG TABLET. PO SCH (09:02)
[2016-12-03] MEDS: ASCORBIC ACID 500 MG TABLET PO SCH ×2 (09:03→20:09)
[2016-12-03] MEDS: CYANOCOBALAMIN (VITAMIN B-12) 1,000 MCG TABLET. PO SCH (09:03)
[2016-12-03] MEDS: SERTRALINE 50 MG TABLET. PO SCH (09:03)
[2016-12-03] MEDS: glyBURIDE 5 MG TABLET PO SCH (09:03)
[2016-12-03] MEDS: APIXABAN 2.5 MG TABLET PO SCH ×2 (09:03→20:09)
[2016-12-03] MEDS: ALLOPURINOL 100 MG TABLET. PO SCH (09:04)
[2016-12-03] MEDS: predniSONE 10 MG TABLET PO SCH (09:04)
[2016-12-03] MEDS: FERROUS SULFATE 325 MG TABLET PO SCH (09:04)
[2016-12-03] MEDS: risperiDONE 0.5 MG TABLET. PO SCH (09:04)
[2016-12-03] MEDS ORDERED: NYSTATIN TOPICAL POWDER 15GM BOTTLE. TP PRN (09:15)
[2016-12-03 16:22] VITALS: BP 107/71
[2016-12-03] MEDS: risperiDONE 1 MG TABLET. PO SCH (17:57)
--- NOTE | 2016-12-03 20:01 | PDOC ---
Exam Reynaldo Demential Exam: Reynaldo Note: Please also refer to the separate dictated note~for this date of service dictated separately.~Patient seen individually. Discussed the patient with Nursing staff reviewed the chart.~Reviewed interim history and current functioning. Reviewed vital signs,~Labs/ Radiology~and current medications noted below. Continue current treatment with the changes noted in the dictated addendum note Assessment: Vital Signs: Vital Signs Date Time Temp Pulse Resp B/P (MAP) Pulse Ox O2 Delivery O2 Flow Rate FiO2 12/03/16 16:22 98.1 81 18 107/71 (83) 95 12/01/16 05:37 Room Air I&O Intake and Output 12/03/16 07:00 Intake Total 1440 ml Balance 1440 ml Intake Oral 1440 ml # Voids 1 Labs: Laboratory Tests Test 12/03/16 07:15 Glucose (Fingerstick) 92 mg/dL (70-99) Current Medications: Meds: Current Medications Acetaminophen (Tylenol) 650 mg PRN Q6HRS PRN PO PAIN / TEMP; Start 11/19/16 at 04:45; Stop 11/19/16 at 17:39; Status DC Multi-Ingredient Ointment (Analgesic [place]) 1 rajesh PRN QID PRN TP MUSCLE PAIN; Start 11/19/16 at 04:45 Al Hydroxide/Mg Hydroxide (Mylanta Plus Xs) 15 ml PRN AFTMEALHC PRN PO DYSPEPSIA; Start 11/19/16 at 04:45 Magnesium Hydroxide (Milk Of Magnesia) 2,400 mg PRN QHS PRN PO CONSTIPATION Last administered on 11/29/16 20:25; Start 11/19/16 at 04:45 Sertraline HCl (Zoloft) 50 mg DAILY PO Last administered on 12/01/16 08:50; Start 11/19/16 at 09:00; Stop 12/01/16 at 13:35; Status DC Melatonin 3 mg QHS PO Last administered on 12/02/16 19:38; Start 11/19/16 at 21 :00 Allopurinol (Zyloprim) 100 mg DAILY PO Last administered on 12/03/16 09:04; Start 11/19/16 at 09:00 Metoprolol Succinate (Toprol Xl) 50 mg DAILY PO Last administered on 11/19/16 09:21; Start 11/19/16 at 09:00; Stop 11/19/16 at 17:14; Status DC Prednisone (Prednisone) 10 mg DAILY PO Last administered on 12/03/16 09:04; Start 11/19/16 at 09:00 Rivaroxaban (Xarelto) 15 mg DAILY PO Last administered on 11/20/16 07:50; Start 11/19/16 at 09:00; Stop 11/20/16 at 17:18; Status DC Spironolactone (Aldactone) 25 mg DAILY PO Last administered on 12/03/16 09:01 ; Start 11/19/16 at 09:00 Ascorbic Acid (Vitamin C) 500 mg BID PO Last administered on 12/03/16 09:03; Start 11/19/16 at 09:00 Glyburide (Diabeta) 2.5 mg DAILYWBKFT PO Last administered on 12/03/16 09:03; Start 11/19/16 at 08:00 Losartan Potassium (Cozaar) 100 mg DAILY PO Last administered on 12/03/16 09: 02; Start 11/19/16 at 09:00 Zinc Sulfate (Orazinc) 220 mg DAILY PO Last administered on 12/03/16 09:01; Start 11/19/16 at 09:00 Info (Anti-Coagulation Monitoring By Pharmacy) 1 each PRN DAILY PRN MC SEE COMMENTS; Start 11/19/16 at 04:45; Status Cancel Olanzapine (ZyPREXA ZYDIS) 2.5 mg PRN Q2HR PRN PO PSYCHOSIS; Start 11/19/16 at 05:15 Metoprolol Succinate (Toprol Xl) 50 mg 1X ONCE PO Last administered on 17:33; Start 11/19/16 at 17:15; Stop 11/19/16 at 17:16; Status DC Metoprolol Succinate (Toprol Xl) 100 mg DAILY PO Last administered on 09:01; Start 11/20/16 at 09:00 Acetaminophen (Tylenol) 650 mg PRN Q6HRS PRN PO PAIN / TEMP; Start 11/19/16 at 17:39 Mirtazapine (Remeron) 7.5 mg QHS PO Last administered on 11/20/16 19:54; Start 11/19/16 at 21:00; Stop 11/21/16 at 18:44; Status DC Risperidone (RisperDAL) 0.25 mg QHS PO Last administered on 11/23/16 20:43; Start 11/19/16 at 21:00; Stop 11/24/16 at 18:32; Status DC Apixaban (Eliquis) 2.5 mg BID PO Last administered on 12/03/16 09:03; Start at 21:00 Meclizine HCl (Antivert) 25 mg BID PO Last administered on 11/21/16 19:37; Start 11/20/16 at 21:00; Stop 11/22/16 at 19:05; Status DC Ferrous Sulfate (Feosol) 325 mg DAILYWBKFT PO Last administered on 12/03/16 09 :04; Start 11/21/16 at 08:00 Cyanocobalamin (Vitamin B-12) 1,000 mcg DAILY PO Last administered on 09:03; Start 11/21/16 at 09:00 Trazodone HCl (Desyrel) 50 mg QHS PRN PO INSOMNIA, MAY REPEAT X1 Last administered on 11/29/16 20:02; Start 11/21/16 at 18:45 Vitamin D (Vitamin D3) 50,000 unit WEEKLY PO Last administered on 11/30/16 09: 15; Start 11/23/16 at 09:00 Mirtazapine (Remeron) 15 mg QHS PO Last administered on 12/02/16 19:38; Start 11/22/16 at 21:00 Risperidone (RisperDAL) 0.375 mg DAILY@1900 PO Last administered on 11/25/16 19 :41; Start 11/24/16 at 19:00; Stop 11/26/16 at 15:03; Status DC Risperidone (RisperDAL) 0.5 mg DAILY@1900 PO ; Start 11/26/16 at 19:00; Stop 02/02 at 19:03; Status DC Risperidone (RisperDAL) 1 mg DAILY@1900 PO ; Start 11/27/16 at 19:00; Stop 11/27 at 19:00; Status DC Risperidone (RisperDAL) 0.5 mg DAILY@1900 PO Last administered on 11/29/16 18: 08; Start 11/27/16 at 19:00; Stop 11/29/16 at 19:24; Status DC Risperidone (RisperDAL) 0.5 mg DAILY PO Last administered on 12/03/16 09:04; Start 11/28/16 at 09:00 Risperidone (RisperDAL) 1 mg DAILY@1900 PO Last administered on 12/03/16 17:57 ; Start 11/30/16 at 19:00 Sertraline HCl (Zoloft) 75 mg DAILY PO Last administered on 12/03/16 09:03; Start 12/02/16 at 09:00 Nystatin (Nystop) 1 rajesh PRN BID PRN TP RASH; Start 12/03/16 at 09:15 Active Scripts Active Reported Zinc Sulfate 220 Mg Tablet 220 Mg PO DAILY Micardis (Telmisartan) 40 Mg Tablet 40 Mg PO BID Aldactone (Spironolactone) 25 Mg Tablet 25 Mg PO DAILY Zoloft (Sertraline Hcl) 50 Mg Tablet 50 Mg PO DAILY Xarelto (Rivaroxaban) 15 Mg Tablet 15 Mg PO DAILY Prednisone 10 Mg Tablet 10 Mg PO DAILY Take 3 tablets by mouth twice a day for 3 days, then take 2 tablets by mouth twice a day for 3 days, then take 1 tablet by mouth twice a day for 3 days, then take 1 tablet by mouth daily x 3 days, then stop. Metoprolol Succinate ( Xl ) (Metoprolol Succinate) 50 Mg Tab.er.24h 50 Mg PO DAILY Glyburide 2.5 Mg Tablet 2.5 Mg PO DAILY Melatonin 3 Mg Tablet 3 Mg PO QHS Vitamin C (Ascorbate Calcium) 500 Mg Tablet 500 Mg PO BID Allopurinol 100 Mg Tablet 100 Mg PO DAILY Tylenol (Acetaminophen) 325 Mg Tablet 325 Mg PO PRN Q4HRS PRN Diagnosis: Problems: (1) Anxiety disorder (2) Psychosis, atypical (3) Impulse control disorder JANEY LAI MD Dec 03, 2016 20:01
[2016-12-03] MEDS: traZODone 50 MG TABLET. PO PRN (20:09)
[2016-12-03] MEDS: MELATONIN 3 MG TABLET PO SCH (20:09)
[2016-12-03] MEDS: MIRTAZAPINE 15 MG TABLET PO SCH (20:09)
--- NOTE | 2016-12-04 00:02 | PN ---
DATE: 12/02/2016 This is a late entry for 12/02/2016 and covers elements not covered in my initial note of 12/02/2016. I met with the patient individually evening of 12/02/2016. He states he again fell early childhood. Nursing staff did not observe this and I have asked the staff to be around the patient when he wakes up in the morning to check on this. He states he has not been thinking that his is having an affair and feels this is an improvement. REVIEW OF SYSTEMS: Ambulation impaired with a walker. No CV, , pulmonary, eye, ENT system symptoms on review. MENTAL STATUS EXAM: Reasonably oriented. Speech is coherent, abstraction fair, slightly hard of hearing. Computation is somewhat impaired, language function intact, attention span short. Mood and affect, lability is improved, less psychotic. No suicidal or homicidal ideation. LABORATORY DATA: Reviewed. IMPRESSION: Unchanged from initial note. PLAN: Continue current psychotropics, reviewed drug interactions, risk/benefit ratio favors no further changes. JANEY LAI MD DR: LUZ/nila JOB#: [id number] / [id number]
[2016-12-04 06:19] VITALS: BP 167/82
[2016-12-04] MEDS: ZINC SULFATE 220 MG CAPSULE. PO SCH (08:13)
[2016-12-04] MEDS: SERTRALINE 50 MG TABLET. PO SCH (08:14)
[2016-12-04] MEDS: ALLOPURINOL 100 MG TABLET. PO SCH (08:14)
[2016-12-04] MEDS: LOSARTAN 50 MG TABLET. PO SCH (08:14)
[2016-12-04] MEDS: predniSONE 10 MG TABLET PO SCH (08:14)
[2016-12-04] MEDS: CYANOCOBALAMIN (VITAMIN B-12) 1,000 MCG TABLET. PO SCH (08:15)
[2016-12-04] MEDS: risperiDONE 0.5 MG TABLET. PO SCH (08:15)
[2016-12-04] MEDS: glyBURIDE 5 MG TABLET PO SCH (08:15)
[2016-12-04] MEDS: APIXABAN 2.5 MG TABLET PO SCH ×2 (08:15→19:41)
[2016-12-04] MEDS: ASCORBIC ACID 500 MG TABLET PO SCH ×2 (08:15→19:41)
[2016-12-04] MEDS: FERROUS SULFATE 325 MG TABLET PO SCH (08:15)
[2016-12-04] MEDS: SPIRONOLACTONE 25 MG TABLET PO SCH (08:15)
[2016-12-04] MEDS: METOPROLOL SUCC 24HR ER 100 MG TAB.ER.24H. PO SCH (08:18)
[2016-12-04 16:49] VITALS: BP 120/64
[2016-12-04] MEDS: risperiDONE 1 MG TABLET. PO SCH (17:58)
[2016-12-04] MEDS: MELATONIN 3 MG TABLET PO SCH (19:41)
[2016-12-04] MEDS: MIRTAZAPINE 15 MG TABLET PO SCH (19:41)
[2016-12-04] MEDS: traZODone 50 MG TABLET. PO PRN (19:41)
--- NOTE | 2016-12-04 20:07 | PDOC ---
Exam Reynaldo Demential Exam: Reynaldo Note: Please also refer to the separate dictated note~for this date of service dictated separately.~Patient seen individually. Discussed the patient with Nursing staff reviewed the chart.~Reviewed interim history and current functioning. Reviewed vital signs,~Labs/ Radiology~and current medications noted below. Continue current treatment with the changes noted in the dictated addendum note Assessment: Vital Signs: Vital Signs Date Time Temp Pulse Resp B/P (MAP) Pulse Ox O2 Delivery O2 Flow Rate FiO2 12/04/16 16:49 98.3 80 18 120/64 (82) 97 12/04/16 06:19 Room Air I&O Intake and Output 12/04/16 07:00 Intake Total 1720 ml Balance 1720 ml Intake Oral 1720 ml # Voids 1 Labs: Laboratory Tests Test 12/04/16 07:31 Glucose (Fingerstick) 78 mg/dL (70-99) Current Medications: Meds: Current Medications Acetaminophen (Tylenol) 650 mg PRN Q6HRS PRN PO PAIN / TEMP; Start 11/19/16 at 04:45; Stop 11/19/16 at 17:39; Status DC Multi-Ingredient Ointment (Analgesic [place]) 1 rajesh PRN QID PRN TP MUSCLE PAIN; Start 11/19/16 at 04:45 Al Hydroxide/Mg Hydroxide (Mylanta Plus Xs) 15 ml PRN AFTMEALHC PRN PO DYSPEPSIA; Start 11/19/16 at 04:45 Magnesium Hydroxide (Milk Of Magnesia) 2,400 mg PRN QHS PRN PO CONSTIPATION Last administered on 11/29/16 20:25; Start 11/19/16 at 04:45 Sertraline HCl (Zoloft) 50 mg DAILY PO Last administered on 12/01/16 08:50; Start 11/19/16 at 09:00; Stop 12/01/16 at 13:35; Status DC Melatonin 3 mg QHS PO Last administered on 12/04/16 19:41; Start 11/19/16 at 21 :00 Allopurinol (Zyloprim) 100 mg DAILY PO Last administered on 12/04/16 08:14; Start 11/19/16 at 09:00 Metoprolol Succinate (Toprol Xl) 50 mg DAILY PO Last administered on 11/19/16 09:21; Start 11/19/16 at 09:00; Stop 11/19/16 at 17:14; Status DC Prednisone (Prednisone) 10 mg DAILY PO Last administered on 12/04/16 08:14; Start 11/19/16 at 09:00 Rivaroxaban (Xarelto) 15 mg DAILY PO Last administered on 11/20/16 07:50; Start 11/19/16 at 09:00; Stop 11/20/16 at 17:18; Status DC Spironolactone (Aldactone) 25 mg DAILY PO Last administered on 12/04/16 08:15 ; Start 11/19/16 at 09:00 Ascorbic Acid (Vitamin C) 500 mg BID PO Last administered on 12/04/16 19:41; Start 11/19/16 at 09:00 Glyburide (Diabeta) 2.5 mg DAILYWBKFT PO Last administered on 12/04/16 08:15; Start 11/19/16 at 08:00 Losartan Potassium (Cozaar) 100 mg DAILY PO Last administered on 12/04/16 08: 14; Start 11/19/16 at 09:00 Zinc Sulfate (Orazinc) 220 mg DAILY PO Last administered on 12/04/16 08:13; Start 11/19/16 at 09:00 Info (Anti-Coagulation Monitoring By Pharmacy) 1 each PRN DAILY PRN MC SEE COMMENTS; Start 11/19/16 at 04:45; Status Cancel Olanzapine (ZyPREXA ZYDIS) 2.5 mg PRN Q2HR PRN PO PSYCHOSIS; Start 11/19/16 at 05:15 Metoprolol Succinate (Toprol Xl) 50 mg 1X ONCE PO Last administered on 17:33; Start 11/19/16 at 17:15; Stop 11/19/16 at 17:16; Status DC Metoprolol Succinate (Toprol Xl) 100 mg DAILY PO Last administered on 08:18; Start 11/20/16 at 09:00 Acetaminophen (Tylenol) 650 mg PRN Q6HRS PRN PO PAIN / TEMP; Start 11/19/16 at 17:39 Mirtazapine (Remeron) 7.5 mg QHS PO Last administered on 11/20/16 19:54; Start 11/19/16 at 21:00; Stop 11/21/16 at 18:44; Status DC Risperidone (RisperDAL) 0.25 mg QHS PO Last administered on 11/23/16 20:43; Start 11/19/16 at 21:00; Stop 11/24/16 at 18:32; Status DC Apixaban (Eliquis) 2.5 mg BID PO Last administered on 12/04/16 19:41; Start at 21:00 Meclizine HCl (Antivert) 25 mg BID PO Last administered on 11/21/16 19:37; Start 11/20/16 at 21:00; Stop 11/22/16 at 19:05; Status DC Ferrous Sulfate (Feosol) 325 mg DAILYWBKFT PO Last administered on 12/04/16 08 :15; Start 11/21/16 at 08:00 Cyanocobalamin (Vitamin B-12) 1,000 mcg DAILY PO Last administered on 08:15; Start 11/21/16 at 09:00 Trazodone HCl (Desyrel) 50 mg QHS PRN PO INSOMNIA, MAY REPEAT X1 Last administered on 12/04/16 19:41; Start 11/21/16 at 18:45 Vitamin D (Vitamin D3) 50,000 unit WEEKLY PO Last administered on 11/30/16 09: 15; Start 11/23/16 at 09:00 Mirtazapine (Remeron) 15 mg QHS PO Last administered on 12/04/16 19:41; Start 11/22/16 at 21:00 Risperidone (RisperDAL) 0.375 mg DAILY@1900 PO Last administered on 11/25/16 19 :41; Start 11/24/16 at 19:00; Stop 11/26/16 at 15:03; Status DC Risperidone (RisperDAL) 0.5 mg DAILY@1900 PO ; Start 11/26/16 at 19:00; Stop 02/02 at 19:03; Status DC Risperidone (RisperDAL) 1 mg DAILY@1900 PO ; Start 11/27/16 at 19:00; Stop 11/27 at 19:00; Status DC Risperidone (RisperDAL) 0.5 mg DAILY@1900 PO Last administered on 11/29/16 18: 08; Start 11/27/16 at 19:00; Stop 11/29/16 at 19:24; Status DC Risperidone (RisperDAL) 0.5 mg DAILY PO Last administered on 12/04/16 08:15; Start 11/28/16 at 09:00 Risperidone (RisperDAL) 1 mg DAILY@1900 PO Last administered on 12/04/16 17:58 ; Start 11/30/16 at 19:00 Sertraline HCl (Zoloft) 75 mg DAILY PO Last administered on 12/04/16 08:14; Start 12/02/16 at 09:00 Nystatin (Nystop) 1 rajesh PRN BID PRN TP RASH; Start 12/03/16 at 09:15 Active Scripts Active Reported Zinc Sulfate 220 Mg Tablet 220 Mg PO DAILY Micardis (Telmisartan) 40 Mg Tablet 40 Mg PO BID Aldactone (Spironolactone) 25 Mg Tablet 25 Mg PO DAILY Zoloft (Sertraline Hcl) 50 Mg Tablet 50 Mg PO DAILY Xarelto (Rivaroxaban) 15 Mg Tablet 15 Mg PO DAILY Prednisone 10 Mg Tablet 10 Mg PO DAILY Take 3 tablets by mouth twice a day for 3 days, then take 2 tablets by mouth twice a day for 3 days, then take 1 tablet by mouth twice a day for 3 days, then take 1 tablet by mouth daily x 3 days, then stop. Metoprolol Succinate ( Xl ) (Metoprolol Succinate) 50 Mg Tab.er.24h 50 Mg PO DAILY Glyburide 2.5 Mg Tablet 2.5 Mg PO DAILY Melatonin 3 Mg Tablet 3 Mg PO QHS Vitamin C (Ascorbate Calcium) 500 Mg Tablet 500 Mg PO BID Allopurinol 100 Mg Tablet 100 Mg PO DAILY Tylenol (Acetaminophen) 325 Mg Tablet 325 Mg PO PRN Q4HRS PRN Diagnosis: Problems: (1) Anxiety disorder (2) Psychosis, atypical (3) Impulse control disorder JANEY LAI MD Dec 04, 2016 20:06
--- NOTE | 2016-12-04 21:06 | PN ---
DATE: 11/21/2016 SUBJECTIVE: The patient continues to complain of dizziness, described as unsteadiness and sometimes spinning. He denies any falls. Taking magnesium has not changed a lot of his dizziness. However, he denies any new medical or neurological complaints. OBJECTIVE: GENERAL: Obese white male, not in acute distress. He weighs 242 pounds. VITAL SIGNS: Stable, blood pressure 154/90, respiratory rate 18, pulse is 80 and regular, temperature is 97.6, oxygen saturation 100% on room air. HEENT: Normocephalic, atraumatic, otherwise unremarkable. NECK: Supple. Negative for carotid bruit, lymphadenopathy or thyromegaly. LUNGS: Clear to A and P. CARDIOVASCULAR: Regular rate and rhythm, normal S1, S2. ABDOMEN: Soft. Bowel sounds positive. EXTREMITIES: Negative for cyanosis, clubbing or pitting edema. NEUROLOGICAL EXAM: Mental Status: The patient is alert and oriented x 3. Speech is fluent. There is no language dysfunction. The patient recalls 2/3 immediately and after 1-3 minutes. Judgment and abstract thinking are normal. The patient denies hallucination or delusion. Cranial nerves are grossly intact except for hearing loss, more prominent on the right side and represent nystagmus at 2/3 beats. Motor Exam: No focal muscle bulk was seen. The tone is normal. The strength is 5/5 throughout. Sensory examination reveals diminished pinprick and light touch senses over the left face and upper and lower extremities. Deep tendon reflexes were symmetric and hypoactive with absent Achilles responses. Gait: The patient uses a walker for ambulation. However, he is unsteady and he has tendency to fall. IMPRESSION: 1. 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 2. Multiple medical problems include hypertension, hyperlipidemia, diabetes mellitus, anemia of iron deficiency. 3. Multiple psychiatric problems include anxiety and atypical psychosis. RECOMMENDATIONS: 1. We will continue with meclizine at 12.5/25 mg 2-3 times daily for few days; however, the patient would not benefit from it at this time, but it will reduce the anxiety associated with dizziness. 2. Continue with current medical and psychiatric care. 3. Physical therapy evaluation and treatment as needed. M Angel ROBB MD DR: Lauren JOB#: [id number] / [id number]
--- NOTE | 2016-12-04 21:16 | PN ---
DATE: 11/23/2016 SUBJECTIVE: The patient denies any new medical neurological complaints. He continues to have an unsteady gait, especially when he changes body positions quickly from sitting to standing up, he has tendency to fall, but he has not had any fall yet. The patient stated his meclizine has made him more drowsy and a dizzy; however, he is on other psychotropics and melatonin. OBJECTIVE: GENERAL: Obese white male, not in acute distress. VITAL SIGNS: Blood pressure 159/82, respiratory rate 20, pulse is 67, oxygen saturation is 99%, and temperature 98.1. HEENT: Normocephalic, atraumatic, otherwise unremarkable. NECK: Supple. Negative for carotid bruit, lymphadenopathy or thyromegaly. LUNGS: Clear to A and P. CARDIOVASCULAR: Regular rate and rhythm, normal S1 and S2. There is no S3, S4 or murmur. ABDOMEN: Soft. Bowel sounds positive. EXTREMITIES: Negative for cyanosis, clubbing or pitting edema. NEUROLOGICAL EXAM: Mental Status: The patient is alert and oriented x 3. Speech is fluent. There is no language dysfunction. Cranial nerves are intact except for bilateral hearing loss, more prominent on the right side and positive for nystagmus at 1-2 feet. Motor examination revealed focal muscle bulk was seen. The tone was normal. The strength was 5/5 throughout. Sensory examination revealed diminished pinprick and light touch senses, more prominent on the left face, upper and lower extremities. Deep tendon reflexes were symmetric and hypoactive with absent Achilles responses. Gait: The patient uses a walker for ambulation. The patient has abnormal [id number] bilaterally. IMPRESSION: 1. Constant dizzy spell described as unsteadiness and tendency to fall, status post craniotomy and removal of labyrinthine tumor. 2. History of cerebellar infarct. 3. Multiple medical problems include diabetes mellitus, hypertension and hyperlipidemia. 4. Multiple psychiatric problems include anxiety disorder. RECOMMENDATIONS: Continue with current medical management. M Angel ROBB MD DR: TAMEKA/nila JOB#: [id number] / [id number]
--- NOTE | 2016-12-04 21:33 | PN ---
DATE: 11/25/2016 REFERRING PHYSICIAN: Dr. Hawkins. SUBJECTIVE: The patient continues to have unsteady gait and tendency to fall. However, he uses a walker all the time. It was reported that the patient has been paranoid and somewhat agitated. He denies hallucinations, but he stated he thought his has external marital affair. He denies any visual disturbances, nausea, vomiting, chest pain, shortness of breath, or palpitations. OBJECTIVE: GENERAL: Moderately obese white male, not in acute distress. VITAL SIGNS: Blood pressure 164/82, respiratory rate 18, pulse is 87, temperature 97.9, oxygen saturation 99% on room air. HEENT: Normocephalic, status post right craniotomy. NECK: Supple, negative for carotid bruit, lymphadenopathy or thyromegaly. LUNGS: Clear to A and P. CARDIOVASCULAR: Regular rate and rhythm, normal S1 and S2. ABDOMEN: Soft, bowel sounds positive. EXTREMITIES: Negative for cyanosis, clubbing or pitting edema. NEUROLOGIC: Mental Status: The patient is alert and oriented x 3. Speech is fluent. There is no language dysfunction. The patient denies hallucinations. Cranial nerves are intact except for nystagmus on horizontal gait and decreased hearing bilaterally, more prominent on the right side. Motor: No focal muscle bulk was seen. The tone is normal. The strength was 5/5 throughout. Sensory examination revealed diminished pinprick and light touch senses over the left face and lower extremities. Deep tendon reflexes were symmetric and hypoactive with absent Achilles responses. Gait: The patient uses a walker for ambulation. LABORATORY DATA: CBC revealed white blood cells of 6000, hemoglobin 12.1, hematocrit 37.2, platelet count 166,000. Chemistry reveals sodium of 146, potassium 4.2, chloride 110. BUN 28, creatinine 1.5, glucose is 131, calcium is 9.6. Urinalysis from 11/23/2016 revealed no evidence of urinary tract infections. Recent RPR is nonreactive. IMPRESSION: 1. Constant unsteady gait and dizziness probably due to previous craniotomy and removal of labyrinthine tumor. 2. Multiple medical problems include hypertension, hyperlipidemia, diabetes mellitus. 3. Probably dehydration with renal insufficiency, increased serum creatinine and urine creatinine. 4. Anxiety disorders and intermittent hallucinations. 5. History of cerebellar infarct. RECOMMENDATIONS: Continue with current medical management. M Angel ROBB MD DR: Lauren JOB#: [id number] / [id number]
--- NOTE | 2016-12-04 23:43 | PN ---
DATE: 11/28/2016 SUBJECTIVE: The patient continues to complain of unsteady stance and dizziness and has tendency to fall. He mentioned he did fall once yesterday. He denies any new medical or neurological complaints. He denies headaches, visual disturbances, nausea, vomiting, chest pain, shortness of breath, or palpitation. The patient has had intermittent hallucinations. His dizziness is more apparent at night and when he tries to go to the bathroom. History of atrial fibrillation. OBJECTIVE: GENERAL: Moderately obese white male, not in acute distress. VITAL SIGNS: Blood pressure 135/84, respiratory rate 16, pulse is 73 and regular, temperature 97.8, oxygen saturation 98% on room air. HEENT: Normocephalic, atraumatic except for old right craniotomy to remove ____ tumor. NECK: Supple. Negative for carotid bruit, lymphadenopathy or thyromegaly. LUNGS: Clear to A and P. CARDIOVASCULAR: Irregular rhythm, normal S1, S2. ABDOMEN: Soft. Bowel sounds positive. EXTREMITIES: Negative for cyanosis, clubbing or pitting edema. NEUROLOGICAL EXAM: Mental Status: The patient is alert and oriented x 3. Speech is fluent. There is no language dysfunction. Memory, judgment, and abstract thinkings are fair. The patient denies hallucination or delusion. Cranial nerves are intact except for bilateral hearing loss, more prominent on the left side and ____. Motor Examination: No focal muscle bulk was seen. The tone was normal. The strength was 5/5 throughout. Sensory examination revealed diminished pinprick and light touch senses over the left face and upper and lower extremities. Deep tendon reflexes were symmetric and hypoactive with absent Achilles responses. Gait: The patient uses a walker for ambulation. IMPRESSION: 1. Status post right craniotomy and removal of ____ benign tumor. 2. Multiple medical problems include hypertension, hyperlipidemia, diabetes mellitus, gout, history of stroke. 3. Anxiety and intermittent hallucinations. RECOMMENDATIONS: 1. Continue with current management. 2. Physical therapy as tolerated. 3. Continue with current psychiatric care. M Angel ROBB MD DR: TAMEKA/nila JOB#: [id number] / [id number]
--- NOTE | 2016-12-05 03:57 | PN ---
DATE: 12/03/2016 PSYCHIATRIC PROGRESS NOTE This is a late entry for 12/03/2016, covers elements not covered in my initial note of 12/03/2016. SUBJECTIVE: The patient was staffed at treatment team meeting with the entire team morning of 12/03/2016, seen individually evening of 12/03/2016. He slept 6 hours previous evening, did not have a fall. This morning ____ woke up. He states he does not believe his is having an affair, but we will have to reassess and sometimes he does not share things if he has been specifically questioned on that as I was doing the evening of 12/03/2016. REVIEW OF SYSTEMS: Ambulation impaired with a walker. No CV, , pulmonary, eye, ENT system symptoms on review. MENTAL STATUS EXAM: Oriented to himself and situation. Speech is coherent, slightly hard of hearing. Abstraction fair, computation impaired, language function intact, attention span short, Mood and affect appeared improved. LABORATORY DATA: Reviewed. IMPRESSION: Unchanged from initial note. PLAN: Continue Risperdal 1 mg daily, melatonin, Zoloft, Remeron, together with Zyprexa p.r.n., trazodone p.r.n. Adjust further as clinically indicated. Reviewed drug interactions, risk/benefit ratio favors no further change as of now. MAN Ainsley LAI MD DR: LUZ/nila JOB#: [id number] / [id number]
[2016-12-05 06:18] VITALS: BP 166/96
[2016-12-05] MEDS: SPIRONOLACTONE 25 MG TABLET PO SCH (07:45)
[2016-12-05] MEDS: FERROUS SULFATE 325 MG TABLET PO SCH (07:45)
[2016-12-05] MEDS: glyBURIDE 5 MG TABLET PO SCH (07:45)
[2016-12-05] MEDS: ZINC SULFATE 220 MG CAPSULE. PO SCH (07:46)
[2016-12-05] MEDS: APIXABAN 2.5 MG TABLET PO SCH ×2 (07:46→20:51)
[2016-12-05] MEDS: LOSARTAN 50 MG TABLET. PO SCH (07:46)
[2016-12-05] MEDS: risperiDONE 0.5 MG TABLET. PO SCH (07:47)
[2016-12-05] MEDS: predniSONE 10 MG TABLET PO SCH (07:47)
[2016-12-05] MEDS: METOPROLOL SUCC 24HR ER 100 MG TAB.ER.24H. PO SCH (07:54)
[2016-12-05] MEDS: CYANOCOBALAMIN (VITAMIN B-12) 1,000 MCG TABLET. PO SCH (07:55)
[2016-12-05] MEDS: SERTRALINE 50 MG TABLET. PO SCH (07:55)
[2016-12-05] MEDS: ASCORBIC ACID 500 MG TABLET PO SCH ×2 (07:55→20:51)
[2016-12-05] MEDS: ALLOPURINOL 100 MG TABLET. PO SCH (07:55)
[2016-12-05 08:25] LABS: BASO # 0.1 x10^3/uL (0.0-0.2); BASO % 1 % (0-3); EOS # 0.2 x10^3/uL (0.0-0.7); EOS % 2 % (0-3); HEMATOCRIT 38.7 % (39.0-53.0); HEMOGLOBIN 12.5 g/dL (13.0-17.5); LYMPH # 1.2 x10^3/uL (1.0-4.8); LYMPH % 17 % (24-48); MEAN CORPUSCULAR HEMOGLOBIN 30 pg (25-35); MEAN CORPUSCULAR HGB CONC 32 g/dL (31-37); MEAN CORPUSCULAR VOLUME 92 fL (79-100); MONO # 0.4 x10^3/uL (0.0-1.1); MONO % 6 % (0-9); NEUT # 5.4 x10^3uL (1.8-7.7); NEUT % 74 % (31-73); PLATELET COUNT 169 x10^3/uL (140-400); RED BLOOD COUNT 4.22 x10^6/uL (4.30-5.70); RED CELL DISTRIBUTION WIDTH 14.5 % (11.5-14.5); WHITE BLOOD COUNT 7.3 x10^3/uL (4.0-11.0)
[2016-12-05 08:32] LABS: ALBUMIN 3.4 g/dL (3.4-5.0); ALBUMIN/GLOBULIN RATIO 1.2 (1.0-1.7); CALCIUM 9.5 mg/dL (8.5-10.1); CREATININE 1.6 mg/dL (0.7-1.3); GFR 41.5; POTASSIUM 4.4 mmol/L (3.5-5.1); TOTAL BILIRUBIN 0.3 mg/dL (0.2-1.0); TOTAL PROTEIN 6.3 g/dL (6.4-8.2)
[2016-12-05 15:55] VITALS: BP 116/72
[2016-12-05] MEDS: risperiDONE 1 MG TABLET. PO SCH (18:03)
[2016-12-05] MEDS: traZODone 50 MG TABLET. PO PRN (20:51)
[2016-12-05] MEDS: MIRTAZAPINE 15 MG TABLET PO SCH (20:51)
[2016-12-05] MEDS: MELATONIN 3 MG TABLET PO SCH (20:51)
[2016-12-05] MEDS: MECLIZINE 12.5 MG TABLET. PO SCH (20:53)
--- NOTE | 2016-12-05 22:11 | PN ---
DATE: 12/04/2016 This is a late entry for 12/04/2016 and covers elements not covered in my initial note of 12/04/2016. I met with the patient in the evening of 12/05/2015. He is compliant with his medications. No hallucinations, no falls are noted. He is still somewhat suspicious about his and we addressed at length individually, less suspicious than before. REVIEW OF SYSTEMS: Ambulation impaired with a walker. No CV, , pulmonary, eye system symptoms on review. MENTAL STATUS EXAM: Oriented reasonably. Speech is coherent, abstraction fair, computation impaired, language function intact, attention span short. Mood and affect appears improved, less anxious, less paranoid. LABORATORY DATA: Reviewed. IMPRESSION: Unchanged from initial note. PLAN: Continue current psychotropics as mentioned in my initial note, Risperdal, Remeron, melatonin and Zoloft along with Zyprexa and trazodone p.r.n. Drug interactions were reviewed in detail, risk/benefit ratio favors no further change as of now. MAN Ainsley LAI MD DR: LUZ/nila JOB#: [id number] / [id number]
--- NOTE | 2016-12-05 23:32 | PDOC ---
Exam Reynaldo Demential Exam: Reynaldo Note: Please also refer to the separate dictated note~for this date of service dictated separately.~Patient seen individually. Discussed the patient with Nursing staff reviewed the chart.~Reviewed interim history and current functioning. Reviewed vital signs,~Labs/ Radiology~and current medications noted below. Continue current treatment with the changes noted in the dictated addendum note Assessment: Vital Signs: Vital Signs Date Time Temp Pulse Resp B/P (MAP) Pulse Ox O2 Delivery O2 Flow Rate FiO2 12/05/16 15:55 98.1 78 19 116/72 (87) 98 12/04/16 06:19 Room Air I&O Intake and Output 12/05/16 07:00 Intake Total 1440 ml Balance 1440 ml Intake Oral 1440 ml # Voids 1 Labs: Laboratory Tests Test 12/05/16 07:14 12/05/16 07:55 Glucose (Fingerstick) 93 mg/dL (70-99) White Blood Count 7.3 x10^3/uL (4.0-11.0) Red Blood Count 4.22 x10^6/uL (4.30-5.70) L Hemoglobin 12.5 g/dL (13.0-17.5) L Hematocrit 38.7 % (39.0-53.0) L Mean Corpuscular Volume 92 fL (79-100) Mean Corpuscular Hemoglobin 30 pg (25-35) Mean Corpuscular Hemoglobin Concent 32 g/dL (31-37) Red Cell Distribution Width 14.5 % (11.5-14.5) Platelet Count 169 x10^3/uL (140-400) Neutrophils (%) (Auto) 74 % (31-73) H Lymphocytes (%) (Auto) 17 % (24-48) L Monocytes (%) (Auto) 6 % (0-9) Eosinophils (%) (Auto) 2 % (0-3) Basophils (%) (Auto) 1 % (0-3) Neutrophils # (Auto) 5.4 x10^3uL (1.8-7.7) Lymphocytes # (Auto) 1.2 x10^3/uL (1.0-4.8) Monocytes # (Auto) 0.4 x10^3/uL (0.0-1.1) Eosinophils # (Auto) 0.2 x10^3/uL (0.0-0.7) Basophils # (Auto) 0.1 x10^3/uL (0.0-0.2) Sodium Level 145 mmol/L (136-145) Potassium Level 4.4 mmol/L (3.5-5.1) Chloride Level 109 mmol/L (98-107) H Carbon Dioxide Level 31 mmol/L (21-32) Anion Gap 5 (6-14) L Blood Urea Nitrogen 36 mg/dL (8-26) H Creatinine 1.6 mg/dL (0.7-1.3) H Estimated GFR (Cockcroft-Gault) 41.5 BUN/Creatinine Ratio 23 (6-20) H Glucose Level 96 mg/dL (70-99) Calcium Level 9.5 mg/dL (8.5-10.1) Total Bilirubin 0.3 mg/dL (0.2-1.0) Aspartate Amino Transferase (AST) 11 U/L (15-37) L Alanine Aminotransferase (ALT) 30 U/L (16-63) Alkaline Phosphatase 60 U/L (46-116) Total Protein 6.3 g/dL (6.4-8.2) L Albumin 3.4 g/dL (3.4-5.0) Albumin/Globulin Ratio 1.2 (1.0-1.7) Current Medications: Meds: Current Medications Acetaminophen (Tylenol) 650 mg PRN Q6HRS PRN PO PAIN / TEMP; Start 11/19/16 at 04:45; Stop 11/19/16 at 17:39; Status DC Multi-Ingredient Ointment (Analgesic [place]) 1 rajesh PRN QID PRN TP MUSCLE PAIN; Start 11/19/16 at 04:45 Al Hydroxide/Mg Hydroxide (Mylanta Plus Xs) 15 ml PRN AFTMEALHC PRN PO DYSPEPSIA; Start 11/19/16 at 04:45 Magnesium Hydroxide (Milk Of Magnesia) 2,400 mg PRN QHS PRN PO CONSTIPATION Last administered on 11/29/16t 20:25; Start 11/19/16 at 04:45 Sertraline HCl (Zoloft) 50 mg DAILY PO Last administered on 12/01/16 08:50; Start 11/19/16 at 09:00; Stop 12/01/16 at 13:35; Status DC Melatonin 3 mg QHS PO Last administered on 12/05/16 20:51; Start 11/19/16 at 21 :00 Allopurinol (Zyloprim) 100 mg DAILY PO Last administered on 12/05/16 07:55; Start 11/19/16 at 09:00 Metoprolol Succinate (Toprol Xl) 50 mg DAILY PO Last administered on 11/19/16 09:21; Start 11/19/16 at 09:00; Stop 11/19/16 at 17:14; Status DC Prednisone (Prednisone) 10 mg DAILY PO Last administered on 12/05/16 07:47; Start 11/19/16 at 09:00 Rivaroxaban (Xarelto) 15 mg DAILY PO Last administered on 11/20/16 07:50; Start 11/19/16 at 09:00; Stop 11/20/16 at 17:18; Status DC Spironolactone (Aldactone) 25 mg DAILY PO Last administered on 12/05/16 07:45 ; Start 11/19/16 at 09:00 Ascorbic Acid (Vitamin C) 500 mg BID PO Last administered on 12/05/16 20:51; Start 11/19/16 at 09:00 Glyburide (Diabeta) 2.5 mg DAILYWBKFT PO Last administered on 12/05/16 07:45; Start 11/19/16 at 08:00 Losartan Potassium (Cozaar) 100 mg DAILY PO Last administered on 12/05/16 07: 46; Start 11/19/16 at 09:00 Zinc Sulfate (Orazinc) 220 mg DAILY PO Last administered on 12/05/16 07:46; Start 11/19/16 at 09:00 Info (Anti-Coagulation Monitoring By Pharmacy) 1 each PRN DAILY PRN MC SEE COMMENTS; Start 11/19/16 at 04:45; Status Cancel Olanzapine (ZyPREXA ZYDIS) 2.5 mg PRN Q2HR PRN PO PSYCHOSIS; Start 11/19/16 at 05:15 Metoprolol Succinate (Toprol Xl) 50 mg 1X ONCE PO Last administered on 17:33; Start 11/19/16 at 17:15; Stop 11/19/16 at 17:16; Status DC Metoprolol Succinate (Toprol Xl) 100 mg DAILY PO Last administered on 07:54; Start 11/20/16 at 09:00 Acetaminophen (Tylenol) 650 mg PRN Q6HRS PRN PO PAIN / TEMP; Start 11/19/16 at 17:39 Mirtazapine (Remeron) 7.5 mg QHS PO Last administered on 11/20/16 19:54; Start 11/19/16 at 21:00; Stop 11/21/16 at 18:44; Status DC Risperidone (RisperDAL) 0.25 mg QHS PO Last administered on 11/23/16 20:43; Start 11/19/16 at 21:00; Stop 11/24/16 at 18:32; Status DC Apixaban (Eliquis) 2.5 mg BID PO Last administered on 12/05/16 20:51; Start at 21:00 Meclizine HCl (Antivert) 25 mg BID PO Last administered on 11/21/16 19:37; Start 11/20/16 at 21:00; Stop 11/22/16 at 19:05; Status DC Ferrous Sulfate (Feosol) 325 mg DAILYWBKFT PO Last administered on 12/05/16 07 :45; Start 11/21/16 at 08:00 Cyanocobalamin (Vitamin B-12) 1,000 mcg DAILY PO Last administered on 07:55; Start 11/21/16 at 09:00 Trazodone HCl (Desyrel) 50 mg QHS PRN PO INSOMNIA, MAY REPEAT X1 Last administered on 12/05/16 20:51; Start 11/21/16 at 18:45 Vitamin D (Vitamin D3) 50,000 unit WEEKLY PO Last administered on 11/30/16 09: 15; Start 11/23/16 at 09:00 Mirtazapine (Remeron) 15 mg QHS PO Last administered on 12/05/16 20:51; Start 11/22/16 at 21:00 Risperidone (RisperDAL) 0.375 mg DAILY@1900 PO Last administered on 11/25/16 19 :41; Start 11/24/16 at 19:00; Stop 11/26/16 at 15:03; Status DC Risperidone (RisperDAL) 0.5 mg DAILY@1900 PO ; Start 11/26/16 at 19:00; Stop 02/02 at 19:03; Status DC Risperidone (RisperDAL) 1 mg DAILY@1900 PO ; Start 11/27/16 at 19:00; Stop 11/27 at 19:00; Status DC Risperidone (RisperDAL) 0.5 mg DAILY@1900 PO Last administered on 11/29/16 18: 08; Start 11/27/16 at 19:00; Stop 11/29/16 at 19:24; Status DC Risperidone (RisperDAL) 0.5 mg DAILY PO Last administered on 12/05/16 07:47; Start 11/28/16 at 09:00 Risperidone (RisperDAL) 1 mg DAILY@1900 PO Last administered on 12/05/16 18:03 ; Start 11/30/16 at 19:00 Sertraline HCl (Zoloft) 75 mg DAILY PO Last administered on 12/05/16 07:55; Start 12/02/16 at 09:00 Nystatin (Nystop) 1 rajesh PRN BID PRN TP RASH; Start 12/03/16 at 09:15 Meclizine HCl (Antivert) 25 mg BID PO Last administered on 12/05/16 20:53; Start 12/05/16 at 21:00 Active Scripts Active Reported Zinc Sulfate 220 Mg Tablet 220 Mg PO DAILY Micardis (Telmisartan) 40 Mg Tablet 40 Mg PO BID Aldactone (Spironolactone) 25 Mg Tablet 25 Mg PO DAILY Zoloft (Sertraline Hcl) 50 Mg Tablet 50 Mg PO DAILY Xarelto (Rivaroxaban) 15 Mg Tablet 15 Mg PO DAILY Prednisone 10 Mg Tablet 10 Mg PO DAILY Take 3 tablets by mouth twice a day for 3 days, then take 2 tablets by mouth twice a day for 3 days, then take 1 tablet by mouth twice a day for 3 days, then take 1 tablet by mouth daily x 3 days, then stop. Metoprolol Succinate ( Xl ) (Metoprolol Succinate) 50 Mg Tab.er.24h 50 Mg PO DAILY Glyburide 2.5 Mg Tablet 2.5 Mg PO DAILY Melatonin 3 Mg Tablet 3 Mg PO QHS Vitamin C (Ascorbate Calcium) 500 Mg Tablet 500 Mg PO BID Allopurinol 100 Mg Tablet 100 Mg PO DAILY Tylenol (Acetaminophen) 325 Mg Tablet 325 Mg PO PRN Q4HRS PRN Diagnosis: Problems: (1) Anxiety disorder (2) Psychosis, atypical (3) Impulse control disorder JANEY LAI MD Dec 05, 2016 23:32
[2016-12-06 05:49] VITALS: BP 160/94
[2016-12-06] MEDS: glyBURIDE 5 MG TABLET PO SCH (08:20)
[2016-12-06] MEDS: SPIRONOLACTONE 25 MG TABLET PO SCH (08:24)
[2016-12-06] MEDS: FERROUS SULFATE 325 MG TABLET PO SCH (08:24)
[2016-12-06] MEDS: MECLIZINE 12.5 MG TABLET. PO SCH ×2 (08:25→20:34)
[2016-12-06] MEDS: APIXABAN 2.5 MG TABLET PO SCH ×2 (08:26→20:35)
[2016-12-06] MEDS: ZINC SULFATE 220 MG CAPSULE. PO SCH (08:26)
[2016-12-06] MEDS: predniSONE 10 MG TABLET PO SCH (08:26)
[2016-12-06] MEDS: risperiDONE 0.5 MG TABLET. PO SCH (08:26)
[2016-12-06] MEDS: LOSARTAN 50 MG TABLET. PO SCH (08:26)
[2016-12-06] MEDS: ALLOPURINOL 100 MG TABLET. PO SCH (08:27)
[2016-12-06] MEDS: SERTRALINE 50 MG TABLET. PO SCH (08:27)
[2016-12-06] MEDS: ASCORBIC ACID 500 MG TABLET PO SCH ×2 (08:27→20:34)
[2016-12-06] MEDS: CYANOCOBALAMIN (VITAMIN B-12) 1,000 MCG TABLET. PO SCH (08:27)
[2016-12-06] MEDS: METOPROLOL SUCC 24HR ER 100 MG TAB.ER.24H. PO SCH (08:27)
[2016-12-06 16:26] VITALS: BP 135/77
[2016-12-06] MEDS: risperiDONE 1 MG TABLET. PO SCH (18:45)
--- NOTE | 2016-12-06 20:00 | PDOC ---
Exam Reynaldo Demential Exam: Reynaldo Note: Please also refer to the separate dictated note~for this date of service dictated separately.~Patient seen individually. Discussed the patient with Nursing staff reviewed the chart.~Reviewed interim history and current functioning. Reviewed vital signs,~Labs/ Radiology~and current medications noted below. Continue current treatment with the changes noted in the dictated addendum note Assessment: Vital Signs: Vital Signs Date Time Temp Pulse Resp B/P (MAP) Pulse Ox O2 Delivery O2 Flow Rate FiO2 12/06/16 16:26 97.6 85 18 135/77 (96) 95 Room Air I&O Intake and Output 12/06/16 07:00 Intake Total 1445 ml Balance 1445 ml Intake Oral 1445 ml # Voids 1 Labs: Laboratory Tests Test 12/06/16 07:21 Glucose (Fingerstick) 90 mg/dL (70-99) Current Medications: Meds: Current Medications Acetaminophen (Tylenol) 650 mg PRN Q6HRS PRN PO PAIN / TEMP; Start 11/19/16 at 04:45; Stop 11/19/16 at 17:39; Status DC Multi-Ingredient Ointment (Analgesic [place]) 1 rajesh PRN QID PRN TP MUSCLE PAIN; Start 11/19/16 at 04:45 Al Hydroxide/Mg Hydroxide (Mylanta Plus Xs) 15 ml PRN AFTMEALHC PRN PO DYSPEPSIA; Start 11/19/16 at 04:45 Magnesium Hydroxide (Milk Of Magnesia) 2,400 mg PRN QHS PRN PO CONSTIPATION Last administered on 11/29/16 20:25; Start 11/19/16 at 04:45 Sertraline HCl (Zoloft) 50 mg DAILY PO Last administered on 12/01/16 08:50; Start 11/19/16 at 09:00; Stop 12/01/16 at 13:35; Status DC Melatonin 3 mg QHS PO Last administered on 12/05/16 20:51; Start 11/19/16 at 21 :00 Allopurinol (Zyloprim) 100 mg DAILY PO Last administered on 12/06/16 08:27; Start 11/19/16 at 09:00 Metoprolol Succinate (Toprol Xl) 50 mg DAILY PO Last administered on 11/19/16 09:21; Start 11/19/16 at 09:00; Stop 11/19/16 at 17:14; Status DC Prednisone (Prednisone) 10 mg DAILY PO Last administered on 12/06/16 08:26; Start 11/19/16 at 09:00 Rivaroxaban (Xarelto) 15 mg DAILY PO Last administered on 11/20/16 07:50; Start 11/19/16 at 09:00; Stop 11/20/16 at 17:18; Status DC Spironolactone (Aldactone) 25 mg DAILY PO Last administered on 12/06/16 08:24 ; Start 11/19/16 at 09:00 Ascorbic Acid (Vitamin C) 500 mg BID PO Last administered on 12/06/16 08:27; Start 11/19/16 at 09:00 Glyburide (Diabeta) 2.5 mg DAILYWBKFT PO Last administered on 12/06/16 08:20; Start 11/19/16 at 08:00 Losartan Potassium (Cozaar) 100 mg DAILY PO Last administered on 12/06/16 08: 26; Start 11/19/16 at 09:00 Zinc Sulfate (Orazinc) 220 mg DAILY PO Last administered on 12/06/16 08:26; Start 11/19/16 at 09:00 Info (Anti-Coagulation Monitoring By Pharmacy) 1 each PRN DAILY PRN MC SEE COMMENTS; Start 11/19/16 at 04:45; Status Cancel Olanzapine (ZyPREXA ZYDIS) 2.5 mg PRN Q2HR PRN PO PSYCHOSIS; Start 11/19/16 at 05:15 Metoprolol Succinate (Toprol Xl) 50 mg 1X ONCE PO Last administered on 17:33; Start 11/19/16 at 17:15; Stop 11/19/16 at 17:16; Status DC Metoprolol Succinate (Toprol Xl) 100 mg DAILY PO Last administered on 08:27; Start 11/20/16 at 09:00 Acetaminophen (Tylenol) 650 mg PRN Q6HRS PRN PO PAIN / TEMP; Start 11/19/16 at 17:39 Mirtazapine (Remeron) 7.5 mg QHS PO Last administered on 11/20/16 19:54; Start 11/19/16 at 21:00; Stop 11/21/16 at 18:44; Status DC Risperidone (RisperDAL) 0.25 mg QHS PO Last administered on 11/23/16 20:43; Start 11/19/16 at 21:00; Stop 11/24/16 at 18:32; Status DC Apixaban (Eliquis) 2.5 mg BID PO Last administered on 12/06/16 08:26; Start at 21:00 Meclizine HCl (Antivert) 25 mg BID PO Last administered on 11/21/16 19:37; Start 11/20/16 at 21:00; Stop 11/22/16 at 19:05; Status DC Ferrous Sulfate (Feosol) 325 mg DAILYWBKFT PO Last administered on 12/06/16 08 :24; Start 11/21/16 at 08:00 Cyanocobalamin (Vitamin B-12) 1,000 mcg DAILY PO Last administered on 08:27; Start 11/21/16 at 09:00 Trazodone HCl (Desyrel) 50 mg QHS PRN PO INSOMNIA, MAY REPEAT X1 Last administered on 12/05/16 20:51; Start 11/21/16 at 18:45 Vitamin D (Vitamin D3) 50,000 unit WEEKLY PO Last administered on 11/30/16 09: 15; Start 11/23/16 at 09:00 Mirtazapine (Remeron) 15 mg QHS PO Last administered on 12/05/16 20:51; Start 11/22/16 at 21:00 Risperidone (RisperDAL) 0.375 mg DAILY@1900 PO Last administered on 11/25/16 19 :41; Start 11/24/16 at 19:00; Stop 11/26/16 at 15:03; Status DC Risperidone (RisperDAL) 0.5 mg DAILY@1900 PO ; Start 11/26/16 at 19:00; Stop 02/02 at 19:03; Status DC Risperidone (RisperDAL) 1 mg DAILY@1900 PO ; Start 11/27/16 at 19:00; Stop 11/27 at 19:00; Status DC Risperidone (RisperDAL) 0.5 mg DAILY@1900 PO Last administered on 11/29/16 18: 08; Start 11/27/16 at 19:00; Stop 11/29/16 at 19:24; Status DC Risperidone (RisperDAL) 0.5 mg DAILY PO Last administered on 12/06/16 08:26; Start 11/28/16 at 09:00 Risperidone (RisperDAL) 1 mg DAILY@1900 PO Last administered on 12/06/16 18:45 ; Start 11/30/16 at 19:00 Sertraline HCl (Zoloft) 75 mg DAILY PO Last administered on 12/06/16 08:27; Start 12/02/16 at 09:00 Nystatin (Nystop) 1 rajesh PRN BID PRN TP RASH; Start 12/03/16 at 09:15 Meclizine HCl (Antivert) 25 mg BID PO Last administered on 12/06/16 08:25; Start 12/05/16 at 21:00 Active Scripts Active Reported Zinc Sulfate 220 Mg Tablet 220 Mg PO DAILY Micardis (Telmisartan) 40 Mg Tablet 40 Mg PO BID Aldactone (Spironolactone) 25 Mg Tablet 25 Mg PO DAILY Zoloft (Sertraline Hcl) 50 Mg Tablet 50 Mg PO DAILY Xarelto (Rivaroxaban) 15 Mg Tablet 15 Mg PO DAILY Prednisone 10 Mg Tablet 10 Mg PO DAILY Take 3 tablets by mouth twice a day for 3 days, then take 2 tablets by mouth twice a day for 3 days, then take 1 tablet by mouth twice a day for 3 days, then take 1 tablet by mouth daily x 3 days, then stop. Metoprolol Succinate ( Xl ) (Metoprolol Succinate) 50 Mg Tab.er.24h 50 Mg PO DAILY Glyburide 2.5 Mg Tablet 2.5 Mg PO DAILY Melatonin 3 Mg Tablet 3 Mg PO QHS Vitamin C (Ascorbate Calcium) 500 Mg Tablet 500 Mg PO BID Allopurinol 100 Mg Tablet 100 Mg PO DAILY Tylenol (Acetaminophen) 325 Mg Tablet 325 Mg PO PRN Q4HRS PRN Diagnosis: Problems: (1) Anxiety disorder (2) Psychosis, atypical (3) Impulse control disorder JANEY LAI MD Dec 06, 2016 20:00
[2016-12-06] MEDS: MELATONIN 3 MG TABLET PO SCH (20:35)
[2016-12-06] MEDS: MIRTAZAPINE 15 MG TABLET PO SCH (20:35)
[2016-12-06] MEDS: traZODone 50 MG TABLET. PO PRN (20:35)
--- NOTE | 2016-12-07 00:41 | PN ---
DATE: 12/05/2016 This late entry 12/05/2016 covers elements not covered in my initial note. I met with the patient in the evening of 12/05/2016. Overall, the patient has been pleasant, interactive, social, calm and compliant, slept reasonably well. No fall noted. Slept 6-3/4 hours previous night. REVIEW OF SYSTEMS: Ambulation impaired with walker. No CV, , pulmonary, eye system symptoms on review. MENTAL STATUS EXAM: Reasonably oriented. Speech coherent, pleasant, verbal, abstraction fair, computation impaired, language function intact, attention span short. Mood and affect is improved. He denies that he has any other delusions about his and not entirely sure of that, but he does seem better. LABORATORY DATA: Reviewed. IMPRESSION: Unchanged from initial note. PLAN: Reviewed drug interactions, risk/benefit ratio, favors no further change at this time, maintain Risperdal 1 mg a day, Zoloft, melatonin, Remeron along with Zyprexa and trazodone p.r.n. MAN Ainlsey LAI MD DR: LUZ/nila JOB#: [id number] / [id number]
[2016-12-07 06:05] VITALS: BP 130/84
[2016-12-07] MEDS: MECLIZINE 12.5 MG TABLET. PO SCH ×2 (07:37→20:11)
[2016-12-07] MEDS: SPIRONOLACTONE 25 MG TABLET PO SCH (07:37)
[2016-12-07] MEDS: glyBURIDE 5 MG TABLET PO SCH (07:37)
[2016-12-07] MEDS: FERROUS SULFATE 325 MG TABLET PO SCH (07:37)
[2016-12-07] MEDS: LOSARTAN 50 MG TABLET. PO SCH (07:38)
[2016-12-07] MEDS: ZINC SULFATE 220 MG CAPSULE. PO SCH (07:40)
[2016-12-07] MEDS: METOPROLOL SUCC 24HR ER 100 MG TAB.ER.24H. PO SCH (07:40)
[2016-12-07] MEDS: APIXABAN 2.5 MG TABLET PO SCH ×2 (07:40→20:11)
[2016-12-07] MEDS: predniSONE 10 MG TABLET PO SCH (07:40)
[2016-12-07] MEDS: risperiDONE 0.5 MG TABLET. PO SCH (07:40)
[2016-12-07] MEDS: ASCORBIC ACID 500 MG TABLET PO SCH ×2 (07:41→20:11)
[2016-12-07] MEDS: ALLOPURINOL 100 MG TABLET. PO SCH (07:41)
[2016-12-07] MEDS: CHOLECALCIFEROL (VITAMIN D3) 50,000 UNIT CAPSULE PO SCH (07:41)
[2016-12-07] MEDS: CYANOCOBALAMIN (VITAMIN B-12) 1,000 MCG TABLET. PO SCH (07:41)
[2016-12-07] MEDS: SERTRALINE 50 MG TABLET. PO SCH (07:41)
[2016-12-07 16:09] VITALS: BP 93/56
[2016-12-07] MEDS ORDERED: APIX2.5T PO (17:25)
[2016-12-07] MEDS ORDERED: CHOL500021 PO (17:25)
[2016-12-07] MEDS ORDERED: CYAN10005 PO (17:27)
[2016-12-07] MEDS ORDERED: FERR-26 PO (17:27)
[2016-12-07] MEDS ORDERED: LOSA100T2 PO (17:28)
[2016-12-07] MEDS: risperiDONE 1 MG TABLET. PO SCH (17:32)
[2016-12-07] MEDS ORDERED: MECL25TA3 PO (17:32)
[2016-12-07] MEDS ORDERED: NYST15PO9 TP (17:33)
[2016-12-07] MEDS ORDERED: MIRT15TA PO (17:36)
[2016-12-07] MEDS ORDERED: OLAN5TAB5 PO (17:38)
[2016-12-07] MEDS ORDERED: RISP0.5T24 PO (17:40)
[2016-12-07] MEDS ORDERED: RISP1TAB43 PO (17:41)
[2016-12-07] MEDS ORDERED: TRAZ50TA15 PO (17:42)
--- NOTE | 2016-12-07 19:57 | PDOC ---
Exam Reynaldo Demential Exam: Reynaldo Note: Please also refer to the separate dictated note~for this date of service dictated separately.~Patient seen individually. Discussed the patient with Nursing staff reviewed the chart.~Reviewed interim history and current functioning. Reviewed vital signs,~Labs/ Radiology~and current medications noted below. Continue current treatment with the changes noted in the dictated addendum note Assessment: Vital Signs: Vital Signs Date Time Temp Pulse Resp B/P (MAP) Pulse Ox O2 Delivery O2 Flow Rate FiO2 12/07/16 16:09 97.9 84 20 93/56 (68) 98 12/06/16 16:26 Room Air I&O Intake and Output 12/07/16 06:59 Intake Total 880 ml Balance 880 ml Intake Oral 880 ml Labs: Laboratory Tests Test 12/07/16 07:57 Glucose (Fingerstick) 80 mg/dL (70-99) Current Medications: Meds: Current Medications Acetaminophen (Tylenol) 650 mg PRN Q6HRS PRN PO PAIN / TEMP; Start 11/19/16 at 04:45; Stop 11/19/16 at 17:39; Status DC Multi-Ingredient Ointment (Analgesic [place]) 1 yosvany PRN QID PRN TP MUSCLE PAIN; Start 11/19/16 at 04:45 Al Hydroxide/Mg Hydroxide (Mylanta Plus Xs) 15 ml PRN AFTMEALHC PRN PO DYSPEPSIA; Start 11/19/16 at 04:45 Magnesium Hydroxide (Milk Of Magnesia) 2,400 mg PRN QHS PRN PO CONSTIPATION Last administered on 11/29/16 20:25; Start 11/19/16 at 04:45 Sertraline HCl (Zoloft) 50 mg DAILY PO Last administered on 12/01/16 08:50; Start 11/19/16 at 09:00; Stop 12/01/16 at 13:35; Status DC Melatonin 3 mg QHS PO Last administered on 12/06/16 20:35; Start 11/19/16 at 21 :00 Allopurinol (Zyloprim) 100 mg DAILY PO Last administered on 12/07/16 07:41; Start 11/19/16 at 09:00 Metoprolol Succinate (Toprol Xl) 50 mg DAILY PO Last administered on 11/19/16 09:21; Start 11/19/16 at 09:00; Stop 11/19/16 at 17:14; Status DC Prednisone (Prednisone) 10 mg DAILY PO Last administered on 12/07/16 07:40; Start 11/19/16 at 09:00 Rivaroxaban (Xarelto) 15 mg DAILY PO Last administered on 11/20/16 07:50; Start 11/19/16 at 09:00; Stop 11/20/16 at 17:18; Status DC Spironolactone (Aldactone) 25 mg DAILY PO Last administered on 12/07/16 07:37 ; Start 11/19/16 at 09:00 Ascorbic Acid (Vitamin C) 500 mg BID PO Last administered on 12/07/16 07:41; Start 11/19/16 at 09:00 Glyburide (Diabeta) 2.5 mg DAILYWBKFT PO Last administered on 12/07/16 07:37; Start 11/19/16 at 08:00 Losartan Potassium (Cozaar) 100 mg DAILY PO Last administered on 12/07/16 07: 38; Start 11/19/16 at 09:00 Zinc Sulfate (Orazinc) 220 mg DAILY PO Last administered on 12/07/16 07:40; Start 11/19/16 at 09:00 Info (Anti-Coagulation Monitoring By Pharmacy) 1 each PRN DAILY PRN MC SEE COMMENTS; Start 11/19/16 at 04:45; Status Cancel Olanzapine (ZyPREXA ZYDIS) 2.5 mg PRN Q2HR PRN PO PSYCHOSIS; Start 11/19/16 at 05:15 Metoprolol Succinate (Toprol Xl) 50 mg 1X ONCE PO Last administered on 17:33; Start 11/19/16 at 17:15; Stop 11/19/16 at 17:16; Status DC Metoprolol Succinate (Toprol Xl) 100 mg DAILY PO Last administered on 07:40; Start 11/20/16 at 09:00 Acetaminophen (Tylenol) 650 mg PRN Q6HRS PRN PO PAIN / TEMP; Start 11/19/16 at 17:39 Mirtazapine (Remeron) 7.5 mg QHS PO Last administered on 11/20/16 19:54; Start 11/19/16 at 21:00; Stop 11/21/16 at 18:44; Status DC Risperidone (RisperDAL) 0.25 mg QHS PO Last administered on 11/23/16 20:43; Start 11/19/16 at 21:00; Stop 11/24/16 at 18:32; Status DC Apixaban (Eliquis) 2.5 mg BID PO Last administered on 12/07/16 07:40; Start at 21:00 Meclizine HCl (Antivert) 25 mg BID PO Last administered on 11/21/16 19:37; Start 11/20/16 at 21:00; Stop 11/22/16 at 19:05; Status DC Ferrous Sulfate (Feosol) 325 mg DAILYWBKFT PO Last administered on 12/07/16 07 :37; Start 11/21/16 at 08:00 Cyanocobalamin (Vitamin B-12) 1,000 mcg DAILY PO Last administered on 07:41; Start 11/21/16 at 09:00 Trazodone HCl (Desyrel) 50 mg QHS PRN PO INSOMNIA, MAY REPEAT X1 Last administered on 12/06/16 20:35; Start 11/21/16 at 18:45 Vitamin D (Vitamin D3) 50,000 unit WEEKLY PO Last administered on 12/07/16 07: 41; Start 11/23/16 at 09:00 Mirtazapine (Remeron) 15 mg QHS PO Last administered on 12/06/16 20:35; Start 11/22/16 at 21:00 Risperidone (RisperDAL) 0.375 mg DAILY@1900 PO Last administered on 11/25/16 19 :41; Start 11/24/16 at 19:00; Stop 11/26/16 at 15:03; Status DC Risperidone (RisperDAL) 0.5 mg DAILY@1900 PO ; Start 11/26/16 at 19:00; Stop 02/02 at 19:03; Status DC Risperidone (RisperDAL) 1 mg DAILY@1900 PO ; Start 11/27/16 at 19:00; Stop 11/27 at 19:00; Status DC Risperidone (RisperDAL) 0.5 mg DAILY@1900 PO Last administered on 11/29/16 18: 08; Start 11/27/16 at 19:00; Stop 11/29/16 at 19:24; Status DC Risperidone (RisperDAL) 0.5 mg DAILY PO Last administered on 12/07/16 07:40; Start 11/28/16 at 09:00 Risperidone (RisperDAL) 1 mg DAILY@1900 PO Last administered on 12/07/16 17:32 ; Start 11/30/16 at 19:00 Sertraline HCl (Zoloft) 75 mg DAILY PO Last administered on 12/07/16 07:41; Start 12/02/16 at 09:00 Nystatin (Nystop) 1 yosvany PRN BID PRN TP RASH; Start 12/03/16 at 09:15 Meclizine HCl (Antivert) 25 mg BID PO Last administered on 12/07/16 07:37; Start 12/05/16 at 21:00 Active Scripts Active Reported Trazodone Hcl 50 Mg Tablet 1 Tab PO QHS PRN Risperdal (Risperidone) 1 Mg Tablet 1 Tab PO DAILYWSUP Risperdal (Risperidone) 0.5 Mg Tablet 1 Tab PO DAILY Zyprexa Zydis (Olanzapine) 5 Mg Tab.rapdis 2.5 Mg PO PRN Q2HR PRN Remeron (Mirtazapine) 15 Mg Tablet 1 Tab PO QHS Nystatin 15 Gm Powder 1 Yosvany TP BID PRN Meclizine Hcl 25 Mg Tablet 1 Tab PO BID Cozaar (Losartan Potassium) 100 Mg Tablet 100 Mg PO DAILY Ferrous Sulfate 325 Mg Tablet 1 Tab PO DAILY Vitamin B-12 (Cyanocobalamin (Vitamin B-12)) 1,000 Mcg Tablet 1 Tab PO DAILY D3-50 (Cholecalciferol (Vitamin D3)) 50,000 Unit Capsule 1 Cap PO WEEKLY Eliquis (Apixaban) 2.5 Mg Tablet 2.5 Mg PO BID Zinc Sulfate 220 Mg Tablet 220 Mg PO DAILY Micardis (Telmisartan) 40 Mg Tablet 40 Mg PO BID Aldactone (Spironolactone) 25 Mg Tablet 25 Mg PO DAILY Zoloft (Sertraline Hcl) 50 Mg Tablet 50 Mg PO DAILY Xarelto (Rivaroxaban) 15 Mg Tablet 15 Mg PO DAILY Prednisone 10 Mg Tablet 10 Mg PO DAILY Take 3 tablets by mouth twice a day for 3 days, then take 2 tablets by mouth twice a day for 3 days, then take 1 tablet by mouth twice a day for 3 days, then take 1 tablet by mouth daily x 3 days, then stop. Metoprolol Succinate ( Xl ) (Metoprolol Succinate) 50 Mg Tab.er.24h 50 Mg PO DAILY Glyburide 2.5 Mg Tablet 2.5 Mg PO DAILY Melatonin 3 Mg Tablet 3 Mg PO QHS Vitamin C (Ascorbate Calcium) 500 Mg Tablet 500 Mg PO BID Allopurinol 100 Mg Tablet 100 Mg PO DAILY Tylenol (Acetaminophen) 325 Mg Tablet 325 Mg PO PRN Q4HRS PRN Diagnosis: Problems: (1) Anxiety disorder (2) Psychosis, atypical (3) Impulse control disorder JANEY LAI MD Dec 07, 2016 19:57
[2016-12-07] MEDS: traZODone 50 MG TABLET. PO PRN (20:11)
[2016-12-07] MEDS: MIRTAZAPINE 15 MG TABLET PO SCH (20:11)
[2016-12-07] MEDS: MELATONIN 3 MG TABLET PO SCH (20:11)
--- NOTE | 2016-12-08 01:58 | PN ---
DATE: 12/06/2016 SUBJECTIVE: This is a late entry 12/06/2016, covers elements not covered in my initial note. I met with the patient in the evening of 12/06/2016. Per nursing report, he has been pleasant, interactive, social calm, and compliant. REVIEW OF SYSTEMS: Ambulation impaired with walker. No CV, , pulmonary, or eye system symptoms on review. MENTAL STATUS EXAM: Reasonably oriented. Speech is coherent. He is pleasant and verbal, still a little suspicious about his , but very convincingly repeatedly stated all those thoughts are "gone." He states he talked to his and for the first time he heard her saying that she wanted him home and it made him feel good and wanted, which also helped his paranoia. No active suicidal or homicidal ideation. Attention span fair, language function intact, intellect average, insight improved, and judgment intact to standard questioning. IMPRESSION: Unchanged from initial note. PLAN: Reviewed drug interactions. Risk/benefit ratio favors no further change as noted in my initial note. MAN Ainsley LAI MD DR: LUZ/nila JOB#: [id number] / [id number]
[2016-12-08 06:00] VITALS: BP 124/78
[2016-12-08] MEDS: APIXABAN 2.5 MG TABLET PO SCH (08:11)
[2016-12-08] MEDS: SERTRALINE 50 MG TABLET. PO SCH (08:11)
[2016-12-08] MEDS: glyBURIDE 5 MG TABLET PO SCH (08:12)
[2016-12-08] MEDS: ALLOPURINOL 100 MG TABLET. PO SCH (08:12)
[2016-12-08] MEDS: MECLIZINE 12.5 MG TABLET. PO SCH (08:12)
[2016-12-08] MEDS: ZINC SULFATE 220 MG CAPSULE. PO SCH (08:12)
[2016-12-08] MEDS: FERROUS SULFATE 325 MG TABLET PO SCH (08:12)
[2016-12-08] MEDS: SPIRONOLACTONE 25 MG TABLET PO SCH (08:12)
[2016-12-08] MEDS: LOSARTAN 50 MG TABLET. PO SCH (08:13)
[2016-12-08] MEDS: risperiDONE 0.5 MG TABLET. PO SCH (08:13)
[2016-12-08] MEDS: predniSONE 10 MG TABLET PO SCH (08:13)
[2016-12-08] MEDS: ASCORBIC ACID 500 MG TABLET PO SCH (08:13)
[2016-12-08] MEDS: CYANOCOBALAMIN (VITAMIN B-12) 1,000 MCG TABLET. PO SCH (08:13)
[2016-12-08 08:18] VITALS: BP 124/78
[2016-12-08] MEDS: METOPROLOL SUCC 24HR ER 100 MG TAB.ER.24H. PO SCH (08:18)
--- NOTE | 2016-12-08 18:38 | PDOC ---
Exam Reynaldo Demential Exam: Reynaldo Note: Please also refer to the separate dictated note~for this date of service dictated separately.~Patient seen individually. Discussed the patient with Nursing staff reviewed the chart.~Reviewed interim history and current functioning. Reviewed vital signs,~Labs/ Radiology~and current medications noted below. Continue current treatment with the changes noted in the dictated addendum note Assessment: Vital Signs: Vital Signs Date Time Temp Pulse Resp B/P (MAP) Pulse Ox O2 Delivery O2 Flow Rate FiO2 12/08/16 08:18 64 124/78 12/08/16 06:00 97.9 16 97 12/06/16 16:26 Room Air I&O Intake and Output 12/08/16 07:00 Intake Total 1440 ml Balance 1440 ml Intake Oral 1440 ml Labs: Laboratory Tests Test 12/08/16 07:28 Glucose (Fingerstick) 80 mg/dL (70-99) Current Medications: Meds: Current Medications Acetaminophen (Tylenol) 650 mg PRN Q6HRS PRN PO PAIN / TEMP; Start 11/19/16 at 04:45; Stop 11/19/16 at 17:39; Status DC Multi-Ingredient Ointment (Analgesic [place]) 1 yosvany PRN QID PRN TP MUSCLE PAIN; Start 11/19/16 at 04:45; Stop 12/08/16 at 14:39; Status DC Al Hydroxide/Mg Hydroxide (Mylanta Plus Xs) 15 ml PRN AFTMEALHC PRN PO DYSPEPSIA; Start 11/19/16 at 04:45; Stop 12/08/16 at 14:39; Status DC Magnesium Hydroxide (Milk Of Magnesia) 2,400 mg PRN QHS PRN PO CONSTIPATION Last administered on 11/29/16 20:25; Start 11/19/16 at 04:45; Stop 12/08/16 at 14:39; Status DC Sertraline HCl (Zoloft) 50 mg DAILY PO Last administered on 12/01/16 08:50; Start 11/19/16 at 09:00; Stop 12/01/16 at 13:35; Status DC Melatonin 3 mg QHS PO Last administered on 12/07/16 20:11; Start 11/19/16 at 21 :00; Stop 12/08/16 at 14:39; Status DC Allopurinol (Zyloprim) 100 mg DAILY PO Last administered on 12/08/16 08:12; Start 11/19/16 at 09:00; Stop 12/08/16 at 14:39; Status DC Metoprolol Succinate (Toprol Xl) 50 mg DAILY PO Last administered on 11/19/16 09:21; Start 11/19/16 at 09:00; Stop 11/19/16 at 17:14; Status DC Prednisone (Prednisone) 10 mg DAILY PO Last administered on 12/08/16 08:13; Start 11/19/16 at 09:00; Stop 12/08/16 at 14:39; Status DC Rivaroxaban (Xarelto) 15 mg DAILY PO Last administered on 11/20/16 07:50; Start 11/19/16 at 09:00; Stop 11/20/16 at 17:18; Status DC Spironolactone (Aldactone) 25 mg DAILY PO Last administered on 12/08/16 08:12 ; Start 11/19/16 at 09:00; Stop 12/08/16 at 14:39; Status DC Ascorbic Acid (Vitamin C) 500 mg BID PO Last administered on 12/08/16 08:13; Start 11/19/16 at 09:00; Stop 12/08/16 at 14:39; Status DC Glyburide (Diabeta) 2.5 mg DAILYWBKFT PO Last administered on 12/08/16 08:12; Start 11/19/16 at 08:00; Stop 12/08/16 at 14:39; Status DC Losartan Potassium (Cozaar) 100 mg DAILY PO Last administered on 12/08/16 08: 13; Start 11/19/16 at 09:00; Stop 12/08/16 at 14:39; Status DC Zinc Sulfate (Orazinc) 220 mg DAILY PO Last administered on 12/08/16 08:12; Start 11/19/16 at 09:00; Stop 12/08/16 at 14:39; Status DC Info (Anti-Coagulation Monitoring By Pharmacy) 1 each PRN DAILY PRN MC SEE COMMENTS; Start 11/19/16 at 04:45; Status Cancel Olanzapine (ZyPREXA ZYDIS) 2.5 mg PRN Q2HR PRN PO PSYCHOSIS; Start 11/19/16 at 05:15; Stop 12/08/16 at 14:39; Status DC Metoprolol Succinate (Toprol Xl) 50 mg 1X ONCE PO Last administered on 17:33; Start 11/19/16 at 17:15; Stop 11/19/16 at 17:16; Status DC Metoprolol Succinate (Toprol Xl) 100 mg DAILY PO Last administered on 08:18; Start 11/20/16 at 09:00; Stop 12/08/16 at 14:39; Status DC Acetaminophen (Tylenol) 650 mg PRN Q6HRS PRN PO PAIN / TEMP; Start 11/19/16 at 17:39; Stop 12/08/16 at 14:39; Status DC Mirtazapine (Remeron) 7.5 mg QHS PO Last administered on 11/20/16 19:54; Start 11/19/16 at 21:00; Stop 11/21/16 at 18:44; Status DC Risperidone (RisperDAL) 0.25 mg QHS PO Last administered on 11/23/16 20:43; Start 11/19/16 at 21:00; Stop 11/24/16 at 18:32; Status DC Apixaban (Eliquis) 2.5 mg BID PO Last administered on 12/08/16 08:11; Start at 21:00; Stop 12/08/16 at 14:39; Status DC Meclizine HCl (Antivert) 25 mg BID PO Last administered on 11/21/16 19:37; Start 11/20/16 at 21:00; Stop 11/22/16 at 19:05; Status DC Ferrous Sulfate (Feosol) 325 mg DAILYWBKFT PO Last administered on 12/08/16 08 :12; Start 11/21/16 at 08:00; Stop 12/08/16 at 14:39; Status DC Cyanocobalamin (Vitamin B-12) 1,000 mcg DAILY PO Last administered on 08:13; Start 11/21/16 at 09:00; Stop 12/08/16 at 14:39; Status DC Trazodone HCl (Desyrel) 50 mg QHS PRN PO INSOMNIA, MAY REPEAT X1 Last administered on 12/07/16 20:11; Start 11/21/16 at 18:45; Stop 12/08/16 at 14:39 ; Status DC Vitamin D (Vitamin D3) 50,000 unit WEEKLY PO Last administered on 12/07/16 07: 41; Start 11/23/16 at 09:00; Stop 12/08/16 at 14:39; Status DC Mirtazapine (Remeron) 15 mg QHS PO Last administered on 12/07/16 20:11; Start 11/22/16 at 21:00; Stop 12/08/16 at 14:39; Status DC Risperidone (RisperDAL) 0.375 mg DAILY@1900 PO Last administered on 11/25/16 19 :41; Start 11/24/16 at 19:00; Stop 11/26/16 at 15:03; Status DC Risperidone (RisperDAL) 0.5 mg DAILY@1900 PO ; Start 11/26/16 at 19:00; Stop 02/02 at 19:03; Status DC Risperidone (RisperDAL) 1 mg DAILY@1900 PO ; Start 11/27/16 at 19:00; Stop 11/27 at 19:00; Status DC Risperidone (RisperDAL) 0.5 mg DAILY@1900 PO Last administered on 11/29/16 18: 08; Start 11/27/16 at 19:00; Stop 11/29/16 at 19:24; Status DC Risperidone (RisperDAL) 0.5 mg DAILY PO Last administered on 12/08/16 08:13; Start 11/28/16 at 09:00; Stop 12/08/16 at 14:39; Status DC Risperidone (RisperDAL) 1 mg DAILY@1900 PO Last administered on 12/07/16 17:32 ; Start 11/30/16 at 19:00; Stop 12/08/16 at 14:39; Status DC Sertraline HCl (Zoloft) 75 mg DAILY PO Last administered on 12/08/16 08:11; Start 12/02/16 at 09:00; Stop 12/08/16 at 14:39; Status DC Nystatin (Nystop) 1 yosvany PRN BID PRN TP RASH; Start 12/03/16 at 09:15; Stop at 14:39; Status DC Meclizine HCl (Antivert) 25 mg BID PO Last administered on 12/08/16t 08:12; Start 12/05/16 at 21:00; Stop 12/08/16 at 14:39; Status DC Active Scripts Active Reported Trazodone Hcl 50 Mg Tablet 50 Mg PO QHS PRN Risperdal (Risperidone) 1 Mg Tablet 1 Mg PO DAILY@1900 Risperdal (Risperidone) 0.5 Mg Tablet 0.5 Mg PO DAILY Zyprexa Zydis (Olanzapine) 5 Mg Tab.rapdis 2.5 Mg PO PRN Q2HR PRN MDD 10 Remeron (Mirtazapine) 15 Mg Tablet 15 Mg PO QHS Nystatin 15 Gm Powder 1 Yosvany TP PRN BID PRN Meclizine Hcl 25 Mg Tablet 25 Mg PO BID Cozaar (Losartan Potassium) 100 Mg Tablet 100 Mg PO DAILY Hold for SBP less than 100. After a held dose, reassess in 2 hours. If SBP is above threshold, administerd dose as ordered. If SBP is below threshold, Contact provider for additional insturcitions Ferrous Sulfate 325 Mg Tablet 325 Mg PO DAILY Vitamin B-12 (Cyanocobalamin (Vitamin B-12)) 1,000 Mcg Tablet 1,000 Mcg PO DAILY D3-50 (Cholecalciferol (Vitamin D3)) 50,000 Unit Capsule 50,000 Units PO WEEKLY Eliquis (Apixaban) 2.5 Mg Tablet 2.5 Mg PO BID Zinc Sulfate 220 Mg Tablet 220 Mg PO DAILY Aldactone (Spironolactone) 25 Mg Tablet 25 Mg PO DAILY Zoloft (Sertraline Hcl) 50 Mg Tablet 75 Mg PO DAILY Metoprolol Succinate ( Xl ) (Metoprolol Succinate) 50 Mg Tab.er.24h 100 Mg PO DAILY Glyburide 2.5 Mg Tablet 2.5 Mg PO DAILY Melatonin 3 Mg Tablet 3 Mg PO QHS Vitamin C (Ascorbate Calcium) 500 Mg Tablet 500 Mg PO BID Allopurinol 100 Mg Tablet 100 Mg PO DAILY Tylenol (Acetaminophen) 325 Mg Tablet 650 Mg PO PRN Q6HRS PRN MDD 4000mg Diagnosis: Problems: (1) Impulse control disorder (2) Psychosis, atypical (3) Anxiety disorder JANEY LAI MD Dec 08, 2016 18:38
--- NOTE | 2016-12-09 04:13 | PN ---
DATE: 12/07/2016 This late entry for 12/07/2016, covers elements not covered in my initial note. SUBJECTIVE: I met with the patient in the evening of 12/07/2016. Per nursing report, he has been quite appropriate, delusions about his have not been evident. REVIEW OF SYSTEMS: Ambulation impaired with a walker. No CV, , pulmonary, eye, ENT system symptoms on review. MENTAL STATUS EXAM: Oriented reasonably. Speech is coherent, abstraction fair, computation impaired, language function intact. Mood and affect showing improvement. LABORATORY DATA: Reviewed. IMPRESSION: Unchanged from initial note. PLAN: Continue current psychotropics. DISCHARGE PLAN: Possibly for 12/08/2106, to home to outpatient followup. MAN Ainsley LAI MD DR: LUZ/nila JOB#: [id number] / [id number]
--- NOTE | 2016-12-09 18:35 | DS ---
DATE OF DISCHARGE: 12/08/2016 DISCHARGE SUMMARY/PSYCHIATRIC PROGRESS NOTE This is a late entry of 12/08/2016 covers elements not covered in my initial note of 12/08/2016. REASON FOR ADMISSION: Please refer to the admission history for details. Briefly, the patient is an 81-year-old male referred from the [facility] Emergency Room where he presented from home on account of worsening hallucinations, believe someone was in the house at night and that young men were coming in and going into his 's room. He is increasingly agitated. He has adapted using guns had multiple firearms in the home. 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 SIGNIFICANT FINDINGS AND CLINICAL COURSE: Following admission, the patient was seen daily individually from a psychiatric standpoint by myself, followed medically per Dr. Singleton/Dr. Antoine. He was initially quite psychotic, paranoid, and delusional. He was started on Risperdal. This was gradually increased and he responded to a combination of 0.5 mg at 9:00 a.m. and 1 mg at 7:00 p.m. along with melatonin 3 mg at bedtime, Remeron 15 mg at bedtime, Zoloft 75 mg a day, trazodone and Zyprexa p.r.n. Gradually mood improved. Psychotic symptoms appeared to subside. I spent an lengthy individual visits with him to improve his insight and acceptance of his psychotic symptoms, which he had difficulty accepting initially and was totally convinced that his was having young men coming into her home at every night. CONDITION AT DISCHARGE: Improved prior to discharge on 12/08/2016. REVIEW OF SYSTEMS: No CV, , pulmonary, eye, ENT system symptoms on review. Reliability fair. Gait unsteady with a walker. MENTAL STATUS EXAM: Reasonably oriented. Speech coherent, abstraction fair, computation impaired, language function intact. Attention span improved. Mood and affect improved. No active psychotic symptoms, suicidal, or homicidal ideation. CONDITION ON DISCHARGE: Improved. FINAL DIAGNOSES: Major depressive disorder with psychotic features; psychotic disorder, unspecified; impulse control disorder. Rest diagnoses as above. DISCHARGE MEDICATIONS: Please refer to the [facility]AD. DISCHARGE INSTRUCTIONS: Outpatient psychiatric and medical followup was arranged prior to discharge. Time for discharge day management greater than 30 minutes. JANEY LIA MD DR: LUZ/nila JOB#: [id number] / [id number]
== END 2016-12-08 14:38 | disposition home or self-care (01) | DRG 885 ==
LOC: GEROPSY 03:44
PROVIDERS: ADMIT Psychiatry & Neurology Psychiatry; ATTEND Psychiatry & Neurology Psychiatry
DX: F32.3 Major depressive disorder, single episode, severe with psychotic features (principal); I48.91 Unspecified atrial fibrillation; J44.9 Chronic obstructive pulmonary disease, unspecified; E44.1 Mild protein-calorie malnutrition; E11.9 Type 2 diabetes mellitus without complications; I10 Essential (primary) hypertension; D50.9 Iron deficiency anemia, unspecified; E78.5 Hyperlipidemia, unspecified; F41.9 Anxiety disorder, unspecified; F63.9 Impulse disorder, unspecified; M10.9 Gout, unspecified; H91.91 Unspecified hearing loss, right ear; N28.9 Disorder of kidney and ureter, unspecified; R29.6 Repeated falls; Z96.651 Presence of right artificial knee joint; Z86.73 Personal history of transient ischemic attack (TIA), and cerebral infarction without residual deficits; Z87.891 Personal history of nicotine dependence; Z88.0 Allergy status to penicillin; Z88.8 Allergy status to other drugs, medicaments and biological substances; Z79.899 Other long term (current) drug therapy; Z79.84 Long term (current) use of oral hypoglycemic drugs
CPT/HCPCS: 36415; 70450; 76770; 80053; 80061; 81001; 82306; 82607; 82947; 83036; 83540; 83550; 83735; 84436; 84443; 84480; 84550; 85025; 85027; 86592; 86593; 93005; J7512; J8597